=== PATIENT | female | born 1945 | race Caucasian/White ===

== ENCOUNTER → 2017-01-01 | Outpatient (CLI) | payer MEDICARE, MEDICAID ==
[~2017-01-01] MED LIST: ALBU8.5H3 INH; ASCO10004 PO; ASPI-515 PO; BUDE10.22 INH; CARV6.252 PO; CETI10CA PO; CYCL1DRO EACHEYE; DICL100G8 TP; FURO-93 PO; GABA300C10 PO; HYDR-3307 PO; INSU100C5 SQ; INSU100V8 SQ; LATA2.5D3 EACHEYE; LISI-468 PO; METF500T4 PO; METR500T PO; MULT-717 PO; OXYB10TA PO; POTA10CA PO; SIMV20TA3 PO; TIOT18CA INH; VIT1CAPS16 PO; [UNRECOGNIZED DRUG - CODE] PO; [UNRECOGNIZED DRUG - OTHER] EACHEYE; albuterol INH
== END | disposition home or self-care (01) ==
LOC: CFH 07:19
PROVIDERS: ATTEND Physical Medicine & Rehabilitation
DX: R10.9 Unspecified abdominal pain (principal); M47.897 Other spondylosis, lumbosacral region; Z98.890 Other specified postprocedural states; Z90.49 Acquired absence of other specified parts of digestive tract
CPT/HCPCS: 74150

== ENCOUNTER 2017-01-13 12:15 | Emergency (ER) | payer MEDICARE, MEDICAID ==
[~2017-01-13] VITALS: Ht 160 cm; Wt 60.0 kg
[2017-01-13] MEDS ORDERED: HYDROmorphone 1 MG/ML, 1ML ONE (14:59)
[2017-01-13] MEDS ORDERED: HYDROmorphone 1 MG/ML, 1ML IM ONE (15:00)
[2017-01-13 15:11] VITALS: BP 135/93
== END 2017-01-13 15:28 | disposition home or self-care (01) ==
LOC: ED 14:10
DX: R10.9 Unspecified abdominal pain (principal); G89.29 Other chronic pain; J44.9 Chronic obstructive pulmonary disease, unspecified; E11.9 Type 2 diabetes mellitus without complications; J45.909 Unspecified asthma, uncomplicated; F17.210 Nicotine dependence, cigarettes, uncomplicated
CPT/HCPCS: 96372; 99283; J1170

== ENCOUNTER 2017-02-20 09:14 | Emergency (ER) | payer MEDICARE, MEDICAID ==
[~2017-02-20] VITALS: Ht 160 cm; Wt 59.0 kg
[2017-02-20] MEDS ORDERED: HYDROmorphone 1 MG/ML, 1ML IM ONE (10:00)
[2017-02-20] MEDS ORDERED: HYDROmorphone 1 MG/ML, 1ML ONE (10:48)
[2017-02-20 11:33] VITALS: BP 107/76
== END 2017-02-20 11:35 | disposition home or self-care (01) ==
LOC: ED 11:30
DX: S80.01XA Contusion of right knee, initial encounter (principal); E11.9 Type 2 diabetes mellitus without complications; I10 Essential (primary) hypertension; Z88.0 Allergy status to penicillin; W19.XXXA Unspecified fall, initial encounter; Y93.01 Activity, walking, marching and hiking; Y99.8 Other external cause status; Y92.002 Bathroom of unspecified non-institutional (private) residence as the place of occurrence of the external cause
CPT/HCPCS: 73502; 73564; 96372; 99284; J1170

== ENCOUNTER → 2017-03-04 | Outpatient (CLI) | payer MEDICARE, MEDICAID ==
[~2017-03-04] MED LIST changes: +REGADENOSON 0.4 MG/5 ML SYRINGE ONE
== END | disposition home or self-care (01) ==
LOC: CFH 07:22
PROVIDERS: ATTEND Internal Medicine Cardiovascular Disease
DX: I08.3 Combined rheumatic disorders of mitral, aortic and tricuspid valves (principal); I10 Essential (primary) hypertension; E11.9 Type 2 diabetes mellitus without complications; F17.210 Nicotine dependence, cigarettes, uncomplicated
CPT/HCPCS: 78452; 93017; 93306; A9502; J2785

== ENCOUNTER 2017-04-15 09:31 | Day surgery (SDC) | payer MEDICARE, MEDICAID ==
[~2017-04-15] VITALS: Ht 157.5 cm; Wt 62.0 kg
[~2017-04-15 09:31] MED LIST changes: -REGADENOSON 0.4 MG/5 ML SYRINGE ONE
[2017-04-15] MEDS ORDERED: SODIUM CHLORIDE 0.9% 1,000 ML IV SCH (10:27)
[2017-04-15] MEDS ORDERED: ACETAMINOPHEN 325 MG TABLET PO PRN (10:30)
[2017-04-15] MEDS ORDERED: BISACODYL 5 MG EC TABLET PO PRN (10:30)
[2017-04-15] MEDS ORDERED: ONDANSETRON 2MG/ML, 2ML IVPush PRN (10:30)
[2017-04-15] MEDS ORDERED: BISACODYL 10 MG SUPP PR PRN (10:30)
[2017-04-15] MEDS ORDERED: OXYC1TAB7 PO (11:18)
[2017-04-15] MEDS ORDERED: IBUP-1222 PO (11:18)
[2017-04-15] MEDS ORDERED: LOPE2CAP PO (11:18)
[2017-04-15] MEDS ORDERED: CHOL2000 PO (11:18)
[2017-04-15] MEDS ORDERED: AMLO10TA2 PO (11:18)
[2017-04-15] MEDS ORDERED: ONDA4TAB13 SL (11:18)
[2017-04-15] MEDS ORDERED: TRAZ50TA18 PO (11:18)
[2017-04-15] MEDS ORDERED: SERT100T5 PO (11:18)
[2017-04-15] MEDS ORDERED: INSU100V SQ (11:18)
[2017-04-15] MEDS ORDERED: BECL8.7H NS (11:18)
[2017-04-15] MEDS ORDERED: MONT10TA9 PO (11:18)
[2017-04-15] MEDS ORDERED: RISP0.5T3 PO (11:18)
[2017-04-15] MEDS ORDERED: OMEP40CA6 PO (11:18)
[2017-04-15] MEDS ORDERED: CALC-72 PO (11:18)
[2017-04-15] MEDS ORDERED: ATOR40TA PO (11:18)
[2017-04-15 11:19] LABS: BLOOD UREA NITROGEN 13 mg/dL (7-18)
[2017-04-15] MEDS ORDERED: FENTANYL PF 100 MCG/2ML ONE (11:34)
[2017-04-15] MEDS ORDERED: MIDAZOLAM 1 MG/ML, 5ML ONE (11:34)
[2017-04-15] MEDS ORDERED: LIDOCAINE 2%, 20ML ONE (11:34)
[2017-04-15] MEDS ORDERED: SODIUM CHLORIDE 0.9% 500 ML IV SCH (13:30)
[2017-04-15] MEDS ORDERED: ALUMINUM/MAG/SIMETHICONE 30 ML UDC PO ONE (15:30)
[2017-04-15] MEDS ORDERED: ZOLPIDEM 5MG TABLET PO PRN (21:00)
== END 2017-04-15 16:33 | disposition home or self-care (01) ==
LOC: CACL 09:31
PROVIDERS: ATTEND Internal Medicine Cardiovascular Disease
DX: I25.10 Atherosclerotic heart disease of native coronary artery without angina pectoris (principal); E78.5 Hyperlipidemia, unspecified; E11.9 Type 2 diabetes mellitus without complications; I10 Essential (primary) hypertension; F17.210 Nicotine dependence, cigarettes, uncomplicated; Z88.6 Allergy status to analgesic agent; J44.9 Chronic obstructive pulmonary disease, unspecified; E78.00 Pure hypercholesterolemia, unspecified; K21.9 Gastro-esophageal reflux disease without esophagitis; Z79.01 Long term (current) use of anticoagulants
CPT/HCPCS: 36415; 71020; 80048; 85025; 85610; 85730; 93458; 99156; C1894; J2250; J3010; J3490; Q9967

== ENCOUNTER → 2017-04-23 | Outpatient (CLI) | payer MEDICARE, MEDICAID ==
[~2017-04-23] MED LIST changes: +AMLO10TA2 PO; +ATOR40TA PO; +BECL8.7H NS; +CALC-72 PO; +CHOL2000 PO; +IBUP-1222 PO; +INSU100V SQ; +LOPE2CAP PO; +MONT10TA9 PO; +OMEP40CA6 PO; +ONDA4TAB13 SL; +OXYC1TAB7 PO; +RISP0.5T3 PO; +SERT100T5 PO; +TRAZ50TA18 PO
== END | disposition home or self-care (01) ==
LOC: CFH 11:02
PROVIDERS: ATTEND Physical Medicine & Rehabilitation
DX: M19.072 Primary osteoarthritis, left ankle and foot (principal); M77.32 Calcaneal spur, left foot

== ENCOUNTER → 2017-06-29 | Outpatient (CLI) | payer MEDICARE, MEDICAID ==
[~2017-06-29] MED LIST changes: -ALBU8.5H3 INH; +ALBU8.5H8 INH; +CALC-534 PO; -CALC-72 PO; +DICL100G19 TP; -DICL100G8 TP
== END | disposition home or self-care (01) ==
LOC: CFH 15:34
PROVIDERS: ATTEND Physical Medicine & Rehabilitation
DX: M50.323 Other cervical disc degeneration at C6-C7 level (principal); M48.03 Spinal stenosis, cervicothoracic region; M48.02 Spinal stenosis, cervical region; M25.511 Pain in right shoulder; Z98.890 Other specified postprocedural states
CPT/HCPCS: 72125

== ENCOUNTER → 2017-06-30 | Outpatient (CLI) | payer MEDICARE, MEDICAID ==
[~2017-06-30] MED LIST changes: +LIDOCAINE 1%, 20ML ONE; +OMNIPAQUE 300 MG/ML, 10ML VIAL ONE
== END ==
LOC: RAD 13:24
PROVIDERS: ATTEND Physical Medicine & Rehabilitation
DX: M75.101 Unspecified rotator cuff tear or rupture of right shoulder, not specified as traumatic (principal); M94.211 Chondromalacia, right shoulder; M54.12 Radiculopathy, cervical region; E11.9 Type 2 diabetes mellitus without complications
CPT/HCPCS: 73040; 73201; 82962; J3490; Q9967

== ENCOUNTER 2017-07-02 08:45 | Emergency (ER) | payer MEDICARE, MEDICAID ==
[~2017-07-02] VITALS: Ht 160 cm; Wt 59.0 kg
[~2017-07-02 08:45] MED LIST changes: -LIDOCAINE 1%, 20ML ONE; -OMNIPAQUE 300 MG/ML, 10ML VIAL ONE
[2017-07-02 08:50] VITALS: BP 138/81
[2017-07-02] MEDS ORDERED: OXYcodone/APAP 5/325MG TABLET ONE (09:19)
[2017-07-02] MEDS ORDERED: NAPROXEN 500 MG TABLET PO ONE (09:30)
[2017-07-02] MEDS ORDERED: OXYcodone/APAP 5/325MG TABLET PO ONE (09:30)
[2017-07-02] MEDS ORDERED: FLUCONAZOLE 100 MG TABLET PO ONE (11:30)
== END 2017-07-02 10:48 | disposition home or self-care (01) ==
LOC: ED 09:02
DX: G89.29 Other chronic pain (principal); M25.552 Pain in left hip; M25.511 Pain in right shoulder; J44.9 Chronic obstructive pulmonary disease, unspecified; E11.9 Type 2 diabetes mellitus without complications; I10 Essential (primary) hypertension; F17.200 Nicotine dependence, unspecified, uncomplicated; Z88.1 Allergy status to other antibiotic agents
CPT/HCPCS: 99284

== ENCOUNTER 2017-08-17 05:38 | Day surgery (SDC) | payer MEDICARE, MEDICAID ==
[~2017-08-17] VITALS: Ht 160 cm; Wt 62.1 kg
[~2017-08-17 05:38] MED LIST changes: +OXYC5CAP2 PO
[2017-08-17] MEDS ORDERED: FENTANYL PF 100 MCG/2ML ONE (06:07)
[2017-08-17] MEDS ORDERED: PROPOFOL 10 MG/ML, 20ML ONE (06:08)
[2017-08-17] MEDS ORDERED: LACTATED RINGERS 1,000 ML IV SCH (06:08)
[2017-08-17] MEDS ORDERED: CEFAZOLIN 1,000 MG ONE (06:08)
[2017-08-17] MEDS ORDERED: ONDANSETRON 2MG/ML, 2ML ONE (06:08)
[2017-08-17] MEDS ORDERED: DEXAMETHASONE 4 MG/ML, 1ML ONE (06:08)
[2017-08-17] MEDS ORDERED: MIDAZOLAM 1 MG/ML, 2ML ONE (06:08)
[2017-08-17] MEDS ORDERED: EPINEPHRINE 1 MG/ML, 1ML ONE (06:09)
[2017-08-17] MEDS ORDERED: BUPIVACAINE/PF 0.5% ONE (06:09)
[2017-08-17] MEDS ORDERED: LIDOCAINE/PF 1%, 30ML ONE (06:09)
[2017-08-17 06:11] VITALS: BP 93/61
[2017-08-17] MEDS ORDERED: LIDOCAINE GEL 2%, 5ML ONE (06:12)
[2017-08-17] MEDS ORDERED: SUCCINYLCHOLINE 20 MG/ML, 10ML ONE (07:05)
[2017-08-17] MEDS ORDERED: EPHEDRINE 50 MG/ML, 1ML ONE (07:05)
[2017-08-17] MEDS ORDERED: PHENYLEPHRINE 10 MG/ML ONE (07:05)
[2017-08-17] MEDS ORDERED: LIDOCAINE 1%-EPI 1:100K, 30ML INFIL ONE (07:33)
[2017-08-17] MEDS ORDERED: BUPIVACAINE/PF-EPI 0.5% 1:200K INFIL ONE (07:34)
[2017-08-17] MEDS ORDERED: TEMPLATE NON-FORMULARY MED. (Oxycodone Hcl** 5 MG) PO SCH (08:00)
[2017-08-17] MEDS ORDERED: FENTANYL PF 100 MCG/2ML IV PRN (08:00)
[2017-08-17] MEDS ORDERED: LORazepam 2 MG/ML, 1ML IVPush PRN (08:00)
[2017-08-17] MEDS ORDERED: DIAZEPAM 5 MG/ML, 2ML IVPush PRN (08:00)
[2017-08-17] MEDS ORDERED: LABETALOL 5MG/ML, 20ML IV PRN (08:00)
[2017-08-17] MEDS ORDERED: MEPERIDINE/PF 25MG/0.5ML IVPush PRN (08:00)
[2017-08-17] MEDS ORDERED: ACETAMINOPHEN 325 MG TABLET PO PRN (08:00)
[2017-08-17] MEDS ORDERED: ASPIRIN 81 MG TABLET EC PO SCH (08:00)
[2017-08-17] MEDS ORDERED: PROMETHAZINE 25 MG/ML, 1ML IV PRN (08:00)
[2017-08-17] MEDS ORDERED: ONDANSETRON 2MG/ML, 2ML IVPush PRN (08:00)
[2017-08-17] MEDS ORDERED: OXYcodone 5 MG/5 ML ORAL.SOL UDC PO PRN (08:00)
[2017-08-17] MEDS ORDERED: ALBUTEROL/IPRATROPIUM 2.5MG/0.5MG, 3 ML NPPB PRN (08:00)
[2017-08-17] MEDS ORDERED: hydrALAzine 20 MG/ML, 1ML IV PRN (08:00)
[2017-08-17] MEDS ORDERED: HYDROmorphone 1 MG/ML, 1ML IV PRN (08:00)
[2017-08-17] MEDS ORDERED: MIDAZOLAM 1 MG/ML, 2ML IV PRN (08:00)
[2017-08-17] MEDS ORDERED: ONDANSETRON ODT 4 MG PO PRN (08:00)
[2017-08-17] MEDS ORDERED: BECLOMETHASONE DIPROPIONATE NS SCH (09:00)
[2017-08-17] MEDS ORDERED: AMLODIPINE 5 MG TABLET PO SCH (09:00)
[2017-08-17] MEDS ORDERED: LOPERAMIDE 2 MG CAPSULE PO SCH (09:00)
[2017-08-17] MEDS ORDERED: GABAPENTIN 300 MG CAPSULE PO SCH (09:00)
[2017-08-17] MEDS ORDERED: CARVEDILOL 6.25 MG TABLET PO SCH (09:00)
[2017-08-17] MEDS ORDERED: metFORMIN 500 MG TABLET PO SCH (09:00)
[2017-08-17] MEDS ORDERED: MONTELUKAST 10 MG TABLET PO SCH (09:00)
[2017-08-17] MEDS ORDERED: OMEPRAZOLE 20 MG CAPSULE.DR PO SCH (09:00)
[2017-08-17] MEDS ORDERED: SERTRALINE 100MG TABLET PO SCH (09:00)
[2017-08-17] MEDS ORDERED: INSULIN LISPRO SQ SCH (11:00)
[2017-08-17] MEDS ORDERED: ATORVASTATIN 40 MG TABLET PO SCH (21:00)
[2017-08-17] MEDS ORDERED: INSULIN DETEMIR 100 UNITS/ML, PEN SQ-INSULIN SCH (21:00)
[2017-08-17] MEDS ORDERED: RISPERIDONE 0.5 MG TABLET PO SCH (21:00)
[2017-08-17] MEDS ORDERED: TRAZODONE 50MG TABLET PO SCH (21:00)
[2017-08-17] MEDS ORDERED: TIOTROPIUM BROMIDE INH SCH (21:00)
== END 2017-08-17 10:20 ==
LOC: OUT 05:38
PROVIDERS: ATTEND Orthopaedic Surgery
DX: M75.41 Impingement syndrome of right shoulder (principal); M75.111 Incomplete rotator cuff tear or rupture of right shoulder, not specified as traumatic; M19.011 Primary osteoarthritis, right shoulder; E11.9 Type 2 diabetes mellitus without complications; E78.00 Pure hypercholesterolemia, unspecified; J44.9 Chronic obstructive pulmonary disease, unspecified; G89.29 Other chronic pain; Z96.651 Presence of right artificial knee joint; Z98.890 Other specified postprocedural states; Z90.710 Acquired absence of both cervix and uterus
CPT/HCPCS: 29823; 29826; 82962; 93005; C1763; J0171; J0330; J0690; J1100; J2250; J2370; J2405; J2704; J3010; J3490

== ENCOUNTER 2017-10-26 10:39 | Emergency (ER) | payer MEDICARE, MEDICAID ==
[~2017-10-26] VITALS: Ht 160 cm; Wt 56.8 kg
[2017-10-26 11:27] VITALS: BP 132/82
[2017-10-26 12:10] LABS: BASOPHILS # (AUTO) 0.07 x10^3/uL (0-0.1); BASOPHILS % (AUTO) 1 % (0-1); EOSINOPHILS # (AUTO) 0.09 x10^3/uL (0-0.4); EOSINOPHILS % (AUTO) 1 % (1-7); LYMPHOCYTES # (AUTO) 2.72 x10^3/uL (1-3.4); LYMPHOCYTES % (AUTO) 26 % (22-44); MD NO; MEAN CORPUSCULAR HEMOGLOBIN 29.7 pg (27.0-34.8); MEAN CORPUSCULAR HGB CONC 33.4 g/dL (32.4-35.8); MEAN CORPUSCULAR VOLUME 88.7 fL (80-100); MEAN PLATELET VOLUME 8.7 fL (7.4-10.4); MONOCYTES # (AUTO) 0.74 x10^3/uL (0.2-0.8); MONOCYTES % (AUTO) 7 % (2-9); NEUTROPHILS # (AUTO) 6.73 x10^3/uL (1.8-6.8); NEUTROPHILS % (AUTO) 65 % (42-75); PLATELET COUNT 275 x10^3/uL (130-400); RED BLOOD COUNT 5.14 x10^6/uL (3.82-5.3); RED CELL DISTRIBUTION WIDTH 14.9 % (9.6-15.2)
[2017-10-26 12:20] LABS: ALBUMIN 3.9 g/dL (3.4-5.0); ANION GAP 8 mmol/L (5-15); CALCIUM 9.5 mg/dL (8.5-10.1); CHLORIDE 102 mmol/L (98-107); CREATININE 0.81 mg/dL (0.55-1.02)
[2017-10-26 12:24] LABS: TROPONIN I < 0.015 ng/mL (0.000-0.045)
[2017-10-26] MEDS ORDERED: OXYcodone/APAP 5/325MG TABLET ONE (13:07)
[2017-10-26] MEDS ORDERED: OXYcodone/APAP 5/325MG TABLET PO ONE (13:30)
== END 2017-10-26 13:24 | disposition home or self-care (01) ==
LOC: ED 13:06
DX: R07.89 Other chest pain (principal); J20.8 Acute bronchitis due to other specified organisms; B96.89 Other specified bacterial agents as the cause of diseases classified elsewhere; E11.9 Type 2 diabetes mellitus without complications; E78.5 Hyperlipidemia, unspecified; I10 Essential (primary) hypertension; J44.9 Chronic obstructive pulmonary disease, unspecified
CPT/HCPCS: 36415; 71046; 80048; 82040; 84484; 85025; 93005; 99285

== ENCOUNTER 2018-01-18 09:09 | Emergency (ER) | payer MEDICARE, MEDICAID ==
[~2018-01-18] VITALS: Ht 160 cm; Wt 57.0 kg
[2018-01-18 10:43] VITALS: BP 153/77
[2018-01-18 10:57] LABS: BASOPHILS # (AUTO) 0.05 x10^3/uL (0-0.1); BASOPHILS % (AUTO) 0 % (0-1); EOSINOPHILS % (AUTO) 1 % (1-7); LYMPHOCYTES # (AUTO) 3.04 x10^3/uL (1-3.4); LYMPHOCYTES % (AUTO) 27 % (22-44); MD NO; MEAN CORPUSCULAR HEMOGLOBIN 30.8 pg (27.0-34.8); MEAN CORPUSCULAR HGB CONC 33.8 g/dL (32.4-35.8); MEAN PLATELET VOLUME 8.1 fL (7.4-10.4); MONOCYTES # (AUTO) 0.76 x10^3/uL (0.2-0.8); MONOCYTES % (AUTO) 7 % (2-9); NEUTROPHILS # (AUTO) 7.22 x10^3/uL (1.8-6.8); NEUTROPHILS % (AUTO) 65 % (42-75); PLATELET COUNT 274 x10^3/uL (130-400); RED BLOOD COUNT 4.36 x10^6/uL (3.82-5.3); RED CELL DISTRIBUTION WIDTH 14.3 % (9.6-15.2)
[2018-01-18] MEDS ORDERED: OXYcodone/APAP 10/325MG TABLET PO ONE (11:00)
[2018-01-18 11:03] LABS: INTERNATIONAL NORMALIZED RATIO 1.05 (0.93-1.1); PROTHROMBIN TIME 10.8 Seconds (9.6-11.5)
[2018-01-18] MEDS ORDERED: OXYcodone/APAP 10/325MG TABLET ONE (11:05)
[2018-01-18 11:07] LABS: ALANINE AMINOTRANSFERASE 18 U/L (12-78); ALBUMIN 3.6 g/dL (3.4-5.0); ANION GAP 9 mmol/L (5-15); CALCIUM 8.5 mg/dL (8.5-10.1); CHLORIDE 105 mmol/L (98-107); CREATININE 0.99 mg/dL (0.55-1.02)
[2018-01-18 11:10] LABS: ALKALINE PHOSPHATASE 66 U/L (45-117); BILIRUBIN,TOTAL 0.6 mg/dL (0.2-1.0); TOTAL PROTEIN 6.8 g/dL (6.4-8.2)
== END 2018-01-18 12:07 | disposition home or self-care (01) ==
LOC: ED 11:43
DX: R10.13 Epigastric pain (principal); I10 Essential (primary) hypertension; E11.9 Type 2 diabetes mellitus without complications; J44.9 Chronic obstructive pulmonary disease, unspecified; E78.5 Hyperlipidemia, unspecified; F17.200 Nicotine dependence, unspecified, uncomplicated
CPT/HCPCS: 36415; 74022; 80053; 83605; 83690; 85025; 85610; 93005; 99285

== ENCOUNTER 2018-01-25 09:31 | Emergency (ER) | payer MEDICARE, MEDICAID ==
[~2018-01-25] VITALS: Ht 160 cm; Wt 55.3 kg
[2018-01-25] MEDS ORDERED: OXYcodone/APAP 10/325MG TABLET ONE (10:14)
[2018-01-25 10:26] VITALS: BP 142/70
[2018-01-25] MEDS ORDERED: OXYcodone/APAP 10/325MG TABLET PO ONE (10:30)
== END 2018-01-25 10:47 | disposition home or self-care (01) ==
LOC: ED 10:32
DX: M54.6 Pain in thoracic spine (principal); M54.5 Low back pain; I10 Essential (primary) hypertension; E11.9 Type 2 diabetes mellitus without complications; E78.5 Hyperlipidemia, unspecified; J44.9 Chronic obstructive pulmonary disease, unspecified; F17.200 Nicotine dependence, unspecified, uncomplicated; Z79.4 Long term (current) use of insulin; Z79.82 Long term (current) use of aspirin
CPT/HCPCS: 99283

== ENCOUNTER 2018-01-30 08:00 | Emergency (ER) | payer MEDICARE, MEDICAID ==
[~2018-01-30] VITALS: Ht 160 cm; Wt 55.0 kg
[2018-01-30 08:02] VITALS: BP 143/83
== END 2018-01-30 08:58 | disposition home or self-care (01) ==
LOC: ED 08:52
DX: M54.42 Lumbago with sciatica, left side (principal); J44.9 Chronic obstructive pulmonary disease, unspecified; E11.9 Type 2 diabetes mellitus without complications; E78.5 Hyperlipidemia, unspecified; I10 Essential (primary) hypertension
CPT/HCPCS: 99281

== ENCOUNTER 2018-03-04 14:29 | Inpatient (IN) | payer MEDICARE, MEDICAID ==
[~2018-03-04] VITALS: Ht 160 cm; Wt 58.8 kg
[2018-03-04] MEDS ORDERED: SODIUM CHLORIDE FLUSH 10ML SYR IVF ONE ×2 (15:00→15:30)
[2018-03-04] MEDS ORDERED: SODIUM CHLORIDE 0.9% 1,000ML IVBOLUS ONE (15:30)
[2018-03-04 15:53] LABS: INTERNATIONAL NORMALIZED RATIO 0.96 (0.93-1.1); MEAN CORPUSCULAR HEMOGLOBIN 30.3 pg (27.0-34.8); MEAN CORPUSCULAR VOLUME 89.3 fL (80-100); MEAN PLATELET VOLUME 9.1 fL (7.4-10.4); PLATELET COUNT 285 x10^3/uL (130-400); RED BLOOD COUNT 3.38 x10^6/uL (3.82-5.3); RED CELL DISTRIBUTION WIDTH 14.2 % (9.6-15.2)
[2018-03-04 15:56] LABS: ALANINE AMINOTRANSFERASE 17 U/L (12-78); ALBUMIN 2.6 g/dL (3.4-5.0); ANION GAP 14 mmol/L (5-15); CALCIUM 9.9 mg/dL (8.5-10.1); CHLORIDE 101 mmol/L (98-107); CREATININE 3.66 mg/dL (0.55-1.02)
[2018-03-04 15:58] LABS: ALKALINE PHOSPHATASE 75 U/L (45-117); BILIRUBIN,TOTAL 0.2 mg/dL (0.2-1.0); TOTAL PROTEIN 6.7 g/dL (6.4-8.2)
[2018-03-04] MEDS ORDERED: CEFTRIAXONE PMX 1GM/50ML 50 ML IV ONE (16:00)
[2018-03-04] MEDS ORDERED: SODIUM CHLORIDE 0.9%, 500ML IVBOLUS ONE ×2 (16:00→16:30)
[2018-03-04 16:03] LABS: TROPONIN I < 0.015 ng/mL (0.000-0.045)
[2018-03-04 16:10] LABS: MICROSCOPIC INDICATED
[2018-03-04 16:13] LABS: CULTURE INDICATED? YES
[2018-03-04] MEDS ORDERED: CEFTRIAXONE PMX 1GM/50ML 50 ML ONE (16:20)
[2018-03-04 16:26] LABS: BASOPHILS # (AUTO) 0.06 x10^3/uL (0-0.1); BASOPHILS % (AUTO) 0 % (0-1); EOSINOPHILS % (AUTO) 1 % (1-7); LYMPHOCYTES # (AUTO) 1.94 x10^3/uL (1-3.4); LYMPHOCYTES % (AUTO) 11 % (22-44); MONOCYTES # (AUTO) 1.23 x10^3/uL (0.2-0.8); MONOCYTES % (AUTO) 7 % (2-9); NEUTROPHILS # (AUTO) 14.33 x10^3/uL (1.8-6.8); NEUTROPHILS % (AUTO) 81 % (42-75)
[2018-03-04 16:27] LABS: MD SCAN
[2018-03-04] MEDS: PIPERACILLIN/TAZO/PMX 2.25GM 50 ML IVPB SCH (17:25)
[2018-03-04] MEDS ORDERED: ONDANSETRON ODT 4 MG PO PRN (17:30)
[2018-03-04] MEDS: INSULIN LISPRO 100 UNITS/ML, PEN SQ-INSULIN SCH ×2 (17:30→22:00)
[2018-03-04] MEDS ORDERED: POLYETHYLENE GLYCOL 17 GM PACKET PO PRN (17:30)
[2018-03-04] MEDS ORDERED: NOREPINEPHRINE 4 MG in SODIUM CHLORIDE 0.9% 246 ML IV PRN (17:30)
[2018-03-04] MEDS ORDERED: MICAFUNGIN 100 MG in SODIUM CHLORIDE 0.9% 100 ML IV SCH (17:30)
[2018-03-04] MEDS: SODIUM CHLORIDE 0.9% 1,000 ML IV SCH ×2 (17:30→23:36)
[2018-03-04] MEDS ORDERED: PROMETHAZINE 25 MG/ML, 1ML IM PRN (17:30)
[2018-03-04] MEDS ORDERED: ACETAMINOPHEN 325 MG TABLET PO PRN (17:30)
[2018-03-04] MEDS ORDERED: DOCUSATE 100 MG CAPSULE PO PRN (17:30)
[2018-03-04] MEDS ORDERED: PIPERACILLIN/TAZO 2.25 GM in SODIUM CHLORIDE 0.9% 50 ML IV SCH (17:30)
[2018-03-04] MEDS ORDERED: BISACODYL 10 MG SUPP PR PRN (17:30)
[2018-03-04] MEDS ORDERED: morphine SULFATE 10 MG/ML, 1ML IVPush PRN (17:30)
[2018-03-04] MEDS ORDERED: VANCOMYCIN PER PHARMACY MC PRN (17:30)
[2018-03-04 18:05] LABS: HEMOGLOBIN A1C 7.7 % (4.2-6.3)
[2018-03-04] MEDS ORDERED: HEPARIN 5,000 UNITS/ML, 1ML ONE (18:19)
[2018-03-04] MEDS: HEPARIN 5,000 UNITS/ML, 1ML SQ SCH (18:23)
[2018-03-04] MEDS: NICOTINE 14MG/24 HR PATCH.TD24 TD SCH (19:14)
[2018-03-04] MEDS ORDERED: NICOTINE 14MG/24 HR PATCH.TD24 ONE (19:15)
[2018-03-04] MEDS ORDERED: BUSP10TA PO (19:19)
[2018-03-04] MEDS: MICAFUNGIN 100 MG in SODIUM CHLORIDE 0.9% 100 ML IV SCH (19:49)
[2018-03-04 20:00] VITALS: BP 105/46
[2018-03-04] MEDS ORDERED: PHARMACOKINETIC MONITORING MC PRN (20:30)
[2018-03-04] MEDS ORDERED: IPRATROPIUM 0.5 MG/2.5 ML INHA NPPB SCH (20:30)
[2018-03-04] MEDS ORDERED: PHARMACOKINETIC CONSULTATION MC ONE (20:30)
[2018-03-04] MEDS ORDERED: VANCOMYCIN PMX 1GM/200ML 200 ML IV ONE (21:00)
[2018-03-04] MEDS: ATORVASTATIN 40 MG TABLET PO SCH (21:50)
[2018-03-04] MEDS: GABAPENTIN 300 MG CAPSULE PO SCH (21:50)
[2018-03-04] MEDS: TRAZODONE 50MG TABLET PO SCH (21:51)
[2018-03-04] MEDS: RISPERIDONE 0.5 MG TABLET PO SCH (21:51)
[2018-03-04] MEDS: NOREPINEPHRINE 4 MG in SODIUM CHLORIDE 0.9% 246 ML IV PRN (23:39)
[2018-03-05] MEDS: PIPERACILLIN/TAZO/PMX 2.25GM 50 ML IVPB SCH ×5 (00:18→23:50)
[2018-03-05] MEDS: HEPARIN 5,000 UNITS/ML, 1ML SQ SCH ×3 (01:28→16:17)
[2018-03-05 04:00] VITALS: BP 118/50
[2018-03-05 04:34] LABS: MEAN CORPUSCULAR HEMOGLOBIN 30.5 pg (27.0-34.8); MEAN CORPUSCULAR HGB CONC 34.2 g/dL (32.4-35.8); MEAN CORPUSCULAR VOLUME 89.1 fL (80-100); MEAN PLATELET VOLUME 8.8 fL (7.4-10.4); PLATELET COUNT 311 x10^3/uL (130-400); RED CELL DISTRIBUTION WIDTH 14.5 % (9.6-15.2)
[2018-03-05 04:44] LABS: ALANINE AMINOTRANSFERASE 16 U/L (12-78); ALBUMIN 2.1 g/dL (3.4-5.0); ANION GAP 11 mmol/L (5-15); CALCIUM 8.7 mg/dL (8.5-10.1); CHLORIDE 115 mmol/L (98-107); CREATININE 1.86 mg/dL (0.55-1.02)
[2018-03-05 04:47] LABS: ALKALINE PHOSPHATASE 71 U/L (45-117); BILIRUBIN,TOTAL 0.4 mg/dL (0.2-1.0); TOTAL PROTEIN 5.8 g/dL (6.4-8.2)
[2018-03-05 05:13] LABS: BASOPHILS # (AUTO) 0.01 x10^3/uL (0-0.1); BASOPHILS % (AUTO) 0 % (0-1); EOSINOPHILS # (AUTO) 0.17 x10^3/uL (0-0.4); EOSINOPHILS % (AUTO) 1 % (1-7); LYMPHOCYTES # (AUTO) 2.27 x10^3/uL (1-3.4); LYMPHOCYTES % (AUTO) 12 % (22-44); MD SCAN; MONOCYTES # (AUTO) 1.14 x10^3/uL (0.2-0.8); MONOCYTES % (AUTO) 6 % (2-9); NEUTROPHILS # (AUTO) 15.65 x10^3/uL (1.8-6.8); NEUTROPHILS % (AUTO) 81 % (42-75)
[2018-03-05] MEDS: NOREPINEPHRINE 4 MG in SODIUM CHLORIDE 0.9% 246 ML IV PRN ×2 (05:18→09:50)
[2018-03-05] MEDS: SODIUM BICARB 8.4%,50ML SYR. 50 MEQ in SODIUM CHLORIDE 0.45% 1,000 ML IV SCH ×2 (07:54→14:37)
[2018-03-05] MEDS: INSULIN LISPRO 100 UNITS/ML, PEN SQ-INSULIN SCH ×4 (07:55→21:32)
[2018-03-05] MEDS: IPRATROPIUM 0.5 MG/2.5 ML INHA NPPB SCH ×2 (08:30→20:18)
[2018-03-05] MEDS: BUDESONIDE 0.5 MG/2 ML INHA NPPB SCH ×2 (08:30→20:18)
[2018-03-05] MEDS: ASPIRIN 81 MG TABLET EC PO SCH (09:36)
[2018-03-05] MEDS: LATANOPROST OPHTH 0.005%, 2.5ML EACHEYE SCH (09:36)
[2018-03-05] MEDS: POTASSIUM CHLORIDE 10% 40 MEQ/30 ML UDC PO SCH ×2 (09:37→21:21)
[2018-03-05] MEDS: SERTRALINE 100MG TABLET PO SCH (09:37)
[2018-03-05] MEDS: GABAPENTIN 300 MG CAPSULE PO SCH ×3 (09:37→21:22)
[2018-03-05] MEDS: CHOLECALCIFEROL 1,000 UNIT TABLET PO SCH (09:37)
[2018-03-05] MEDS: MONTELUKAST 10 MG TABLET PO SCH (09:41)
[2018-03-05] MEDS: CIPROFLOXACIN OPHTH SOLN 0.3%, 5ML EACHEYE SCH ×4 (11:12→21:22)
[2018-03-05] MEDS: NICOTINE 14MG/24 HR PATCH.TD24 TD SCH (16:16)
[2018-03-05 19:02] LABS: RAPID INFLUENZA A Negative (Negative); RAPID INFLUENZA B Negative (Negative)
[2018-03-05] MEDS: MICAFUNGIN 100 MG in SODIUM CHLORIDE 0.9% 100 ML IV SCH (20:31)
[2018-03-05] MEDS: RISPERIDONE 0.5 MG TABLET PO SCH (21:22)
[2018-03-05] MEDS: ATORVASTATIN 40 MG TABLET PO SCH (21:22)
[2018-03-05] MEDS: TRAZODONE 50MG TABLET PO SCH (21:22)
[2018-03-06] MEDS: SODIUM BICARB 8.4%,50ML SYR. 50 MEQ in SODIUM CHLORIDE 0.45% 1,000 ML IV SCH (00:35)
[2018-03-06] MEDS: HEPARIN 5,000 UNITS/ML, 1ML SQ SCH ×3 (00:35→17:41)
[2018-03-06] MEDS: CIPROFLOXACIN OPHTH SOLN 0.3%, 5ML EACHEYE SCH ×6 (02:50→22:58)
[2018-03-06 04:00] VITALS: BP 120/45
[2018-03-06] MEDS: NOREPINEPHRINE 4 MG in SODIUM CHLORIDE 0.9% 246 ML IV PRN (05:37)
[2018-03-06] MEDS: PIPERACILLIN/TAZO/PMX 2.25GM 50 ML IVPB SCH ×4 (05:38→22:59)
[2018-03-06 05:40] LABS: BASOPHILS # (AUTO) 0.03 x10^3/uL (0-0.1); BASOPHILS % (AUTO) 0 % (0-1); EOSINOPHILS # (AUTO) 0.22 x10^3/uL (0-0.4); EOSINOPHILS % (AUTO) 1 % (1-7); LYMPHOCYTES # (AUTO) 2.24 x10^3/uL (1-3.4); LYMPHOCYTES % (AUTO) 14 % (22-44); MD NO; MEAN CORPUSCULAR HEMOGLOBIN 30.3 pg (27.0-34.8); MEAN CORPUSCULAR VOLUME 89.3 fL (80-100); MEAN PLATELET VOLUME 8.4 fL (7.4-10.4); MONOCYTES # (AUTO) 1.19 x10^3/uL (0.2-0.8); MONOCYTES % (AUTO) 8 % (2-9); NEUTROPHILS # (AUTO) 12.19 x10^3/uL (1.8-6.8); NEUTROPHILS % (AUTO) 77 % (42-75); PLATELET COUNT 300 x10^3/uL (130-400); RED BLOOD COUNT 2.93 x10^6/uL (3.82-5.3); RED CELL DISTRIBUTION WIDTH 14.4 % (9.6-15.2)
[2018-03-06 05:49] LABS: ALBUMIN 1.9 g/dL (3.4-5.0); ANION GAP 10 mmol/L (5-15); CALCIUM 8.4 mg/dL (8.5-10.1); CHLORIDE 114 mmol/L (98-107)
[2018-03-06 05:53] LABS: ALANINE AMINOTRANSFERASE 36 U/L (12-78); ALKALINE PHOSPHATASE 80 U/L (45-117); BILIRUBIN,TOTAL 0.5 mg/dL (0.2-1.0); CREATININE 1.01 mg/dL (0.55-1.02); TOTAL PROTEIN 5.5 g/dL (6.4-8.2)
[2018-03-06] MEDS ORDERED: ALBUTEROL/IPRATROPIUM 2.5MG/0.5MG, 3 ML ONE (06:59)
[2018-03-06] MEDS: INSULIN LISPRO 100 UNITS/ML, PEN SQ-INSULIN SCH ×4 (07:00→20:07)
[2018-03-06] MEDS: IPRATROPIUM 0.5 MG/2.5 ML INHA NPPB SCH ×4 (07:28→19:07)
[2018-03-06] MEDS: ALBUTEROL SULFATE 2.5 MG/3 ML NPPB PRN ×3 (07:29→13:53)
[2018-03-06] MEDS: BUDESONIDE 0.5 MG/2 ML INHA NPPB SCH ×3 (07:29→19:07)
[2018-03-06] MEDS: MONTELUKAST 10 MG TABLET PO SCH (08:48)
[2018-03-06] MEDS: GABAPENTIN 300 MG CAPSULE PO SCH ×3 (08:48→20:06)
[2018-03-06] MEDS: SERTRALINE 100MG TABLET PO SCH (08:48)
[2018-03-06] MEDS: ASPIRIN 81 MG TABLET EC PO SCH (08:48)
[2018-03-06] MEDS: CHOLECALCIFEROL 1,000 UNIT TABLET PO SCH (08:48)
[2018-03-06] MEDS: LATANOPROST OPHTH 0.005%, 2.5ML EACHEYE SCH (10:55)
[2018-03-06 15:07] VITALS: BP 122/63
[2018-03-06] MEDS: NICOTINE 14MG/24 HR PATCH.TD24 TD SCH (17:42)
[2018-03-06 18:44] VITALS: BP 116/74
[2018-03-06] MEDS: ATORVASTATIN 40 MG TABLET PO SCH (20:06)
[2018-03-06] MEDS: RISPERIDONE 0.5 MG TABLET PO SCH (20:06)
[2018-03-06] MEDS: TRAZODONE 50MG TABLET PO SCH (20:06)
[2018-03-06] MEDS: MICAFUNGIN 100 MG in SODIUM CHLORIDE 0.9% 100 ML IV SCH (20:07)
[2018-03-07 01:58] VITALS: BP 117/75
[2018-03-07] MEDS: CIPROFLOXACIN OPHTH SOLN 0.3%, 5ML EACHEYE SCH ×6 (03:21→22:51)
[2018-03-07] MEDS: OXYcodone IR 5MG TABLET PO PRN ×4 (03:21→23:22)
[2018-03-07] MEDS: PIPERACILLIN/TAZO/PMX 2.25GM 50 ML IVPB SCH ×2 (04:59→11:18)
[2018-03-07] MEDS: HEPARIN 5,000 UNITS/ML, 1ML SQ SCH ×3 (04:59→20:56)
[2018-03-07] MEDS: INSULIN LISPRO 100 UNITS/ML, PEN SQ-INSULIN SCH ×4 (07:30→20:57)
[2018-03-07] MEDS: LATANOPROST OPHTH 0.005%, 2.5ML EACHEYE SCH (07:32)
[2018-03-07] MEDS: GABAPENTIN 300 MG CAPSULE PO SCH ×3 (07:33→20:39)
[2018-03-07] MEDS: MONTELUKAST 10 MG TABLET PO SCH (07:33)
[2018-03-07] MEDS: CHOLECALCIFEROL 1,000 UNIT TABLET PO SCH (07:33)
[2018-03-07] MEDS: ASPIRIN 81 MG TABLET EC PO SCH (07:33)
[2018-03-07] MEDS: SERTRALINE 100MG TABLET PO SCH (07:37)
[2018-03-07 07:57] VITALS: BP 112/72
[2018-03-07 08:34] LABS: BASOPHILS # (AUTO) 0.06 x10^3/uL (0-0.1); BASOPHILS % (AUTO) 1 % (0-1); EOSINOPHILS # (AUTO) 0.28 x10^3/uL (0-0.4); EOSINOPHILS % (AUTO) 2 % (1-7); LYMPHOCYTES # (AUTO) 3.16 x10^3/uL (1-3.4); LYMPHOCYTES % (AUTO) 24 % (22-44); MD NO; MEAN CORPUSCULAR HEMOGLOBIN 30.1 pg (27.0-34.8); MEAN CORPUSCULAR HGB CONC 33.8 g/dL (32.4-35.8); MEAN CORPUSCULAR VOLUME 89.1 fL (80-100); MONOCYTES % (AUTO) 5 % (2-9); NEUTROPHILS # (AUTO) 9.03 x10^3/uL (1.8-6.8); NEUTROPHILS % (AUTO) 68 % (42-75); PLATELET COUNT 319 x10^3/uL (130-400); RED BLOOD COUNT 3.21 x10^6/uL (3.82-5.3); RED CELL DISTRIBUTION WIDTH 14.6 % (9.6-15.2)
[2018-03-07] MEDS: BUDESONIDE 0.5 MG/2 ML INHA NPPB SCH ×2 (10:37→21:20)
[2018-03-07 13:57] VITALS: BP 131/77
[2018-03-07] MEDS: NICOTINE 14MG/24 HR PATCH.TD24 TD SCH (17:11)
[2018-03-07 19:19] VITALS: BP 125/77
[2018-03-07] MEDS: MICAFUNGIN 100 MG in SODIUM CHLORIDE 0.9% 100 ML IV SCH (20:12)
[2018-03-07] MEDS: ATORVASTATIN 40 MG TABLET PO SCH (20:39)
[2018-03-07] MEDS: RISPERIDONE 0.5 MG TABLET PO SCH (20:39)
[2018-03-07] MEDS: TRAZODONE 50MG TABLET PO SCH (20:39)
[2018-03-07] MEDS: CEFDINIR 300 MG CAPSULE PO SCH (20:39)
[2018-03-07] MEDS: IPRATROPIUM 0.5 MG/2.5 ML INHA NPPB SCH (21:20)
[2018-03-08] MEDS: CIPROFLOXACIN OPHTH SOLN 0.3%, 5ML EACHEYE SCH ×5 (03:22→20:54)
[2018-03-08] MEDS: OXYcodone IR 5MG TABLET PO PRN ×5 (03:34→21:07)
[2018-03-08 03:38] VITALS: BP 114/67
[2018-03-08] MEDS: HEPARIN 5,000 UNITS/ML, 1ML SQ SCH ×3 (05:08→21:07)
[2018-03-08 06:53] VITALS: BP 125/69
[2018-03-08] MEDS: INSULIN LISPRO 100 UNITS/ML, PEN SQ-INSULIN SCH ×4 (08:25→21:00)
[2018-03-08] MEDS: IPRATROPIUM 0.5 MG/2.5 ML INHA NPPB SCH ×2 (10:00→20:23)
[2018-03-08] MEDS: BUDESONIDE 0.5 MG/2 ML INHA NPPB SCH ×2 (10:00→20:23)
[2018-03-08] MEDS: MONTELUKAST 10 MG TABLET PO SCH (10:40)
[2018-03-08] MEDS: CHOLECALCIFEROL 1,000 UNIT TABLET PO SCH (10:40)
[2018-03-08] MEDS: SERTRALINE 100MG TABLET PO SCH (10:40)
[2018-03-08] MEDS: CEFDINIR 300 MG CAPSULE PO SCH ×2 (10:40→20:55)
[2018-03-08] MEDS: ASPIRIN 81 MG TABLET EC PO SCH (10:40)
[2018-03-08] MEDS: GABAPENTIN 300 MG CAPSULE PO SCH ×3 (10:40→20:55)
[2018-03-08] MEDS: LATANOPROST OPHTH 0.005%, 2.5ML EACHEYE SCH (10:43)
[2018-03-08 12:58] VITALS: BP 103/64
[2018-03-08] MEDS: NICOTINE 14MG/24 HR PATCH.TD24 TD SCH (17:47)
[2018-03-08 19:00] VITALS: BP 111/69
[2018-03-08] MEDS: ATORVASTATIN 40 MG TABLET PO SCH (20:54)
[2018-03-08] MEDS: MICAFUNGIN 100 MG in SODIUM CHLORIDE 0.9% 100 ML IV SCH (20:54)
[2018-03-08] MEDS: RISPERIDONE 0.5 MG TABLET PO SCH (20:55)
[2018-03-08] MEDS: TRAZODONE 50MG TABLET PO SCH (20:55)
[2018-03-09] MEDS: CIPROFLOXACIN OPHTH SOLN 0.3%, 5ML EACHEYE SCH ×7 (00:20→23:58)
[2018-03-09 01:00] VITALS: BP 126/76
[2018-03-09] MEDS: HEPARIN 5,000 UNITS/ML, 1ML SQ SCH ×3 (04:32→20:25)
[2018-03-09] MEDS: OXYcodone IR 5MG TABLET PO PRN ×3 (05:34→17:18)
[2018-03-09 06:55] VITALS: BP 146/74
[2018-03-09] MEDS: SERTRALINE 100MG TABLET PO SCH (08:37)
[2018-03-09] MEDS: CEFDINIR 300 MG CAPSULE PO SCH (08:37)
[2018-03-09] MEDS: ASPIRIN 81 MG TABLET EC PO SCH (08:37)
[2018-03-09] MEDS: CHOLECALCIFEROL 1,000 UNIT TABLET PO SCH (08:37)
[2018-03-09] MEDS: LATANOPROST OPHTH 0.005%, 2.5ML EACHEYE SCH (08:37)
[2018-03-09] MEDS: GABAPENTIN 300 MG CAPSULE PO SCH ×3 (08:37→20:25)
[2018-03-09] MEDS: MONTELUKAST 10 MG TABLET PO SCH (08:37)
[2018-03-09] MEDS: INSULIN LISPRO 100 UNITS/ML, PEN SQ-INSULIN SCH ×4 (08:38→20:25)
[2018-03-09] MEDS: IPRATROPIUM 0.5 MG/2.5 ML INHA NPPB SCH ×2 (09:00→21:00)
[2018-03-09] MEDS: BUDESONIDE 0.5 MG/2 ML INHA NPPB SCH ×2 (09:00→21:00)
[2018-03-09 12:20] VITALS: BP 142/80
[2018-03-09] MEDS: NICOTINE 14MG/24 HR PATCH.TD24 TD SCH (17:18)
[2018-03-09 19:00] VITALS: BP 150/84
[2018-03-09] MEDS: MICAFUNGIN 100 MG in SODIUM CHLORIDE 0.9% 100 ML IV SCH (19:48)
[2018-03-09] MEDS: ATORVASTATIN 40 MG TABLET PO SCH (20:25)
[2018-03-09] MEDS: TRAZODONE 50MG TABLET PO SCH (20:25)
[2018-03-09] MEDS: RISPERIDONE 0.5 MG TABLET PO SCH (20:25)
[2018-03-10] MEDS: OXYcodone IR 5MG TABLET PO PRN (00:08)
[2018-03-10 01:59] VITALS: BP 142/78
[2018-03-10] MEDS: CIPROFLOXACIN OPHTH SOLN 0.3%, 5ML EACHEYE SCH ×2 (03:25→08:34)
[2018-03-10] MEDS: HEPARIN 5,000 UNITS/ML, 1ML SQ SCH (05:08)
[2018-03-10 05:58] LABS: CHLORIDE 105 mmol/L (98-107)
[2018-03-10 06:02] LABS: ANION GAP 8 mmol/L (5-15); BASOPHILS # (AUTO) 0.03 x10^3/uL (0-0.1); BASOPHILS % (AUTO) 0 % (0-1); CALCIUM 9.1 mg/dL (8.5-10.1); CREATININE 0.67 mg/dL (0.55-1.02); EOSINOPHILS # (AUTO) 0.34 x10^3/uL (0-0.4); EOSINOPHILS % (AUTO) 4 % (1-7); LYMPHOCYTES # (AUTO) 3.05 x10^3/uL (1-3.4); LYMPHOCYTES % (AUTO) 32 % (22-44); MD NO; MEAN CORPUSCULAR HEMOGLOBIN 30.5 pg (27.0-34.8); MEAN CORPUSCULAR HGB CONC 33.4 g/dL (32.4-35.8); MEAN CORPUSCULAR VOLUME 91.4 fL (80-100); MEAN PLATELET VOLUME 8.1 fL (7.4-10.4); MONOCYTES # (AUTO) 0.86 x10^3/uL (0.2-0.8); MONOCYTES % (AUTO) 9 % (2-9); NEUTROPHILS # (AUTO) 5.27 x10^3/uL (1.8-6.8); NEUTROPHILS % (AUTO) 55 % (42-75); PLATELET COUNT 294 x10^3/uL (130-400); RED BLOOD COUNT 3.14 x10^6/uL (3.82-5.3); RED CELL DISTRIBUTION WIDTH 14.3 % (9.6-15.2)
[2018-03-10 06:39] VITALS: BP 139/80
[2018-03-10] MEDS ORDERED: MAGNESIUM SULFATE PMX 4GM/100M 100 ML IV ONE (07:00)
[2018-03-10] MEDS ORDERED: FLUCONAZOLE 200 MG TABLET PO SCH (07:00)
[2018-03-10] MEDS: MONTELUKAST 10 MG TABLET PO SCH (08:32)
[2018-03-10] MEDS: ASPIRIN 81 MG TABLET EC PO SCH (08:32)
[2018-03-10] MEDS: CHOLECALCIFEROL 1,000 UNIT TABLET PO SCH (08:32)
[2018-03-10] MEDS: SERTRALINE 100MG TABLET PO SCH (08:32)
[2018-03-10] MEDS: GABAPENTIN 300 MG CAPSULE PO SCH (08:32)
[2018-03-10] MEDS: INSULIN LISPRO 100 UNITS/ML, PEN SQ-INSULIN SCH (08:33)
[2018-03-10] MEDS: LATANOPROST OPHTH 0.005%, 2.5ML EACHEYE SCH (08:34)
[2018-03-10] MEDS: BUDESONIDE 0.5 MG/2 ML INHA NPPB SCH (09:00)
[2018-03-10] MEDS: IPRATROPIUM 0.5 MG/2.5 ML INHA NPPB SCH (09:00)
[2018-03-10] MEDS ORDERED: FLUC200T PO (10:26)
== END 2018-03-10 12:00 | disposition home or self-care (01) | DRG 871 ==
LOC: ED 15:37 → EDIP 16:23 → CCU 19:58 → 3NE 03-06 14:40 → DCLOUNGE 03-10 11:45
PROVIDERS: ADMIT Internal Medicine; ATTEND Internal Medicine
PROC: 0T9B70Z Drainage of Bladder with Drainage Device, Via Natural or Artificial Opening (ICD-10-PCS; principal; 2018-03-04)
PROC: 02HV33Z Insertion of Infusion Device into Superior Vena Cava, Percutaneous Approach (ICD-10-PCS; 2018-03-04)
PROC: B548ZZA Ultrasonography of Superior Vena Cava, Guidance (ICD-10-PCS; 2018-03-04)
DX: A41.9 Sepsis, unspecified organism (principal); E43 Unspecified severe protein-calorie malnutrition; N17.0 Acute kidney failure with tubular necrosis; R65.21 Severe sepsis with septic shock; G93.41 Metabolic encephalopathy; K85.90 Acute pancreatitis without necrosis or infection, unspecified; E11.65 Type 2 diabetes mellitus with hyperglycemia; D63.8 Anemia in other chronic diseases classified elsewhere; E87.1 Hypo-osmolality and hyponatremia; B37.49 Other urogenital candidiasis; E78.5 Hyperlipidemia, unspecified; E83.42 Hypomagnesemia; F17.210 Nicotine dependence, cigarettes, uncomplicated; G47.33 Obstructive sleep apnea (adult) (pediatric); H10.9 Unspecified conjunctivitis; H40.9 Unspecified glaucoma; I07.1 Rheumatic tricuspid insufficiency; I10 Essential (primary) hypertension; J30.2 Other seasonal allergic rhinitis; J44.9 Chronic obstructive pulmonary disease, unspecified; K21.9 Gastro-esophageal reflux disease without esophagitis; M06.9 Rheumatoid arthritis, unspecified; R32 Unspecified urinary incontinence; Z87.440 Personal history of urinary (tract) infections; Z68.23 Body mass index [BMI] 23.0-23.9, adult
CPT/HCPCS: 36415; 36556; 71045; 74176; 80048; 80053; 81001; 82533; 82962; 83036; 83605; 83690; 83735; 84100; 84443; 84484; 85025; 85610; 87040; 87081; 87086; 87106; 87186; 87400; 93005; 93306; 94640; 96361; 96365; 96366; 96368; J0696; J1644; J2248; J2543; J3370; J7613; J7626; J7644; 92523-GN; J1815; J3475; J7030; J7040; J7050

== ENCOUNTER 2018-06-16 11:42 | Emergency (ER) | payer MEDICARE, MEDICAID ==
[~2018-06-16] VITALS: Ht 160 cm; Wt 49.7 kg
[~2018-06-16 11:42] MED LIST changes: +BUSP10TA PO; +FLUC200T PO; -METF500T4 PO; +METF500T5 PO; +TRAZ-136 PO; -TRAZ50TA18 PO
[2018-06-16 11:53] VITALS: BP 133/79
[2018-06-16] MEDS ORDERED: HYDROcodone/APAP 5/325 TABLET ONE (12:08)
[2018-06-16] MEDS ORDERED: HYDROcodone/APAP 5/325 TABLET PO ONE (12:30)
== END 2018-06-16 13:33 | disposition home or self-care (01) ==
LOC: ED 13:28
DX: R07.89 Other chest pain (principal); J44.1 Chronic obstructive pulmonary disease with (acute) exacerbation; E11.9 Type 2 diabetes mellitus without complications; G89.29 Other chronic pain; E78.5 Hyperlipidemia, unspecified; F17.200 Nicotine dependence, unspecified, uncomplicated; Z90.49 Acquired absence of other specified parts of digestive tract; Z88.1 Allergy status to other antibiotic agents; Z88.6 Allergy status to analgesic agent
CPT/HCPCS: 99284

== ENCOUNTER 2018-07-16 17:25 | Emergency (ER) | payer MEDICARE, MEDICAID ==
[~2018-07-16] VITALS: Ht 160 cm; Wt 47.5 kg
[~2018-07-16 17:25] MED LIST changes: -AMLO10TA2 PO; +AMLO10TA6 PO; +METF500T17 PO; -METF500T5 PO
[2018-07-16 17:27] VITALS: BP 136/65
[2018-07-16 18:30] LABS: MICROSCOPIC AUTO
[2018-07-16 18:33] LABS: CULTURE INDICATED? YES
== END 2018-07-16 19:26 | disposition home or self-care (01) ==
LOC: ED 18:11
DX: M47.26 Other spondylosis with radiculopathy, lumbar region (principal); M51.16 Intervertebral disc disorders with radiculopathy, lumbar region; E11.9 Type 2 diabetes mellitus without complications; I10 Essential (primary) hypertension; J44.9 Chronic obstructive pulmonary disease, unspecified; E78.5 Hyperlipidemia, unspecified; G89.29 Other chronic pain; R30.0 Dysuria; L29.9 Pruritus, unspecified; Z90.49 Acquired absence of other specified parts of digestive tract
CPT/HCPCS: 72110; 81001; 87086; 93005; 99285

== ENCOUNTER 2018-10-09 07:38 | Emergency (ER) | payer MEDICARE, MEDICAID ==
[~2018-10-09] VITALS: Ht 160 cm; Wt 50.0 kg
[~2018-10-09 07:38] MED LIST changes: -TRAZ-136 PO; +TRAZ50TA66 PO
[2018-10-09 07:43] VITALS: BP 107/68
== END 2018-10-09 08:18 | disposition home or self-care (01) ==
LOC: ED 08:00
DX: B86 Scabies (principal); E78.5 Hyperlipidemia, unspecified; M54.9 Dorsalgia, unspecified; G89.29 Other chronic pain; J44.9 Chronic obstructive pulmonary disease, unspecified; E11.9 Type 2 diabetes mellitus without complications; I10 Essential (primary) hypertension
CPT/HCPCS: 99283

== ENCOUNTER 2018-12-10 10:52 | Emergency (ER) | payer MEDICARE, MEDICAID ==
[~2018-12-10] VITALS: Ht 160 cm; Wt 50.0 kg
[~2018-12-10 10:52] MED LIST changes: -AMLO10TA6 PO; +AMLO10TA8 PO; +SERT100T32 PO; -SERT100T5 PO
--- NOTE | 2018-12-10 12:12 | NUR ---
73 Y/O FEMALE PRESENTS TO ED WITH C/O BED BUGS. "I'VE HAD BED BUGS AT MY PLACE FOR ABOUT 8 MONTHS. I'VE ALSO HAD A COUGH AND RUNNY NOSE FOR ABOUT 4 DAYS." NO ACUTE DISTRESS NOTED. NO C/O N/V/D, TRAUMA, SYNCOPE, SOB. PT PLACED ON CONT PULSE OX,NIBP, CYLINDER LOADER. LAB BEDSIDE.
[2018-12-10 12:28] LABS: BASOPHILS # (AUTO) 0.02 x10^3/uL (0-0.1); BASOPHILS % (AUTO) 0 % (0-1); EOSINOPHILS # (AUTO) 0.08 x10^3/uL (0-0.4); EOSINOPHILS % (AUTO) 1 % (1-7); LYMPHOCYTES # (AUTO) 1.88 x10^3/uL (1-3.4); LYMPHOCYTES % (AUTO) 31 % (22-44); MD NO; MEAN CORPUSCULAR HEMOGLOBIN 22.3 pg (27.0-34.8); MEAN CORPUSCULAR HGB CONC 30.8 g/dL (32.4-35.8); MEAN CORPUSCULAR VOLUME 72.3 fL (80-100); MEAN PLATELET VOLUME 7.8 fL (7.4-10.4); MONOCYTES # (AUTO) 0.43 x10^3/uL (0.2-0.8); MONOCYTES % (AUTO) 7 % (2-9); NEUTROPHILS # (AUTO) 3.72 x10^3/uL (1.8-6.8); NEUTROPHILS % (AUTO) 61 % (42-75); PLATELET COUNT 421 x10^3/uL (130-400); RED BLOOD COUNT 3.79 x10^6/uL (3.82-5.3); RED CELL DISTRIBUTION WIDTH 16.9 % (9.6-15.2)
[2018-12-10 12:36] LABS: ALBUMIN 3.7 g/dL (3.4-5.0); ANION GAP 4 mmol/L (5-15); CHLORIDE 106 mmol/L (98-107); CREATININE 0.75 mg/dL (0.55-1.02)
[2018-12-10 12:40] LABS: TROPONIN I < 0.015 ng/mL (0.000-0.045)
--- NOTE | 2018-12-10 13:38 | NUR ---
LATE ENTRY FOR 1310 RECEIVED BEDSIDE REPORT FROM TASK RN.
[2018-12-10 13:42] VITALS: BP 158/63
--- NOTE | 2018-12-10 13:42 | NUR ---
PT RESTING ON GURNEY. NO ACUTE DISTRESS NOTED. NO NEEDS REQUESTED AT THIS TIME. VSS.
--- NOTE | 2018-12-10 15:55 | NUR ---
Patient/Caregiver given discharge instructions and they have confirmed that they understand the instructions. Patient ambulatory with steady gait. PT LEFT WITH ALL PERSONAL BELONGINGS.
== END 2018-12-10 16:12 | disposition home or self-care (01) ==
LOC: ED 12:44
DX: R55 Syncope and collapse (principal); B88.9 Infestation, unspecified; I10 Essential (primary) hypertension; J44.9 Chronic obstructive pulmonary disease, unspecified; E11.9 Type 2 diabetes mellitus without complications; E78.5 Hyperlipidemia, unspecified; Z90.49 Acquired absence of other specified parts of digestive tract; Z72.9 Problem related to lifestyle, unspecified; Z87.19 Personal history of other diseases of the digestive system
CPT/HCPCS: 36415; 71045; 80048; 82040; 84484; 85025; 93005; 99284

== ENCOUNTER → 2019-02-06 | Outpatient (CLI) | payer MEDICARE, MEDICAID | END | disposition home or self-care (01) | LOC: CFH 09:13 | PROVIDERS: ATTEND Nurse Practitioner Family | DX: I31.3 Pericardial effusion (noninflammatory) (principal); J43.9 Emphysema, unspecified | CPT/HCPCS: 71250 ==

== ENCOUNTER 2019-02-18 13:36 | Emergency (ER) | payer MEDICARE, MEDICAID ==
[~2019-02-18] VITALS: Ht 160 cm; Wt 52.5 kg
[2019-02-18] MEDS ORDERED: ASPIRIN 81 MG TABLET CHEW PO ONE (14:00)
[2019-02-18] MEDS ORDERED: MAALOX/HYOSCYAMINE/LIDOCAINE 45 ML BTL ONE (14:07)
[2019-02-18] MEDS ORDERED: ASPIRIN 81 MG TABLET CHEW ONE (14:07)
--- NOTE | 2019-02-18 14:17 | NUR ---
B/P, SPO2, 5LEAD IN PLACE
[2019-02-18] MEDS ORDERED: MAALOX/HYOSCYAMINE/LIDOCAINE 45 ML BTL PO ONE (14:30)
[2019-02-18 14:32] LABS: ALBUMIN 3.3 g/dL (3.4-5.0); ANION GAP 7 mmol/L (5-15); CALCIUM 8.7 mg/dL (8.5-10.1); CHLORIDE 110 mmol/L (98-107)
[2019-02-18 14:37] LABS: CREATININE 0.71 mg/dL (0.55-1.02); TROPONIN I < 0.015 ng/mL (0.000-0.045)
[2019-02-18 14:41] LABS: BASOPHILS # (AUTO) 0.01 x10^3/uL (0-0.1); BASOPHILS % (AUTO) 0 % (0-1); EOSINOPHILS # (AUTO) 0.13 x10^3/uL (0-0.4); EOSINOPHILS % (AUTO) 2 % (1-7); LYMPHOCYTES # (AUTO) 2.77 x10^3/uL (1-3.4); LYMPHOCYTES % (AUTO) 35 % (22-44); MD NO; MEAN CORPUSCULAR HEMOGLOBIN 18.1 pg (27.0-34.8); MEAN CORPUSCULAR HGB CONC 30.3 g/dL (32.4-35.8); MEAN CORPUSCULAR VOLUME 59.8 fL (80-100); MEAN PLATELET VOLUME 8.3 fL (7.4-10.4); MONOCYTES # (AUTO) 0.48 x10^3/uL (0.2-0.8); MONOCYTES % (AUTO) 6 % (2-9); NEUTROPHILS # (AUTO) 4.63 x10^3/uL (1.8-6.8); NEUTROPHILS % (AUTO) 58 % (42-75); PLATELET COUNT 346 x10^3/uL (130-400)
[2019-02-18 15:00] LABS: CULTURE INDICATED? YES; MICROSCOPIC INDICATED
[2019-02-18 15:39] VITALS: BP 118/48
== END 2019-02-18 15:46 | disposition home or self-care (01) ==
LOC: ED 15:01
DX: K21.9 Gastro-esophageal reflux disease without esophagitis (principal); N30.00 Acute cystitis without hematuria; I10 Essential (primary) hypertension; I11.9 Hypertensive heart disease without heart failure; E78.5 Hyperlipidemia, unspecified; J44.9 Chronic obstructive pulmonary disease, unspecified; G89.29 Other chronic pain; F17.200 Nicotine dependence, unspecified, uncomplicated; Z90.49 Acquired absence of other specified parts of digestive tract
CPT/HCPCS: 36415; 71045; 80048; 81001; 82040; 83880; 84484; 85025; 87077; 87086; 87186; 93005; 99284

== ENCOUNTER 2019-03-14 10:03 | Inpatient (IN) | payer MEDICARE, MEDICAID ==
[~2019-03-14] VITALS: Ht 160 cm; Wt 57.5 kg
[2019-03-14] MEDS ORDERED: HTN MED (10:19)
--- NOTE | 2019-03-14 10:23 | NUR ---
PT BIB [facility] FOR NEAR SYNCOPAL EPISODE TODAY AT 0900 WITH ASSOCIATED EPIGASTRIC CP AND SOB. PT ALSO REPORTS DECRESED APPETITE SINCE NOVEMBER. PT CONNECTED TO ALL MONITORS. VSS. EDMD PRESENT FOR ASSESSMENT. AWAITING ORDERS. Addendum: 03/14/19 at 1025 by [email or web address] PT BIB [facility] FOR NEAR SYNCOPAL EPISODE TODAY AT 0900 WITH ASSOCIATED EPIGASTRIC CP AND SOB. PT DENIES LOC AND WAS ABLE TO LAY DOWN UPON FEELING DIZZY. PT ALSO REPORTS ABP PAIN AND DECRESED APPETITE SINCE NOVEMBER. LAST MEAL WAS A FEW BITES OF A BREAKFAST SANDWICH YESTERDAY MORNING. FSBG 200 WELL SITE DRILLING ENGINEER PER EMS. PT CONNECTED TO ALL MONITORS. VSS. EDMD PRESENT FOR ASSESSMENT. AWAITING ORDERS.
[2019-03-14] MEDS ORDERED: SODIUM CHLORIDE FLUSH 10ML SYR IVF ONE (10:30)
--- NOTE | 2019-03-14 10:38 | NUR ---
IV ESTABLISHED AND LABS DRAWN.
--- NOTE | 2019-03-14 10:47 | NUR ---
UA COLLECTED AND SENT.
[2019-03-14] MEDS ORDERED: SODIUM CHLORIDE 0.9% 1,000ML IVBOLUS ONE (11:00)
[2019-03-14 11:03] LABS: MEAN CORPUSCULAR VOLUME 60.1 fL (80-100); MEAN PLATELET VOLUME 8.8 fL (7.4-10.4); PLATELET COUNT 387 x10^3/uL (130-400); RED BLOOD COUNT 4.97 x10^6/uL (3.82-5.3); RED CELL DISTRIBUTION WIDTH 20.7 % (9.6-15.2)
[2019-03-14 11:06] LABS: ALANINE AMINOTRANSFERASE 19 U/L (12-78); ALBUMIN 3.7 g/dL (3.4-5.0); ANION GAP 7 mmol/L (5-15); CALCIUM 8.7 mg/dL (8.5-10.1); CHLORIDE 108 mmol/L (98-107); CREATININE 0.76 mg/dL (0.55-1.02)
[2019-03-14 11:10] LABS: ALKALINE PHOSPHATASE 102 U/L (45-117); BILIRUBIN,TOTAL 0.4 mg/dL (0.2-1.0); TOTAL PROTEIN 7.1 g/dL (6.4-8.2); TROPONIN I < 0.015 ng/mL (0.000-0.045)
[2019-03-14 11:16] LABS: MICROSCOPIC NOT IND
[2019-03-14 11:18] LABS: CULTURE INDICATED? NO
[2019-03-14 11:34] LABS: MD YES
--- NOTE | 2019-03-14 11:35 | NUR ---
PT RESTING IN ROOM. VSS. NO NEEDS EXPESSED. AWAITING LAB RESUTLS. CALL LIGHT WITHIN REACH.
[2019-03-14 11:36] LABS: BASOS#(MANUAL) 0.05 x10^3/uL (0-0.1); BASOS% (MANUAL) 1 % (0-1); EOS#(MANUAL) 0.11 x10^3/uL (0.0-0.4); EOS% (MANUAL) 2 % (1-7); LYMPH#(MANUAL) 0.76 x10^3/uL (1-3.4); LYMPHS% (MANUAL) 14 % (22-44); MONOS#(MANUAL) 0.38 x10^3/uL (0.3-2.7); MONOS% (MANUAL) 7 % (2-9); REACTIVE LYMPHS # (MANUAL) 0.05 x10^3/uL (0-0); REACTIVE LYMPHS % (MANUAL) 1 % (0-0); SEG#(MANUAL) 4.05 x10^3/uL (1.8-6.8); SEGS% (MANUAL) 75 % (42-75)
[2019-03-14 11:37] LABS: ANISOCYTOSIS 2+; HYPOCHROMIA 2+; MICROCYTOSIS 2+; OVALOCYTES 1+; STOMATOCYTES 1+; TARGET CELLS 1+
[2019-03-14 11:38] LABS: <PLATELET ESTIMATE> ADEQUATE; <PLT MORPHOLOGY> NORMAL PLT MORPH
--- NOTE | 2019-03-14 12:20 | NUR ---
pt resting in room. vss. no needs expressed. call light within reach. rad called regarding cxr. xr tech states someone should be on the way to complete cxr at this time. awaiting rad.
--- NOTE | 2019-03-14 12:35 | NUR ---
xr to iron.
[2019-03-14] MEDS ORDERED: ENOXAPARIN 40 MG/0.4 ML ONE (13:38)
[2019-03-14] MEDS ORDERED: NS + 20MEQ KCL 1,000 ML IV ONE (13:38)
[2019-03-14] MEDS: NS + 20MEQ KCL 1,000 ML IV SCH (13:49)
[2019-03-14] MEDS: ENOXAPARIN 40 MG/0.4 ML SQ SCH (13:49)
--- NOTE | 2019-03-14 13:52 | NUR ---
pt resting in room. vss. no needs expressed. call light within reach. pt medicated per dec. floor medications started. admit orders received. awaiting room assignment.
[2019-03-14] MEDS ORDERED: DEXTROSE 4 GM TAB.CHEW PO PRN (14:00)
[2019-03-14] MEDS ORDERED: NITROGLYCERIN 0.4 MG/SPRAY SL PRN (14:00)
[2019-03-14] MEDS ORDERED: hydrALAzine 20 MG/ML, 1ML IVPush PRN (14:00)
[2019-03-14] MEDS ORDERED: ONDANSETRON 2MG/ML, 2ML IVPush PRN (14:00)
[2019-03-14] MEDS ORDERED: GLUCAGON 1 MG IM PRN (14:00)
[2019-03-14] MEDS ORDERED: NITROGLYCERIN 0.4 MG BOTTLE (25 TABS) SL PRN (14:00)
[2019-03-14] MEDS ORDERED: GABAPENTIN 300 MG CAPSULE PO PRN (14:00)
[2019-03-14] MEDS ORDERED: DEXTROSE 50%, 50ML SYRINGE IVPush PRN (14:00)
[2019-03-14 15:30] VITALS: BP 158/71
[2019-03-14] MEDS: INSULIN LISPRO 100 UNITS/ML, PEN SQ-INSULIN SCH ×2 (16:00→21:01)
[2019-03-14] MEDS ORDERED: OMEPRAZOLE 20 MG CAPSULE.DR ONE (16:11)
[2019-03-14] MEDS: OMEPRAZOLE 20 MG CAPSULE.DR PO SCH (16:15)
[2019-03-14] MEDS: GABAPENTIN 300 MG CAPSULE PO SCH ×2 (16:15→21:00)
[2019-03-14] MEDS: CARVEDILOL 12.5 MG TABLET PO SCH (16:16)
[2019-03-14 17:00] VITALS: BP 133/66
[2019-03-14] MEDS: IPRATROPIUM 0.5 MG/2.5 ML INHA NPPB SCH ×2 (17:00→21:46)
[2019-03-14 18:37] LABS: TROPONIN I < 0.015 ng/mL (0.000-0.045)
[2019-03-14 18:55] LABS: CLOSTRIDIUM DIFFICILE ANTIGEN NEGATIVE; CLOSTRIDIUM DIFFICILE TOXIN NEGATIVE (Negative)
[2019-03-14 19:07] VITALS: BP 111/60
[2019-03-14 19:09] VITALS: BP 87/48
[2019-03-14 19:10] VITALS: BP 88/50
[2019-03-14] MEDS: RISPERIDONE 0.5 MG TABLET PO SCH (21:00)
[2019-03-14] MEDS: BUSPIRONE 10 MG TABLET PO SCH (21:00)
[2019-03-14] MEDS: ATORVASTATIN 40 MG TABLET PO SCH (21:00)
[2019-03-14] MEDS: SODIUM CHLORIDE FLUSH 10ML SYR IVF SCH (21:01)
[2019-03-14] MEDS: INSULIN GLARGINE 100 UNITS/ML, PEN SQ-INSULIN SCH (21:01)
[2019-03-15 00:25] VITALS: BP 118/62
[2019-03-15 01:16] LABS: TROPONIN I < 0.015 ng/mL (0.000-0.045)
[2019-03-15] MEDS: NS + 20MEQ KCL 1,000 ML IV SCH (04:41)
[2019-03-15 05:35] LABS: MEAN CORPUSCULAR HEMOGLOBIN 17.7 pg (27.0-34.8); MEAN CORPUSCULAR VOLUME 60.3 fL (80-100); MEAN PLATELET VOLUME 8.4 fL (7.4-10.4); PLATELET COUNT 345 x10^3/uL (130-400); RED BLOOD COUNT 4.62 x10^6/uL (3.82-5.3); RED CELL DISTRIBUTION WIDTH 21.2 % (9.6-15.2)
[2019-03-15 05:40] LABS: ANION GAP 7 mmol/L (5-15); CHLORIDE 112 mmol/L (98-107)
[2019-03-15 05:54] LABS: CALCIUM 8.7 mg/dL (8.5-10.1); CHOL/HDL RATIO 3.8; CHOLESTEROL, TOTAL 173 mg/dL (140-239); CREATININE 0.74 mg/dL (0.55-1.02); HDL CHOL % 27 % (28-40); HDL CHOLESTEROL (DIRECT) 46 mg/dL (40-60); LDL CHOLESTEROL,CALCULATED 107 mg/dL (54-169); LDL/HDL RATIO 2.3 (0.5-3.0); TRIGLYCERIDES 98 mg/dL (50-200); VLDL CHOLESTEROL 20 mg/dL (0-25)
[2019-03-15] MEDS: CARVEDILOL 12.5 MG TABLET PO SCH ×2 (06:04→17:52)
[2019-03-15] MEDS: OMEPRAZOLE 20 MG CAPSULE.DR PO SCH ×2 (06:04→15:53)
[2019-03-15 06:31] LABS: MD YES
[2019-03-15 06:32] LABS: MEAN CORPUSCULAR HGB CONC 29.4 g/dL (32.4-35.8)
[2019-03-15 06:35] LABS: BAND#(MANUAL) 0.12 x10^3/uL; BANDS%(MANUAL) 2 % (0-7); EOS#(MANUAL) 0.12 x10^3/uL (0.0-0.4); EOS% (MANUAL) 2 % (1-7); LYMPH#(MANUAL) 2.48 x10^3/uL (1-3.4); LYMPHS% (MANUAL) 42 % (22-44); MONOS#(MANUAL) 0.24 x10^3/uL (0.3-2.7); MONOS% (MANUAL) 4 % (2-9); SEG#(MANUAL) 2.95 x10^3/uL (1.8-6.8); SEGS% (MANUAL) 50 % (42-75)
[2019-03-15 06:36] LABS: <PLATELET ESTIMATE> ADEQUATE; ANISOCYTOSIS 2+; MICROCYTOSIS 2+
[2019-03-15 06:38] LABS: OVALOCYTES 1+; TARGET CELLS 1+
[2019-03-15 06:48] LABS: LARGE PLATELETS 1+
[2019-03-15 06:49] LABS: POLYCHROMASIA 1+
[2019-03-15 06:50] LABS: HYPOCHROMIA 1+
[2019-03-15] MEDS ORDERED: IPRATROPIUM 0.5 MG/2.5 ML INHA ONE (07:00)
[2019-03-15] MEDS: IPRATROPIUM 0.5 MG/2.5 ML INHA NPPB SCH ×4 (07:12→22:29)
[2019-03-15] MEDS: INSULIN LISPRO 100 UNITS/ML, PEN SQ-INSULIN SCH ×4 (08:09→20:50)
[2019-03-15 08:10] VITALS: BP_SYST 102; BP_SYST 110; BP_SYST 122; BP_DIAS 48; BP_DIAS 67; BP_DIAS 68
[2019-03-15] MEDS: AMLODIPINE 10 MG TAB PO SCH (08:27)
[2019-03-15] MEDS: SERTRALINE 100MG TABLET PO SCH (08:27)
[2019-03-15] MEDS: BUSPIRONE 10 MG TABLET PO SCH ×2 (08:27→20:06)
[2019-03-15] MEDS: ASPIRIN 81 MG TABLET EC PO SCH (08:27)
[2019-03-15] MEDS: SODIUM CHLORIDE FLUSH 10ML SYR IVF SCH ×2 (08:28→20:52)
[2019-03-15] MEDS: GABAPENTIN 300 MG CAPSULE PO SCH ×3 (08:28→20:06)
[2019-03-15] MEDS ORDERED: REGADENOSON 0.4 MG/5 ML SYRINGE ONE (09:01)
[2019-03-15] MEDS: ACETAMINOPHEN 325 MG TABLET PO PRN ×2 (11:32→17:52)
[2019-03-15 13:21] VITALS: BP 115/63
[2019-03-15] MEDS: ENOXAPARIN 40 MG/0.4 ML SQ SCH (14:14)
[2019-03-15 17:50] VITALS: BP 124/70
[2019-03-15 18:43] LABS: HEMOGLOBIN A1C 7.9 % (4.2-6.3)
[2019-03-15 19:44] VITALS: BP 119/58
[2019-03-15] MEDS: CALCIUM CARBONATE 500 MG TAB.CHEW PO PRN (20:05)
[2019-03-15] MEDS: ATORVASTATIN 40 MG TABLET PO SCH (20:06)
[2019-03-15] MEDS: FAMOTIDINE 20 MG TABLET PO SCH (20:06)
[2019-03-15] MEDS: RISPERIDONE 0.5 MG TABLET PO SCH (20:49)
[2019-03-15] MEDS: INSULIN GLARGINE 100 UNITS/ML, PEN SQ-INSULIN SCH (20:50)
[2019-03-16 02:00] VITALS: BP 106/62
[2019-03-16] MEDS: IPRATROPIUM 0.5 MG/2.5 ML INHA NPPB SCH ×4 (02:13→19:51)
[2019-03-16 05:19] VITALS: BP 123/65
[2019-03-16] MEDS: OMEPRAZOLE 20 MG CAPSULE.DR PO SCH ×2 (05:21→16:20)
[2019-03-16] MEDS: CARVEDILOL 12.5 MG TABLET PO SCH ×2 (05:21→18:13)
[2019-03-16 05:41] LABS: MEAN CORPUSCULAR HEMOGLOBIN 17.2 pg (27.0-34.8); MEAN CORPUSCULAR VOLUME 60.9 fL (80-100); MEAN PLATELET VOLUME 8.3 fL (7.4-10.4); PLATELET COUNT 302 x10^3/uL (130-400); RED BLOOD COUNT 4.29 x10^6/uL (3.82-5.3); RED CELL DISTRIBUTION WIDTH 21.5 % (9.6-15.2)
[2019-03-16 05:49] LABS: MEAN CORPUSCULAR HGB CONC 28.2 g/dL (32.4-35.8)
[2019-03-16 06:05] LABS: BASOPHILS # (AUTO) 0.02 x10^3/uL (0-0.1); BASOPHILS % (AUTO) 0 % (0-1); EOSINOPHILS # (AUTO) 0.23 x10^3/uL (0-0.4); EOSINOPHILS % (AUTO) 4 % (1-7); LYMPHOCYTES # (AUTO) 2.18 x10^3/uL (1-3.4); LYMPHOCYTES % (AUTO) 38 % (22-44); MD MORPH REVIEW ONLY; MONOCYTES # (AUTO) 0.49 x10^3/uL (0.2-0.8); MONOCYTES % (AUTO) 9 % (2-9); NEUTROPHILS # (AUTO) 2.79 x10^3/uL (1.8-6.8); NEUTROPHILS % (AUTO) 49 % (42-75)
[2019-03-16 06:06] LABS: <PLATELET ESTIMATE> ADEQUATE; <PLT MORPHOLOGY> NORMAL PLT MORPH; ANISOCYTOSIS 2+; HYPOCHROMIA 2+; MICROCYTOSIS 2+; OVALOCYTES 1+; POLYCHROMASIA 1+; TARGET CELLS 1+
[2019-03-16] MEDS: INSULIN LISPRO 100 UNITS/ML, PEN SQ-INSULIN SCH ×4 (07:00→20:40)
[2019-03-16] MEDS: AMLODIPINE 10 MG TAB PO SCH (08:13)
[2019-03-16] MEDS: ASPIRIN 81 MG TABLET EC PO SCH (08:14)
[2019-03-16] MEDS: GABAPENTIN 300 MG CAPSULE PO SCH ×3 (08:14→20:41)
[2019-03-16] MEDS: SERTRALINE 100MG TABLET PO SCH (08:14)
[2019-03-16] MEDS: SODIUM CHLORIDE FLUSH 10ML SYR IVF SCH ×2 (08:26→20:39)
[2019-03-16] MEDS: ACETAMINOPHEN 325 MG TABLET PO PRN ×3 (08:27→22:03)
[2019-03-16] MEDS: BUSPIRONE 10 MG TABLET PO SCH ×2 (08:27→20:41)
[2019-03-16 08:52] VITALS: BP 131/71
[2019-03-16] MEDS: IRON SUCROSE COMPLEX 100MG/5ML IV SCH (10:03)
[2019-03-16] MEDS ORDERED: MAALOX/HYOSCYAMINE/LIDOCAINE 45 ML BTL PO ONE (10:30)
[2019-03-16] MEDS ORDERED: METF500T17 PO (11:13)
[2019-03-16] MEDS ORDERED: DULA1.5P INJ (11:13)
[2019-03-16 13:11] VITALS: BP 89/59
[2019-03-16 15:40] LABS: INTERNATIONAL NORMALIZED RATIO 0.97 (0.93-1.1); PROTHROMBIN TIME 10.2 Seconds (9.6-11.5)
[2019-03-16 18:12] VITALS: BP 127/75
[2019-03-16 19:35] VITALS: BP 118/72
[2019-03-16] MEDS: ATORVASTATIN 40 MG TABLET PO SCH (20:40)
[2019-03-16] MEDS: INSULIN GLARGINE 100 UNITS/ML, PEN SQ-INSULIN SCH (20:40)
[2019-03-16] MEDS: TRAZODONE 50MG TABLET PO PRN (20:41)
[2019-03-16] MEDS: FAMOTIDINE 20 MG TABLET PO SCH (20:41)
[2019-03-16] MEDS: RISPERIDONE 0.5 MG TABLET PO SCH (20:41)
[2019-03-16] MEDS: CALCIUM CARBONATE 500 MG TAB.CHEW PO PRN (20:41)
[2019-03-17 01:06] VITALS: BP 126/55
[2019-03-17 05:16] LABS: ANISOCYTOSIS 2+; BASOPHILS # (AUTO) 0.03 x10^3/uL (0-0.1); BASOPHILS % (AUTO) 1 % (0-1); EOSINOPHILS # (AUTO) 0.16 x10^3/uL (0-0.4); EOSINOPHILS % (AUTO) 3 % (1-7); HYPOCHROMIA 2+; LYMPHOCYTES # (AUTO) 1.68 x10^3/uL (1-3.4); LYMPHOCYTES % (AUTO) 35 % (22-44); MD MORPH REVIEW ONLY; MEAN PLATELET VOLUME 8.6 fL (7.4-10.4); MICROCYTOSIS 2+; MONOCYTES # (AUTO) 0.47 x10^3/uL (0.2-0.8); MONOCYTES % (AUTO) 10 % (2-9); NEUTROPHILS # (AUTO) 2.53 x10^3/uL (1.8-6.8); NEUTROPHILS % (AUTO) 52 % (42-75); OVALOCYTES 1+; PLATELET COUNT 293 x10^3/uL (130-400); POLYCHROMASIA 1+; RED BLOOD COUNT 4.04 x10^6/uL (3.82-5.3); RED CELL DISTRIBUTION WIDTH 21.2 % (9.6-15.2); TARGET CELLS 1+; TEAR DROPS 1+
[2019-03-17 05:17] LABS: <PLATELET ESTIMATE> ADEQUATE; <PLT MORPHOLOGY> NORMAL PLT MORPH
[2019-03-17 05:59] VITALS: BP 97/58
[2019-03-17] MEDS: CARVEDILOL 12.5 MG TABLET PO SCH (06:00)
[2019-03-17] MEDS: OMEPRAZOLE 20 MG CAPSULE.DR PO SCH (06:01)
[2019-03-17] MEDS: INSULIN LISPRO 100 UNITS/ML, PEN SQ-INSULIN SCH ×4 (07:00→21:04)
[2019-03-17] MEDS: IPRATROPIUM 0.5 MG/2.5 ML INHA NPPB SCH ×4 (07:01→18:48)
[2019-03-17] MEDS: GABAPENTIN 300 MG CAPSULE PO SCH ×3 (07:54→21:02)
[2019-03-17] MEDS: BUSPIRONE 10 MG TABLET PO SCH ×2 (07:55→21:02)
[2019-03-17] MEDS: IRON SUCROSE COMPLEX 100MG/5ML IV SCH (07:55)
[2019-03-17] MEDS: SERTRALINE 100MG TABLET PO SCH (07:55)
[2019-03-17] MEDS: AMLODIPINE 10 MG TAB PO SCH (07:55)
[2019-03-17] MEDS: SODIUM CHLORIDE FLUSH 10ML SYR IVF SCH ×2 (07:55→21:00)
[2019-03-17 08:01] VITALS: BP 133/56
[2019-03-17] MEDS: ACETAMINOPHEN 325 MG TABLET PO PRN ×3 (09:06→21:02)
[2019-03-17] MEDS: CALCIUM CARBONATE 500 MG TAB.CHEW PO PRN ×2 (09:06→16:29)
[2019-03-17] MEDS ORDERED: POLYETHYLENE GLYCOL 17 GM PACKET PO PRN (09:30)
[2019-03-17] MEDS ORDERED: PANTOPRAZOLE 80 MG in SODIUM CHLORIDE 0.9% 50 ML IV ONE (10:30)
[2019-03-17] MEDS: SENNA/DOCUSATE TABLET PO SCH (11:59)
[2019-03-17] MEDS: FLUTICASONE NASAL SPRAY 16GM NAS SCH ×2 (11:59→21:01)
[2019-03-17] MEDS: SODIUM CHLORIDE NASAL SPRAY 45ML BOTTLE NAS SCH ×2 (12:00→21:01)
[2019-03-17] MEDS: D5%-0.45% NACL 1,000 ML IV SCH ×2 (12:34→21:23)
[2019-03-17] MEDS: PANTOPRAZOLE 80 MG in SODIUM CHLORIDE 0.9% 100 ML IV SCH (12:35)
[2019-03-17 14:00] VITALS: BP 111/48
[2019-03-17] MEDS: OXYcodone IR 5MG TABLET PO PRN (17:42)
[2019-03-17 19:34] VITALS: BP 108/57
[2019-03-17] MEDS: INSULIN GLARGINE 100 UNITS/ML, PEN SQ-INSULIN SCH (21:00)
[2019-03-17] MEDS: RISPERIDONE 0.5 MG TABLET PO SCH (21:02)
[2019-03-17] MEDS: ATORVASTATIN 40 MG TABLET PO SCH (21:02)
[2019-03-17] MEDS: TRAZODONE 50MG TABLET PO PRN (21:02)
[2019-03-18] MEDS: PANTOPRAZOLE 80 MG in SODIUM CHLORIDE 0.9% 100 ML IV SCH ×2 (00:02→16:34)
[2019-03-18 02:26] VITALS: BP 110/53
[2019-03-18] MEDS: IPRATROPIUM 0.5 MG/2.5 ML INHA NPPB SCH ×4 (03:00→19:31)
[2019-03-18] MEDS: OXYcodone IR 5MG TABLET PO PRN ×2 (05:11→20:29)
[2019-03-18] MEDS: D5%-0.45% NACL 1,000 ML IV SCH ×2 (05:12→13:01)
[2019-03-18] MEDS ORDERED: ALBUTEROL SULFATE 2.5 MG/3 ML NPPB PRN (06:30)
[2019-03-18 07:05] VITALS: BP 115/53
[2019-03-18] MEDS: INSULIN LISPRO 100 UNITS/ML, PEN SQ-INSULIN SCH ×4 (08:24→20:44)
[2019-03-18] MEDS: FLUTICASONE NASAL SPRAY 16GM NAS SCH ×2 (08:25→20:41)
[2019-03-18] MEDS: SODIUM CHLORIDE NASAL SPRAY 45ML BOTTLE NAS SCH ×2 (08:25→20:41)
[2019-03-18] MEDS: SODIUM CHLORIDE FLUSH 10ML SYR IVF SCH ×2 (08:25→20:28)
[2019-03-18] MEDS: IRON SUCROSE COMPLEX 100MG/5ML IV SCH (08:25)
[2019-03-18 08:43] LABS: MEAN CORPUSCULAR HEMOGLOBIN 17.5 pg (27.0-34.8); MEAN CORPUSCULAR VOLUME 60.5 fL (80-100); MEAN PLATELET VOLUME 7.9 fL (7.4-10.4); PLATELET COUNT 249 x10^3/uL (130-400); RED BLOOD COUNT 4.28 x10^6/uL (3.82-5.3); RED CELL DISTRIBUTION WIDTH 21.3 % (9.6-15.2)
[2019-03-18 08:49] LABS: ALBUMIN 2.7 g/dL (3.4-5.0); ANION GAP 3 mmol/L (5-15); CALCIUM 8.3 mg/dL (8.5-10.1); CHLORIDE 113 mmol/L (98-107); CREATININE 0.68 mg/dL (0.55-1.02)
[2019-03-18] MEDS: GABAPENTIN 300 MG CAPSULE PO SCH ×3 (09:00→20:29)
[2019-03-18] MEDS: SENNA/DOCUSATE TABLET PO SCH (09:00)
[2019-03-18] MEDS: BUSPIRONE 10 MG TABLET PO SCH ×2 (09:00→20:28)
[2019-03-18 09:12] LABS: MEAN CORPUSCULAR HGB CONC 28.9 g/dL (32.4-35.8)
[2019-03-18 09:16] LABS: BASOPHILS # (AUTO) 0.04 x10^3/uL (0-0.1); BASOPHILS % (AUTO) 1 % (0-1); EOSINOPHILS # (AUTO) 0.15 x10^3/uL (0-0.4); EOSINOPHILS % (AUTO) 3 % (1-7); LYMPHOCYTES # (AUTO) 2.33 x10^3/uL (1-3.4); LYMPHOCYTES % (AUTO) 45 % (22-44); MD SCAN; MONOCYTES # (AUTO) 0.52 x10^3/uL (0.2-0.8); MONOCYTES % (AUTO) 10 % (2-9); NEUTROPHILS # (AUTO) 2.18 x10^3/uL (1.8-6.8); NEUTROPHILS % (AUTO) 42 % (42-75)
[2019-03-18 10:23] VITALS: BP 119/52
[2019-03-18 10:25] VITALS: BP 96/43
[2019-03-18 12:26] LABS: OCCULT BLOOD NEGATIVE (NEGATIVE)
[2019-03-18 13:28] VITALS: BP 133/59
[2019-03-18] MEDS ORDERED: PROPOFOL 10 MG/ML, 20ML ONE (13:34)
[2019-03-18] MEDS: SERTRALINE 100MG TABLET PO SCH (16:39)
[2019-03-18 19:43] VITALS: BP 110/51
[2019-03-18] MEDS: ATORVASTATIN 40 MG TABLET PO SCH (20:28)
[2019-03-18] MEDS: RISPERIDONE 0.5 MG TABLET PO SCH (20:29)
[2019-03-18] MEDS: TRAZODONE 50MG TABLET PO PRN (20:30)
[2019-03-18] MEDS: INSULIN GLARGINE 100 UNITS/ML, PEN SQ-INSULIN SCH (20:44)
[2019-03-19] VITALS (11 sets, daily range): BP systolic 83–138; BP diastolic 43–75
[2019-03-19] MEDS: D5%-0.45% NACL 1,000 ML IV SCH ×2 (00:25→08:07)
[2019-03-19] MEDS: PANTOPRAZOLE 80 MG in SODIUM CHLORIDE 0.9% 100 ML IV SCH ×2 (02:19→14:23)
[2019-03-19] MEDS: IPRATROPIUM 0.5 MG/2.5 ML INHA NPPB SCH ×4 (02:21→20:20)
[2019-03-19] MEDS: OXYcodone IR 5MG TABLET PO PRN ×2 (04:43→21:19)
[2019-03-19 05:13] LABS: MEAN CORPUSCULAR HEMOGLOBIN 17.6 pg (27.0-34.8); MEAN CORPUSCULAR VOLUME 61.5 fL (80-100); MEAN PLATELET VOLUME 9.2 fL (7.4-10.4); PLATELET COUNT 272 x10^3/uL (130-400); RED CELL DISTRIBUTION WIDTH 21.5 % (9.6-15.2)
[2019-03-19 05:15] LABS: ALBUMIN 2.6 g/dL (3.4-5.0); ANION GAP 4 mmol/L (5-15); CALCIUM 7.8 mg/dL (8.5-10.1); CHLORIDE 109 mmol/L (98-107)
[2019-03-19 05:17] LABS: MEAN CORPUSCULAR HGB CONC 28.6 g/dL (32.4-35.8)
[2019-03-19 05:21] LABS: ALANINE AMINOTRANSFERASE 11 U/L (12-78); ALKALINE PHOSPHATASE 68 U/L (45-117); BILIRUBIN,TOTAL 0.9 mg/dL (0.2-1.0); CREATININE 0.87 mg/dL (0.55-1.02); TOTAL PROTEIN 5.3 g/dL (6.4-8.2)
[2019-03-19 05:50] LABS: BASOPHILS # (AUTO) 0.01 x10^3/uL (0-0.1); BASOPHILS % (AUTO) 0 % (0-1); EOSINOPHILS # (AUTO) 0.17 x10^3/uL (0-0.4); EOSINOPHILS % (AUTO) 3 % (1-7); LYMPHOCYTES # (AUTO) 2.01 x10^3/uL (1-3.4); LYMPHOCYTES % (AUTO) 33 % (22-44); MD SCAN; MONOCYTES # (AUTO) 0.66 x10^3/uL (0.2-0.8); MONOCYTES % (AUTO) 11 % (2-9); NEUTROPHILS # (AUTO) 3.33 x10^3/uL (1.8-6.8); NEUTROPHILS % (AUTO) 54 % (42-75)
[2019-03-19] MEDS: GABAPENTIN 300 MG CAPSULE PO SCH ×3 (08:08→21:21)
[2019-03-19] MEDS: BUSPIRONE 10 MG TABLET PO SCH ×2 (08:08→21:20)
[2019-03-19] MEDS: SODIUM CHLORIDE FLUSH 10ML SYR IVF SCH ×2 (08:08→21:22)
[2019-03-19] MEDS: IRON SUCROSE COMPLEX 100MG/5ML IV SCH (08:08)
[2019-03-19] MEDS: INSULIN LISPRO 100 UNITS/ML, PEN SQ-INSULIN SCH ×4 (08:08→21:20)
[2019-03-19] MEDS: SODIUM CHLORIDE NASAL SPRAY 45ML BOTTLE NAS SCH ×2 (08:08→21:20)
[2019-03-19] MEDS: ACETAMINOPHEN 325 MG TABLET PO PRN ×2 (08:09→16:54)
[2019-03-19] MEDS: FLUTICASONE NASAL SPRAY 16GM NAS SCH ×2 (08:09→21:20)
[2019-03-19] MEDS: SENNA/DOCUSATE TABLET PO SCH (08:09)
[2019-03-19] MEDS: SERTRALINE 100MG TABLET PO SCH (08:09)
[2019-03-19] MEDS ORDERED: GOLYTELY 4,000ML ORAL.SOL PO ONE (18:00)
[2019-03-19] MEDS: INSULIN GLARGINE 100 UNITS/ML, PEN SQ-INSULIN SCH (21:19)
[2019-03-19] MEDS: ATORVASTATIN 40 MG TABLET PO SCH (21:21)
[2019-03-19] MEDS: RISPERIDONE 0.5 MG TABLET PO SCH (21:21)
[2019-03-20] MEDS: D5%-0.45% NACL 1,000 ML IV SCH ×3 (00:09→20:11)
[2019-03-20 00:15] LABS: OCCULT BLOOD NEGATIVE (NEGATIVE)
[2019-03-20] MEDS: PANTOPRAZOLE 80 MG in SODIUM CHLORIDE 0.9% 100 ML IV SCH ×2 (00:53→14:54)
[2019-03-20 01:25] VITALS: BP 126/72
[2019-03-20 02:13] LABS: OCCULT BLOOD NEGATIVE (NEGATIVE)
[2019-03-20] MEDS: IPRATROPIUM 0.5 MG/2.5 ML INHA NPPB SCH ×4 (03:00→19:40)
[2019-03-20 05:19] LABS: ALBUMIN 2.6 g/dL (3.4-5.0); ANION GAP 5 mmol/L (5-15); CALCIUM 7.9 mg/dL (8.5-10.1); CHLORIDE 113 mmol/L (98-107)
[2019-03-20 05:23] LABS: ALANINE AMINOTRANSFERASE 17 U/L (12-78); ALKALINE PHOSPHATASE 65 U/L (45-117); BILIRUBIN,TOTAL 0.6 mg/dL (0.2-1.0); CREATININE 0.64 mg/dL (0.55-1.02); TOTAL PROTEIN 5.6 g/dL (6.4-8.2)
[2019-03-20 06:19] LABS: MEAN CORPUSCULAR HEMOGLOBIN 20.1 pg (27.0-34.8); MEAN CORPUSCULAR HGB CONC 30.1 g/dL (32.4-35.8); MEAN CORPUSCULAR VOLUME 66.7 fL (80-100); MEAN PLATELET VOLUME 7.9 fL (7.4-10.4); PLATELET COUNT 221 x10^3/uL (130-400); RED BLOOD COUNT 4.42 x10^6/uL (3.82-5.3); RED CELL DISTRIBUTION WIDTH 28.9 % (9.6-15.2)
[2019-03-20 06:23] LABS: ANISOCYTOSIS 2+; BASOPHILS # (AUTO) 0.03 x10^3/uL (0-0.1); BASOPHILS % (AUTO) 0 % (0-1); EOSINOPHILS # (AUTO) 0.22 x10^3/uL (0-0.4); EOSINOPHILS % (AUTO) 3 % (1-7); HYPOCHROMIA 2+; LYMPHOCYTES # (AUTO) 2.13 x10^3/uL (1-3.4); LYMPHOCYTES % (AUTO) 33 % (22-44); MD MORPH REVIEW ONLY; MICROCYTOSIS 2+; MONOCYTES # (AUTO) 0.79 x10^3/uL (0.2-0.8); MONOCYTES % (AUTO) 12 % (2-9); NEUTROPHILS # (AUTO) 3.29 x10^3/uL (1.8-6.8); NEUTROPHILS % (AUTO) 51 % (42-75)
[2019-03-20 06:24] LABS: <PLATELET ESTIMATE> ADEQUATE; <PLT MORPHOLOGY> NORMAL PLT MORPH; POLYCHROMASIA 1+; SPHEROCYTES 1+; TARGET CELLS 1+
[2019-03-20 06:49] VITALS: BP 147/76
[2019-03-20] MEDS: SODIUM CHLORIDE NASAL SPRAY 45ML BOTTLE NAS SCH ×2 (08:27→20:43)
[2019-03-20] MEDS: IRON SUCROSE COMPLEX 100MG/5ML IV SCH (08:27)
[2019-03-20] MEDS: FLUTICASONE NASAL SPRAY 16GM NAS SCH ×2 (08:27→20:43)
[2019-03-20] MEDS: INSULIN LISPRO 100 UNITS/ML, PEN SQ-INSULIN SCH ×4 (08:29→20:42)
[2019-03-20] MEDS: SODIUM CHLORIDE FLUSH 10ML SYR IVF SCH ×2 (08:29→20:49)
[2019-03-20] MEDS: SENNA/DOCUSATE TABLET PO SCH (09:00)
[2019-03-20] MEDS ORDERED: PROPOFOL 10 MG/ML, 20ML ONE (11:48)
[2019-03-20] MEDS ORDERED: FENTANYL PF 250 MCG/5ML ONE (11:48)
[2019-03-20] MEDS ORDERED: OXYcodone 5 MG/5 ML ORAL.SOL UDC PO PRN (12:00)
[2019-03-20] MEDS ORDERED: FENTANYL PF 100 MCG/2ML IV PRN (12:00)
[2019-03-20] MEDS ORDERED: KETOROLAC 30 MG/1 ML IV PRN (12:00)
[2019-03-20] MEDS ORDERED: ONDANSETRON 2MG/ML, 2ML IVPush PRN (12:00)
[2019-03-20] MEDS ORDERED: hydrALAzine 20 MG/ML, 1ML IV PRN (12:00)
[2019-03-20] MEDS ORDERED: LABETALOL 5MG/ML, 20ML IV PRN (12:00)
[2019-03-20] MEDS ORDERED: PROMETHAZINE 25 MG/ML, 1ML IV PRN (12:00)
[2019-03-20] MEDS ORDERED: METOCLOPRAMIDE 5 MG/ML, 2ML IV PRN (12:00)
[2019-03-20] MEDS ORDERED: MEPERIDINE/PF 25MG/0.5ML IVPush PRN (12:00)
[2019-03-20] MEDS ORDERED: ALBUTEROL SULFATE 2.5 MG/3 ML NPPB PRN (12:00)
[2019-03-20] MEDS ORDERED: HYDROmorphone 1 MG/ML, 1ML INJ IV PRN (12:00)
[2019-03-20] MEDS: BUSPIRONE 10 MG TABLET PO SCH ×2 (13:18→20:43)
[2019-03-20] MEDS: SERTRALINE 100MG TABLET PO SCH (13:19)
[2019-03-20] MEDS: GABAPENTIN 300 MG CAPSULE PO SCH ×3 (13:19→20:44)
[2019-03-20 15:32] VITALS: BP 146/63
[2019-03-20] MEDS: OXYcodone IR 5MG TABLET PO PRN (17:33)
[2019-03-20] MEDS ORDERED: RISP0.5T3 PO (18:34)
[2019-03-20] MEDS ORDERED: AMLO-150 PO (18:34)
[2019-03-20] MEDS ORDERED: CHOL400C11 PO (18:34)
[2019-03-20] MEDS ORDERED: ASCO500W4 PO (18:34)
[2019-03-20] MEDS ORDERED: SUCR1TAB PO (18:34)
[2019-03-20] MEDS ORDERED: SERT100T32 PO (18:34)
[2019-03-20] MEDS ORDERED: TIZA4TAB PO (18:34)
[2019-03-20] MEDS ORDERED: CARV-39 PO (18:34)
[2019-03-20] MEDS ORDERED: ATOR40TA78 PO (18:34)
[2019-03-20] MEDS ORDERED: METF10007 PO (18:34)
[2019-03-20] MEDS ORDERED: ONDA4TAB13 SL (18:35)
[2019-03-20 19:24] VITALS: BP 142/61
[2019-03-20] MEDS: ACETAMINOPHEN 325 MG TABLET PO PRN (20:43)
[2019-03-20] MEDS: INSULIN GLARGINE 100 UNITS/ML, PEN SQ-INSULIN SCH (20:43)
[2019-03-20] MEDS: ATORVASTATIN 40 MG TABLET PO SCH (20:44)
[2019-03-20] MEDS: RISPERIDONE 0.5 MG TABLET PO SCH (20:44)
[2019-03-20] MEDS: TRAZODONE 50MG TABLET PO PRN (20:48)
[2019-03-21 01:05] VITALS: BP 107/57
[2019-03-21] MEDS: PANTOPRAZOLE 80 MG in SODIUM CHLORIDE 0.9% 100 ML IV SCH ×2 (01:16→13:45)
[2019-03-21] MEDS: IPRATROPIUM 0.5 MG/2.5 ML INHA NPPB SCH ×5 (03:00→21:00)
[2019-03-21] MEDS: D5%-0.45% NACL 1,000 ML IV SCH (03:45)
[2019-03-21 05:23] LABS: MEAN CORPUSCULAR HEMOGLOBIN 20.6 pg (27.0-34.8); MEAN CORPUSCULAR HGB CONC 30.5 g/dL (32.4-35.8); MEAN CORPUSCULAR VOLUME 67.6 fL (80-100); MEAN PLATELET VOLUME 9.2 fL (7.4-10.4); PLATELET COUNT 239 x10^3/uL (130-400); RED BLOOD COUNT 4.18 x10^6/uL (3.82-5.3); RED CELL DISTRIBUTION WIDTH 30.8 % (9.6-15.2)
[2019-03-21 05:29] LABS: ALBUMIN 2.3 g/dL (3.4-5.0); ANION GAP 3 mmol/L (5-15); CHLORIDE 113 mmol/L (98-107)
[2019-03-21 06:07] LABS: MD MORPH REVIEW ONLY
[2019-03-21 06:08] LABS: BASOPHILS # (AUTO) 0.02 x10^3/uL (0-0.1); BASOPHILS % (AUTO) 0 % (0-1); EOSINOPHILS # (AUTO) 0.21 x10^3/uL (0-0.4); EOSINOPHILS % (AUTO) 3 % (1-7); LYMPHOCYTES # (AUTO) 1.75 x10^3/uL (1-3.4); LYMPHOCYTES % (AUTO) 21 % (22-44); MONOCYTES # (AUTO) 0.67 x10^3/uL (0.2-0.8); MONOCYTES % (AUTO) 8 % (2-9); NEUTROPHILS # (AUTO) 5.59 x10^3/uL (1.8-6.8); NEUTROPHILS % (AUTO) 68 % (42-75)
[2019-03-21 06:09] LABS: ANISOCYTOSIS 2+; HYPOCHROMIA 2+; MICROCYTOSIS 2+
[2019-03-21 06:10] LABS: <PLATELET ESTIMATE> ADEQUATE; <PLT MORPHOLOGY> NORMAL PLT MORPH; POLYCHROMASIA 1+; SPHEROCYTES 1+
[2019-03-21 06:11] LABS: OVALOCYTES 1+
[2019-03-21 06:39] VITALS: BP 134/67
[2019-03-21] MEDS: INSULIN LISPRO 100 UNITS/ML, PEN SQ-INSULIN SCH ×4 (07:30→20:47)
[2019-03-21] MEDS: FLUTICASONE NASAL SPRAY 16GM NAS SCH ×2 (07:31→20:45)
[2019-03-21] MEDS: SERTRALINE 100MG TABLET PO SCH (07:31)
[2019-03-21] MEDS: GABAPENTIN 300 MG CAPSULE PO SCH ×3 (07:31→20:46)
[2019-03-21] MEDS: SODIUM CHLORIDE NASAL SPRAY 45ML BOTTLE NAS SCH ×2 (07:31→20:44)
[2019-03-21] MEDS: BUSPIRONE 10 MG TABLET PO SCH ×2 (07:31→17:42)
[2019-03-21] MEDS: SODIUM CHLORIDE FLUSH 10ML SYR IVF SCH ×2 (07:32→20:47)
[2019-03-21] MEDS: SENNA/DOCUSATE TABLET PO SCH (07:32)
[2019-03-21] MEDS: IRON SUCROSE COMPLEX 100MG/5ML IV SCH (07:32)
[2019-03-21] MEDS: OXYcodone IR 5MG TABLET PO PRN (10:48)
[2019-03-21 10:49] LABS: MICROSCOPIC INDICATED
[2019-03-21 10:50] LABS: CULTURE INDICATED? YES
[2019-03-21 12:40] VITALS: BP 133/68
[2019-03-21] MEDS: CEFTRIAXONE PMX 1GM/50ML 50 ML IV SCH (12:52)
[2019-03-21] MEDS: ACETAMINOPHEN 325 MG TABLET PO PRN (15:01)
[2019-03-21] MEDS: MECLIZINE 12.5 MG TABLET PO PRN (15:03)
[2019-03-21] MEDS: PANTOPRAZOLE 20MG TABLET PO SCH (17:30)
[2019-03-21 18:58] VITALS: BP 138/67
[2019-03-21] MEDS: INSULIN GLARGINE 100 UNITS/ML, PEN SQ-INSULIN SCH (20:44)
[2019-03-21] MEDS: ATORVASTATIN 40 MG TABLET PO SCH (20:45)
[2019-03-21] MEDS: RISPERIDONE 0.5 MG TABLET PO SCH (20:45)
[2019-03-21] MEDS: SUCRALFATE 1 GM TABLET PO SCH (20:46)
[2019-03-21] MEDS: CARVEDILOL 25 MG TABLET PO SCH (20:46)
[2019-03-22] MEDS: MECLIZINE 12.5 MG TABLET PO PRN ×2 (01:43→14:39)
[2019-03-22 02:29] VITALS: BP 118/57
[2019-03-22] MEDS: IPRATROPIUM 0.5 MG/2.5 ML INHA NPPB SCH ×4 (03:00→20:09)
[2019-03-22] MEDS: OXYcodone IR 5MG TABLET PO PRN (04:34)
[2019-03-22 05:40] LABS: ALBUMIN 2.6 g/dL (3.4-5.0); ANION GAP 7 mmol/L (5-15); CALCIUM 8.4 mg/dL (8.5-10.1); CHLORIDE 111 mmol/L (98-107)
[2019-03-22] MEDS: PANTOPRAZOLE 20MG TABLET PO SCH ×2 (05:43→17:10)
[2019-03-22] MEDS: SUCRALFATE 1 GM TABLET PO SCH ×4 (05:43→20:44)
[2019-03-22 05:44] LABS: ALANINE AMINOTRANSFERASE 15 U/L (12-78); ALKALINE PHOSPHATASE 79 U/L (45-117); BILIRUBIN,TOTAL 0.2 mg/dL (0.2-1.0); CREATININE 0.82 mg/dL (0.55-1.02); TOTAL PROTEIN 5.6 g/dL (6.4-8.2)
[2019-03-22 05:51] LABS: MEAN CORPUSCULAR HEMOGLOBIN 20.2 pg (27.0-34.8); MEAN CORPUSCULAR VOLUME 67.3 fL (80-100); MEAN PLATELET VOLUME 9.2 fL (7.4-10.4); PLATELET COUNT 234 x10^3/uL (130-400); RED BLOOD COUNT 4.46 x10^6/uL (3.82-5.3); RED CELL DISTRIBUTION WIDTH 31.6 % (9.6-15.2)
[2019-03-22 06:51] LABS: BASOPHILS # (AUTO) 0.05 x10^3/uL (0-0.1); BASOPHILS % (AUTO) 1 % (0-1); EOSINOPHILS % (AUTO) 3 % (1-7); LYMPHOCYTES # (AUTO) 1.69 x10^3/uL (1-3.4); LYMPHOCYTES % (AUTO) 26 % (22-44); MD SCAN; MONOCYTES # (AUTO) 0.66 x10^3/uL (0.2-0.8); MONOCYTES % (AUTO) 10 % (2-9); NEUTROPHILS # (AUTO) 3.84 x10^3/uL (1.8-6.8); NEUTROPHILS % (AUTO) 60 % (42-75)
[2019-03-22] MEDS: INSULIN LISPRO 100 UNITS/ML, PEN SQ-INSULIN SCH ×4 (07:30→20:49)
[2019-03-22 08:05] VITALS: BP 157/67
[2019-03-22] MEDS: FLUTICASONE NASAL SPRAY 16GM NAS SCH ×2 (08:07→20:43)
[2019-03-22] MEDS: FERROUS SULFATE 325 MG TABLET PO SCH ×2 (08:07→17:10)
[2019-03-22] MEDS: SODIUM CHLORIDE FLUSH 10ML SYR IVF SCH ×2 (08:07→20:47)
[2019-03-22] MEDS: GABAPENTIN 300 MG CAPSULE PO SCH ×3 (08:08→20:43)
[2019-03-22] MEDS: CARVEDILOL 25 MG TABLET PO SCH ×2 (08:08→20:43)
[2019-03-22] MEDS: SODIUM CHLORIDE NASAL SPRAY 45ML BOTTLE NAS SCH ×2 (08:08→20:43)
[2019-03-22] MEDS: BUSPIRONE 10 MG TABLET PO SCH ×2 (08:08→20:44)
[2019-03-22] MEDS: SERTRALINE 100MG TABLET PO SCH (08:08)
[2019-03-22] MEDS: SENNA/DOCUSATE TABLET PO SCH (08:08)
[2019-03-22] MEDS: ACETAMINOPHEN 325 MG TABLET PO PRN (08:09)
[2019-03-22] MEDS: CEFTRIAXONE PMX 1GM/50ML 50 ML IV SCH (12:46)
[2019-03-22 14:44] VITALS: BP 145/71
[2019-03-22 19:05] VITALS: BP 162/71
[2019-03-22] MEDS: INSULIN GLARGINE 100 UNITS/ML, PEN SQ-INSULIN SCH (20:42)
[2019-03-22] MEDS: ATORVASTATIN 40 MG TABLET PO SCH (20:43)
[2019-03-22] MEDS: RISPERIDONE 0.5 MG TABLET PO SCH (20:44)
[2019-03-23 01:20] VITALS: BP 156/56
[2019-03-23] MEDS: IPRATROPIUM 0.5 MG/2.5 ML INHA NPPB SCH (03:00)
[2019-03-23] MEDS: PANTOPRAZOLE 20MG TABLET PO SCH ×2 (05:25→17:44)
[2019-03-23] MEDS: SUCRALFATE 1 GM TABLET PO SCH ×4 (05:25→20:47)
[2019-03-23] MEDS: OXYcodone IR 5MG TABLET PO PRN ×2 (06:20→22:27)
[2019-03-23] MEDS: INSULIN LISPRO 100 UNITS/ML, PEN SQ-INSULIN SCH ×4 (07:00→20:48)
[2019-03-23 07:01] VITALS: BP 151/70
[2019-03-23] MEDS: SODIUM CHLORIDE FLUSH 10ML SYR IVF SCH ×2 (07:25→20:46)
[2019-03-23] MEDS: FLUTICASONE NASAL SPRAY 16GM NAS SCH ×2 (07:49→20:47)
[2019-03-23] MEDS: SODIUM CHLORIDE NASAL SPRAY 45ML BOTTLE NAS SCH ×2 (07:49→20:46)
[2019-03-23] MEDS: SENNA/DOCUSATE TABLET PO SCH (07:50)
[2019-03-23] MEDS: SERTRALINE 100MG TABLET PO SCH (07:50)
[2019-03-23] MEDS: FERROUS SULFATE 325 MG TABLET PO SCH ×2 (07:50→17:44)
[2019-03-23] MEDS: BUSPIRONE 10 MG TABLET PO SCH ×2 (07:50→20:47)
[2019-03-23] MEDS: CARVEDILOL 25 MG TABLET PO SCH ×2 (07:50→20:48)
[2019-03-23] MEDS: GABAPENTIN 300 MG CAPSULE PO SCH ×3 (07:50→20:47)
[2019-03-23] MEDS ORDERED: IPRATROPIUM 0.5 MG/2.5 ML INHA NPPB PRN (12:00)
[2019-03-23] MEDS: CEFTRIAXONE PMX 1GM/50ML 50 ML IV SCH (13:25)
[2019-03-23 13:46] VITALS: BP 136/66
[2019-03-23] MEDS: ACETAMINOPHEN 325 MG TABLET PO PRN (14:29)
[2019-03-23 18:41] VITALS: BP 151/72
[2019-03-23] MEDS: RISPERIDONE 0.5 MG TABLET PO SCH (20:47)
[2019-03-23] MEDS: ATORVASTATIN 40 MG TABLET PO SCH (20:47)
[2019-03-23] MEDS: INSULIN GLARGINE 100 UNITS/ML, PEN SQ-INSULIN SCH (20:49)
[2019-03-24 00:21] VITALS: BP 129/67
[2019-03-24] MEDS: MECLIZINE 12.5 MG TABLET PO PRN (03:47)
[2019-03-24] MEDS: SUCRALFATE 1 GM TABLET PO SCH ×3 (05:00→17:06)
[2019-03-24] MEDS: PANTOPRAZOLE 20MG TABLET PO SCH ×2 (05:00→17:14)
[2019-03-24 06:55] VITALS: BP 129/74
[2019-03-24] MEDS: INSULIN LISPRO 100 UNITS/ML, PEN SQ-INSULIN SCH ×3 (07:00→17:15)
[2019-03-24] MEDS: CARVEDILOL 25 MG TABLET PO SCH (07:26)
[2019-03-24] MEDS: FLUTICASONE NASAL SPRAY 16GM NAS SCH (07:26)
[2019-03-24] MEDS: GABAPENTIN 300 MG CAPSULE PO SCH ×2 (07:26→17:06)
[2019-03-24] MEDS: FERROUS SULFATE 325 MG TABLET PO SCH ×2 (07:26→17:06)
[2019-03-24] MEDS: SODIUM CHLORIDE NASAL SPRAY 45ML BOTTLE NAS SCH (07:26)
[2019-03-24] MEDS: SENNA/DOCUSATE TABLET PO SCH ×2 (07:26→07:31)
[2019-03-24] MEDS: BUSPIRONE 10 MG TABLET PO SCH (07:26)
[2019-03-24] MEDS: SERTRALINE 100MG TABLET PO SCH (07:26)
[2019-03-24] MEDS: SODIUM CHLORIDE FLUSH 10ML SYR IVF SCH (07:27)
[2019-03-24] MEDS: CEFTRIAXONE PMX 1GM/50ML 50 ML IV SCH (11:54)
[2019-03-24] MEDS: OXYcodone IR 5MG TABLET PO PRN (11:54)
[2019-03-24 12:10] VITALS: BP 130/73
[2019-03-24 18:56] VITALS: BP 123/64
[2019-03-24] MEDS ORDERED: ONDA4TAB13 SL (19:14)
[2019-03-24] MEDS ORDERED: METF10007 PO (19:14)
[2019-03-24] MEDS ORDERED: CALC200T24 PO (19:14)
[2019-03-24] MEDS ORDERED: ACET325T14 PO (19:14)
[2019-03-24] MEDS ORDERED: GABA300C10 PO (19:14)
[2019-03-24] MEDS ORDERED: CARV-39 PO (19:14)
[2019-03-24] MEDS ORDERED: SUCR1TAB PO (19:14)
[2019-03-24] MEDS ORDERED: SERT100T32 PO (19:14)
[2019-03-24] MEDS ORDERED: RISP0.5T3 PO (19:14)
[2019-03-24] MEDS ORDERED: TIOT18CA INH (19:14)
[2019-03-24] MEDS ORDERED: ALBU8.5H8 INH (19:14)
[2019-03-24] MEDS ORDERED: SENN-177 PO (19:14)
[2019-03-24] MEDS ORDERED: INSU100I11 SQ-INSULIN (19:14)
[2019-03-24] MEDS ORDERED: MECL12.52 PO (19:14)
[2019-03-24] MEDS ORDERED: INSU100I13 SQ-INSULIN (19:14)
[2019-03-24] MEDS ORDERED: FERR-51 PO (19:14)
[2019-03-24] MEDS ORDERED: ATOR40TA78 PO (19:14)
[2019-03-24] MEDS ORDERED: BUSP10TA PO (19:14)
[2019-03-24] MEDS ORDERED: PANT20TA3 PO (19:14)
[2019-03-24] MEDS ORDERED: LEVO750T26 PO (20:29)
== END 2019-03-24 21:10 | disposition home health service (06) | DRG 377 ==
LOC: ED 13:06 → EDIP 13:07 → INTOOBSV 13:07 → OBSVTOIN 13:07 → ED 13:27 → 5SO 15:55 → 3NE 03-15 20:20
PROVIDERS: ADMIT Internal Medicine; ATTEND Internal Medicine
PROC: 0DJ08ZZ Inspection of Upper Intestinal Tract, Via Natural or Artificial Opening Endoscopic (ICD-10-PCS; principal; 2019-03-18 14:00)
PROC: 30233N1 Transfusion of Nonautologous Red Blood Cells into Peripheral Vein, Percutaneous Approach (ICD-10-PCS; 2019-03-19)
PROC: 0DJD8ZZ Inspection of Lower Intestinal Tract, Via Natural or Artificial Opening Endoscopic (ICD-10-PCS; 2019-03-20)
DX: K25.4 Chronic or unspecified gastric ulcer with hemorrhage (principal); E43 Unspecified severe protein-calorie malnutrition; R71.0 Precipitous drop in hematocrit; N12 Tubulo-interstitial nephritis, not specified as acute or chronic; K57.30 Diverticulosis of large intestine without perforation or abscess without bleeding; I95.9 Hypotension, unspecified; R55 Syncope and collapse; F32.9 Major depressive disorder, single episode, unspecified; E11.65 Type 2 diabetes mellitus with hyperglycemia; E55.9 Vitamin D deficiency, unspecified; E78.5 Hyperlipidemia, unspecified; F43.10 Post-traumatic stress disorder, unspecified; G47.33 Obstructive sleep apnea (adult) (pediatric); H40.9 Unspecified glaucoma; I10 Essential (primary) hypertension; J44.9 Chronic obstructive pulmonary disease, unspecified; Z96.651 Presence of right artificial knee joint; K21.9 Gastro-esophageal reflux disease without esophagitis; M06.9 Rheumatoid arthritis, unspecified; Z87.11 Personal history of peptic ulcer disease; Z87.440 Personal history of urinary (tract) infections; Z99.81 Dependence on supplemental oxygen; Z68.22 Body mass index [BMI] 22.0-22.9, adult; Z88.1 Allergy status to other antibiotic agents; Z88.5 Allergy status to narcotic agent
CPT/HCPCS: 36415; 36430; 70450; 71045; 76770; 78452; 80048; 80053; 80061; 81001; 81003; 82040; 82272; 82533; 82728; 82962; 83036; 83540; 83550; 83735; 83880; 84443; 84466; 84484; 85014; 85018; 85025; 85610; 86850; 86900; 86923; 87077; 87086; 87186; 87324; 93005; 93017; 93306; 94640; 97164; G0378; J0696; J1650; J1756; J2704; J2785; J3010; J3480; J7613; J7644; A9502; C9113; C9898; J1815; J7030; P9016

== ENCOUNTER 2019-03-28 08:16 | Emergency (ER) | payer MEDICARE, MEDICAID ==
[~2019-03-28] VITALS: Ht 160 cm; Wt 53.0 kg
[~2019-03-28 08:16] MED LIST changes: +ACET325T14 PO; +AMLO-150 PO; +ASCO500W4 PO; +ATOR40TA78 PO; +CALC200T24 PO; +CARV-39 PO; +CHOL400C11 PO; +DULA1.5P INJ; +FERR-51 PO; +HTN MED; +INSU100I11 SQ-INSULIN; +INSU100I13 SQ-INSULIN; +LEVO750T26 PO; +MECL12.52 PO; +METF10007 PO; +PANT20TA3 PO; +SENN-177 PO; +SUCR1TAB PO; +TIZA4TAB PO
[2019-03-28] MEDS ORDERED: KETOROLAC 30 MG/1 ML IM ONE (09:00)
--- NOTE | 2019-03-28 09:00 | NUR ---
assumed care. pt off floor at radiology
[2019-03-28 09:28] LABS: ALBUMIN 3.3 g/dL (3.4-5.0); ANION GAP 9 mmol/L (5-15); CALCIUM 8.6 mg/dL (8.5-10.1); CHLORIDE 110 mmol/L (98-107); MEAN CORPUSCULAR HEMOGLOBIN 21.4 pg (27.0-34.8); MEAN CORPUSCULAR HGB CONC 30.5 g/dL (32.4-35.8); MEAN CORPUSCULAR VOLUME 70.2 fL (80-100); MEAN PLATELET VOLUME 9.6 fL (7.4-10.4); PLATELET COUNT 351 x10^3/uL (130-400); RED CELL DISTRIBUTION WIDTH 36.1 % (9.6-15.2)
[2019-03-28 09:34] LABS: ALANINE AMINOTRANSFERASE 26 U/L (12-78); BILIRUBIN,TOTAL 0.6 mg/dL (0.2-1.0); CREATININE 0.75 mg/dL (0.55-1.02); TOTAL PROTEIN 6.9 g/dL (6.4-8.2); TROPONIN I < 0.015 ng/mL (0.000-0.045)
[2019-03-28 09:37] LABS: ALKALINE PHOSPHATASE 110 U/L (45-117)
[2019-03-28 09:43] LABS: BASOPHILS # (AUTO) 0.05 x10^3/uL (0-0.1); BASOPHILS % (AUTO) 1 % (0-1); EOSINOPHILS # (AUTO) 0.19 x10^3/uL (0-0.4); EOSINOPHILS % (AUTO) 2 % (1-7); LYMPHOCYTES # (AUTO) 1.31 x10^3/uL (1-3.4); LYMPHOCYTES % (AUTO) 16 % (22-44); MD MORPH REVIEW ONLY; MONOCYTES # (AUTO) 0.69 x10^3/uL (0.2-0.8); MONOCYTES % (AUTO) 9 % (2-9); NEUTROPHILS # (AUTO) 5.78 x10^3/uL (1.8-6.8); NEUTROPHILS % (AUTO) 72 % (42-75)
[2019-03-28 09:44] LABS: ANISOCYTOSIS 2+; HYPOCHROMIA 1+; MICROCYTOSIS 2+; POLYCHROMASIA 1+
[2019-03-28 09:45] LABS: <PLATELET ESTIMATE> ADEQUATE; <PLT MORPHOLOGY> NORMAL PLT MORPH; SPHEROCYTES 1+
[2019-03-28 10:30] LABS: CULTURE INDICATED? YES; MICROSCOPIC INDICATED
[2019-03-28] MEDS ORDERED: KETOROLAC 30 MG/1 ML ONE (10:47)
--- NOTE | 2019-03-28 10:52 | NUR ---
AFTER OBTAINING URINE SAMPLE, PT MEDICATED FOR 9/10 RIGHT SIDE PAIN.
[2019-03-28 11:41] VITALS: BP 182/73
--- NOTE | 2019-03-28 11:43 | NUR ---
Patient/Caregiver given discharge instructions and they have confirmed that they understand the instructions. Patiet to DC desk in personal motorized WC. Pt left with all personal belongings.
== END 2019-03-28 11:44 | disposition home or self-care (01) ==
LOC: ED 11:02
DX: R31.29 Other microscopic hematuria (principal); R05 Cough; K21.9 Gastro-esophageal reflux disease without esophagitis; F32.9 Major depressive disorder, single episode, unspecified; F43.10 Post-traumatic stress disorder, unspecified; E78.5 Hyperlipidemia, unspecified; E11.9 Type 2 diabetes mellitus without complications; I10 Essential (primary) hypertension; J44.9 Chronic obstructive pulmonary disease, unspecified; Z90.49 Acquired absence of other specified parts of digestive tract; Z88.1 Allergy status to other antibiotic agents; Z88.5 Allergy status to narcotic agent; Z79.899 Other long term (current) drug therapy; Z72.9 Problem related to lifestyle, unspecified
CPT/HCPCS: 36415; 71046; 76700; 80053; 81001; 83690; 84484; 85025; 87086; 93005; 96372; 99284; J1885

== ENCOUNTER 2019-03-31 10:05 | Emergency (ER) | payer MEDICARE, MEDICAID ==
[~2019-03-31] VITALS: Ht 160 cm; Wt 52.7 kg
--- NOTE | 2019-03-31 10:41 | NUR ---
PT RODE ON MOTORIZED WHEELCHAIR HERE TO BE SEEN FOR R FLANK PAIN FOLLOWING FALL LAST NIGHT. PT STATES SHE FELT "LIGHTHEADED" PRIOR TO FALL AGAINST DOOR. PT DENIES HITTING GROUND, OR ANY INJURY BESIDES PAIN TO R SIDE. PT DENIES LOC. PT SEEN HERE PREVIOUSLY FOR SAME, LAST VISIT THREE DAYS AGO WITH LABS AND IMAGING COMPLETED. PT SEEN BY ERP ON ARRIVAL TO ED ROOM 1. PT ASSISTED FROM CHAIR INTO BED BUT ABLE TO TRANSFER TO BED BY SELF. HEART MONITOR, BP CUFF, PULSE OX IN PLACE. CALL LIGHT WITHIN REACH. PT TO XRAY.
--- NOTE | 2019-03-31 11:10 | NUR ---
XR RESULTS BACK, PT FOR RECHECK.
[2019-03-31 11:35] VITALS: BP 177/72
== END 2019-03-31 12:24 | disposition home or self-care (01) ==
LOC: ED 11:11
DX: S20.211A Contusion of right front wall of thorax, initial encounter (principal); I10 Essential (primary) hypertension; K21.9 Gastro-esophageal reflux disease without esophagitis; F32.9 Major depressive disorder, single episode, unspecified; E78.5 Hyperlipidemia, unspecified; J44.9 Chronic obstructive pulmonary disease, unspecified; F17.200 Nicotine dependence, unspecified, uncomplicated; E11.9 Type 2 diabetes mellitus without complications; Z90.49 Acquired absence of other specified parts of digestive tract; W18.30XA Fall on same level, unspecified, initial encounter; Y93.89 Activity, other specified; Y92.009 Unspecified place in unspecified non-institutional (private) residence as the place of occurrence of the external cause; Y99.8 Other external cause status
CPT/HCPCS: 93005; 99283

== ENCOUNTER 2019-04-01 05:23 | Observation (INO) | payer MEDICARE, MEDICAID ==
[~2019-04-01] VITALS: Ht 160 cm; Wt 57.5 kg
--- NOTE | 2019-04-01 05:34 | NUR ---
TALITA. REPORT FROM EMS. PT C/O RIGHT SIDED BACK PAIN D/T [facility] 2 DAYS AGO. SEEN HERE YESTERDAY, BUT PAIN GETS WORSE. PT STATES PAIN LEVEL IS 10/10 AT THIS TIME. PT C/O N/V WELL. PT'S AOX4. RESPS EVEN AND UNLABORED. AWAITING EDMD ORDERES.
--- NOTE | 2019-04-01 06:17 | NUR ---
CT PENDING LAB/CREATINE
[2019-04-01] MEDS ORDERED: SODIUM CHLORIDE FLUSH 10ML SYR IVF ONE (06:30)
[2019-04-01 06:50] LABS: ALBUMIN 3.8 g/dL (3.4-5.0); ANION GAP 7 mmol/L (5-15); CALCIUM 9.5 mg/dL (8.5-10.1); CHLORIDE 107 mmol/L (98-107)
[2019-04-01 06:53] LABS: MEAN CORPUSCULAR HEMOGLOBIN 22.2 pg (27.0-34.8); MEAN CORPUSCULAR HGB CONC 31.1 g/dL (32.4-35.8); MEAN CORPUSCULAR VOLUME 71.5 fL (80-100); MEAN PLATELET VOLUME 9.2 fL (7.4-10.4); PLATELET COUNT 388 x10^3/uL (130-400); RED BLOOD COUNT 5.36 x10^6/uL (3.82-5.3); RED CELL DISTRIBUTION WIDTH 36.5 % (9.6-15.2)
--- NOTE | 2019-04-01 06:54 | NUR ---
report given to dahlia victoria.
--- NOTE | 2019-04-01 06:58 | NUR ---
STILL WAITING FOR CREATINE BEFORE CT.
--- NOTE | 2019-04-01 07:03 | NUR ---
Received bedside report from KORTNEY Ramirez. All questions answered. NADN. Pt connected to NIBP cuff and continous pulse ox. Pt requesting pain medication. ED PA aware. Both bedside rails up for safety measures. Call light within reach. Pt waiting for CT. Pt aware of need or urine for UA.
[2019-04-01 07:10] LABS: MD YES
[2019-04-01 07:11] LABS: ANISOCYTOSIS 2+; BASOS#(MANUAL) 0.11 x10^3/uL (0-0.1); BASOS% (MANUAL) 1 % (0-1); EOS#(MANUAL) 0.11 x10^3/uL (0.0-0.4); EOS% (MANUAL) 1 % (1-7); HYPOCHROMIA 1+; LYMPH#(MANUAL) 1.91 x10^3/uL (1-3.4); LYMPHS% (MANUAL) 18 % (22-44); MICROCYTOSIS 2+; MONOS#(MANUAL) 0.64 x10^3/uL (0.3-2.7); MONOS% (MANUAL) 6 % (2-9); POLYCHROMASIA 1+; SEG#(MANUAL) 7.84 x10^3/uL (1.8-6.8); SEGS% (MANUAL) 74 % (42-75)
[2019-04-01 07:12] LABS: <PLATELET ESTIMATE> ADEQUATE; <PLT MORPHOLOGY> NORMAL PLT MORPH; SPHEROCYTES 1+
[2019-04-01] MEDS ORDERED: OMNIPAQUE 350 MG/ML, 100ML BOTTLE ONE (07:42)
[2019-04-01] MEDS ORDERED: ONDANSETRON 2MG/ML, 2ML IVPush ONE (08:00)
[2019-04-01] MEDS ORDERED: ONDANSETRON 2MG/ML, 2ML ONE (08:18)
[2019-04-01] MEDS ORDERED: HYDROmorphone 2 MG/ML, 1ML ONE ×2 (08:18→10:11)
[2019-04-01] MEDS: HYDROmorphone 2 MG/ML, 1ML IVPush PRN ×2 (08:40→10:14)
--- NOTE | 2019-04-01 08:47 | NUR ---
Pt up with steady gait and balance with personal walker to restroom. UA cup provided. NADN. No obvious defecits observed.
[2019-04-01 09:13] LABS: MICROSCOPIC AUTO
--- NOTE | 2019-04-01 09:14 | NUR ---
Pt ambulates with steady gait and balance from restroom to [place]. NADN. No needs expressed. Call light within reach. Both bedrails up for safety measures. Pt connected to pulse ox and NIBP cuff.
[2019-04-01 09:18] LABS: CULTURE INDICATED? YES
--- NOTE | 2019-04-01 10:42 | NUR ---
TASK RN: REPORT GIVEN TO VALORIE, RECEIVING RN. ALL QUESTIONS ANSWERED. AWAITING PT TRANSPORT.
[2019-04-01] MEDS ORDERED: ONDANSETRON ODT 4 MG SL PRN (11:30)
[2019-04-01] MEDS ORDERED: NITROGLYCERIN 0.4 MG BOTTLE (25 TABS) SL PRN (11:30)
[2019-04-01] MEDS ORDERED: CALCIUM CARBONATE 500 MG TAB.CHEW PO PRN (11:30)
[2019-04-01] MEDS ORDERED: CYCLOBENZAPRINE 10 MG TABLET PO PRN (11:30)
[2019-04-01] MEDS ORDERED: ONDANSETRON 2MG/ML, 2ML IVPush PRN (11:30)
[2019-04-01] MEDS ORDERED: ACETAMINOPHEN 325 MG TABLET PO PRN (11:30)
[2019-04-01] MEDS ORDERED: hydrALAzine 20 MG/ML, 1ML IVPush PRN (11:30)
[2019-04-01] MEDS ORDERED: ALBUTEROL SULFATE 2.5 MG/3 ML NPPB PRN (11:30)
[2019-04-01] MEDS ORDERED: TEMPLATE NON-FORMULARY MED. (Dulaglutide (Trulicity) 1.5 MG) INJ SCH ×2 (11:30→12:34)
[2019-04-01] MEDS ORDERED: DOCUSATE 100 MG CAPSULE PO PRN (11:30)
[2019-04-01] MEDS ORDERED: MECLIZINE 12.5 MG TABLET PO PRN (11:30)
[2019-04-01 11:51] VITALS: BP 135/52
[2019-04-01] MEDS: BUSPIRONE 10 MG TABLET PO SCH ×2 (11:57→20:34)
[2019-04-01] MEDS: PANTOPRAZOLE 20MG TABLET PO SCH ×2 (11:58→23:53)
[2019-04-01] MEDS: SENNA/DOCUSATE TABLET PO SCH (11:58)
[2019-04-01] MEDS: OXYcodone IR 5MG TABLET PO PRN ×4 (11:58→21:21)
[2019-04-01] MEDS: ASCORBIC ACID 500 MG TABLET PO SCH (11:58)
[2019-04-01] MEDS: CARVEDILOL 25 MG TABLET PO SCH ×2 (11:59→20:35)
[2019-04-01] MEDS: SERTRALINE 100MG TABLET PO SCH (11:59)
[2019-04-01] MEDS: TIZANIDINE 4MG TABLET PO SCH ×3 (11:59→20:34)
[2019-04-01] MEDS: LIDODERM 5% PATCH TD SCH (11:59)
[2019-04-01] MEDS: GABAPENTIN 300 MG CAPSULE PO SCH ×3 (11:59→20:34)
[2019-04-01] MEDS: NICOTINE 7 MG/24 HR PATCH.TD24 TD SCH (11:59)
[2019-04-01] MEDS: SUCRALFATE 1 GM TABLET PO SCH ×3 (11:59→20:34)
[2019-04-01] MEDS: LIDODERM REMOVE PATCH NOTE XX SCH (12:00)
[2019-04-01] MEDS: INSULIN LISPRO 100 UNITS/ML, PEN SQ-INSULIN SCH ×3 (12:00→21:00)
[2019-04-01] MEDS: ENOXAPARIN 40 MG/0.4 ML SQ SCH (12:02)
[2019-04-01 14:00] VITALS: BP 115/45
[2019-04-01] MEDS: FERROUS SULFATE 325 MG TABLET PO SCH (16:35)
[2019-04-01 18:36] VITALS: BP 120/72
[2019-04-01] MEDS: metFORMIN 500 MG TABLET PO SCH (20:34)
[2019-04-01] MEDS: RISPERIDONE 0.5 MG TABLET PO SCH (20:35)
[2019-04-01] MEDS: ATORVASTATIN 40 MG TABLET PO SCH (20:35)
[2019-04-01] MEDS ORDERED: IPRATROPIUM 0.5 MG/2.5 ML INHA NPPB SCH (21:00)
[2019-04-01] MEDS: INSULIN GLARGINE 100 UNITS/ML, PEN SQ-INSULIN SCH (21:21)
[2019-04-02 00:14] VITALS: BP 114/69
[2019-04-02] MEDS ORDERED: IPRATROPIUM 0.5 MG/2.5 ML INHA NPPB SCH (03:00)
[2019-04-02] MEDS: OXYcodone IR 5MG TABLET PO PRN ×3 (03:50→21:07)
[2019-04-02] MEDS: SUCRALFATE 1 GM TABLET PO SCH ×4 (05:09→21:07)
[2019-04-02 05:51] LABS: MEAN CORPUSCULAR HEMOGLOBIN 22.2 pg (27.0-34.8); MEAN CORPUSCULAR HGB CONC 30.4 g/dL (32.4-35.8); MEAN PLATELET VOLUME 9.3 fL (7.4-10.4); PLATELET COUNT 344 x10^3/uL (130-400); RED BLOOD COUNT 5.38 x10^6/uL (3.82-5.3); RED CELL DISTRIBUTION WIDTH 36.3 % (9.6-15.2)
[2019-04-02 05:59] LABS: ANION GAP 4 mmol/L (5-15); CALCIUM 9.2 mg/dL (8.5-10.1); CHLORIDE 104 mmol/L (98-107)
[2019-04-02 06:00] LABS: CREATININE 0.88 mg/dL (0.55-1.02)
[2019-04-02 06:08] LABS: MD YES
[2019-04-02 06:17] LABS: <PLATELET ESTIMATE> ADEQUATE; <PLT MORPHOLOGY> NORMAL PLT MORPH; ANISOCYTOSIS 2+; BAND#(MANUAL) 0.11 x10^3/uL; BANDS%(MANUAL) 2 % (0-7); EOS#(MANUAL) 0.32 x10^3/uL (0.0-0.4); EOS% (MANUAL) 6 % (1-7); HYPOCHROMIA 1+; LYMPH#(MANUAL) 2.97 x10^3/uL (1-3.4); LYMPHS% (MANUAL) 55 % (22-44); MICROCYTOSIS 2+; MONOS#(MANUAL) 0.32 x10^3/uL (0.3-2.7); MONOS% (MANUAL) 6 % (2-9); POLYCHROMASIA 1+; SEG#(MANUAL) 1.67 x10^3/uL (1.8-6.8); SEGS% (MANUAL) 31 % (42-75); SPHEROCYTES 1+
[2019-04-02 06:18] LABS: TARGET CELLS 1+
[2019-04-02 06:48] VITALS: BP 126/53
[2019-04-02] MEDS: INSULIN LISPRO 100 UNITS/ML, PEN SQ-INSULIN SCH ×4 (07:00→20:58)
[2019-04-02] MEDS ORDERED: ALBUTEROL/IPRATROPIUM 2.5MG/0.5MG, 3 ML ONE (07:05)
[2019-04-02] MEDS: ALBUTEROL/IPRATROPIUM 2.5MG/0.5MG, 3 ML NPPB SCH ×3 (07:12→20:07)
[2019-04-02] MEDS: CHOLECALCIFEROL 400 UNITS TABLET PO SCH (08:31)
[2019-04-02] MEDS: BUSPIRONE 10 MG TABLET PO SCH ×2 (08:31→20:58)
[2019-04-02] MEDS: ASCORBIC ACID 500 MG TABLET PO SCH (08:31)
[2019-04-02] MEDS: CARVEDILOL 25 MG TABLET PO SCH ×2 (08:31→20:56)
[2019-04-02] MEDS: metFORMIN 500 MG TABLET PO SCH ×2 (08:32→20:55)
[2019-04-02] MEDS: FERROUS SULFATE 325 MG TABLET PO SCH ×2 (08:32→16:36)
[2019-04-02] MEDS: SENNA/DOCUSATE TABLET PO SCH (08:32)
[2019-04-02] MEDS: SERTRALINE 100MG TABLET PO SCH (08:32)
[2019-04-02] MEDS: TIZANIDINE 4MG TABLET PO SCH ×3 (08:32→20:56)
[2019-04-02] MEDS: GABAPENTIN 300 MG CAPSULE PO SCH ×3 (08:32→20:56)
[2019-04-02] MEDS: ENOXAPARIN 40 MG/0.4 ML SQ SCH (11:32)
[2019-04-02] MEDS: LIDODERM 5% PATCH TD SCH (11:32)
[2019-04-02] MEDS: PANTOPRAZOLE 20MG TABLET PO SCH ×2 (11:32→23:35)
[2019-04-02] MEDS: NICOTINE 7 MG/24 HR PATCH.TD24 TD SCH (11:32)
[2019-04-02 14:32] VITALS: BP 117/49
[2019-04-02 18:59] VITALS: BP 134/58
[2019-04-02] MEDS: ATORVASTATIN 40 MG TABLET PO SCH (20:56)
[2019-04-02] MEDS: RISPERIDONE 0.5 MG TABLET PO SCH (20:57)
[2019-04-02] MEDS: INSULIN GLARGINE 100 UNITS/ML, PEN SQ-INSULIN SCH (21:08)
[2019-04-02] MEDS: LIDODERM REMOVE PATCH NOTE XX SCH (23:30)
[2019-04-03] MEDS: OXYcodone IR 5MG TABLET PO PRN ×4 (01:38→16:02)
[2019-04-03 01:42] VITALS: BP 121/51
[2019-04-03] MEDS: ALBUTEROL/IPRATROPIUM 2.5MG/0.5MG, 3 ML NPPB SCH ×2 (03:00→09:55)
[2019-04-03] MEDS: SUCRALFATE 1 GM TABLET PO SCH ×3 (06:30→16:02)
[2019-04-03] MEDS: INSULIN LISPRO 100 UNITS/ML, PEN SQ-INSULIN SCH ×3 (07:00→16:00)
[2019-04-03 07:37] VITALS: BP 107/54
[2019-04-03] MEDS: BUSPIRONE 10 MG TABLET PO SCH (07:50)
[2019-04-03] MEDS: GABAPENTIN 300 MG CAPSULE PO SCH ×2 (07:50→16:02)
[2019-04-03] MEDS: SERTRALINE 100MG TABLET PO SCH (07:50)
[2019-04-03] MEDS: FERROUS SULFATE 325 MG TABLET PO SCH ×2 (07:50→16:02)
[2019-04-03] MEDS: CARVEDILOL 25 MG TABLET PO SCH (07:50)
[2019-04-03] MEDS: CHOLECALCIFEROL 400 UNITS TABLET PO SCH (07:51)
[2019-04-03] MEDS: TIZANIDINE 4MG TABLET PO SCH ×2 (07:51→16:02)
[2019-04-03] MEDS: ASCORBIC ACID 500 MG TABLET PO SCH (07:51)
[2019-04-03] MEDS: metFORMIN 500 MG TABLET PO SCH (07:51)
[2019-04-03] MEDS: SENNA/DOCUSATE TABLET PO SCH (07:52)
[2019-04-03] MEDS: PANTOPRAZOLE 20MG TABLET PO SCH (10:48)
[2019-04-03] MEDS: NICOTINE 7 MG/24 HR PATCH.TD24 TD SCH (10:48)
[2019-04-03] MEDS: ENOXAPARIN 40 MG/0.4 ML SQ SCH (10:48)
[2019-04-03] MEDS: LIDODERM 5% PATCH TD SCH (10:48)
[2019-04-03 12:53] VITALS: BP 114/48
[2019-04-03] MEDS ORDERED: OXYC5TAB3 PO (16:49)
== END 2019-04-03 18:05 | disposition home or self-care (01) ==
LOC: ED 05:47 → EDIP 09:35 → INTOOBSV 09:35 → 4NOR 11:20
PROVIDERS: ADMIT Internal Medicine; ATTEND Internal Medicine
DX: M54.5 Low back pain (principal); I10 Essential (primary) hypertension; E11.39 Type 2 diabetes mellitus with other diabetic ophthalmic complication; J44.9 Chronic obstructive pulmonary disease, unspecified; K21.9 Gastro-esophageal reflux disease without esophagitis; E56.9 Vitamin deficiency, unspecified; R07.89 Other chest pain; G47.33 Obstructive sleep apnea (adult) (pediatric); M06.9 Rheumatoid arthritis, unspecified; E78.5 Hyperlipidemia, unspecified; F43.10 Post-traumatic stress disorder, unspecified; D50.8 Other iron deficiency anemias; R22.0 Localized swelling, mass and lump, head; F17.200 Nicotine dependence, unspecified, uncomplicated; Z87.448 Personal history of other diseases of urinary system; Z79.84 Long term (current) use of oral hypoglycemic drugs; Z79.899 Other long term (current) drug therapy; Z88.5 Allergy status to narcotic agent; Z88.1 Allergy status to other antibiotic agents
CPT/HCPCS: 36415; 70450; 71260; 72072; 74177; 80048; 81001; 82040; 82962; 83735; 84100; 85025; 87086; 94640; 96372; 96374; 96375; 96376; 97162; 99284; G0378; J1170; J1650; J1815; J2405; J7620; Q0162; Q9967

== ENCOUNTER 2019-04-17 10:07 | Emergency (ER) | payer MEDICARE, MEDICAID ==
[~2019-04-17] VITALS: Ht 160 cm; Wt 55.0 kg
[~2019-04-17 10:07] MED LIST changes: +OXYC5TAB3 PO
[2019-04-17 10:20] VITALS: BP 153/69
[2019-04-17] MEDS ORDERED: KETOROLAC 30 MG/1 ML IM ONE (11:00)
[2019-04-17] MEDS ORDERED: KETOROLAC 30 MG/1 ML ONE (11:15)
--- NOTE | 2019-04-17 11:56 | NUR ---
BREAK RN: Patient/Caregiver given discharge instructions and they have confirmed that they understand the instructions. Patient to discharge desk via personal wheelchair with all belongings.
== END 2019-04-17 11:58 | disposition home or self-care (01) ==
LOC: ED 11:52
DX: M54.16 Radiculopathy, lumbar region (principal); G89.29 Other chronic pain; I10 Essential (primary) hypertension; E11.9 Type 2 diabetes mellitus without complications; F32.9 Major depressive disorder, single episode, unspecified; K21.9 Gastro-esophageal reflux disease without esophagitis; J44.9 Chronic obstructive pulmonary disease, unspecified; Z90.49 Acquired absence of other specified parts of digestive tract; F43.10 Post-traumatic stress disorder, unspecified; Z88.6 Allergy status to analgesic agent; Z88.1 Allergy status to other antibiotic agents
CPT/HCPCS: 72110; 96372; 99283; J1885

== ENCOUNTER 2019-09-22 15:22 | Outpatient (CLI) | payer MEDICARE, MEDICAID ==
[~2019-09-22 15:22] MED LIST changes: +ENOX60DI3 SQ; +HYDR-3240 PO; -HYDR-3307 PO; +HYDR-36 PO; +OMEP-110 PO; +OMEP40CA42 PO; -OMEP40CA6 PO; -OXYB10TA PO; +OXYB10TA2 PO; -TIZA4TAB PO; +TIZA4TAB2 PO; +WARF-36 PO-COUM
== END 2019-09-22 23:59 | disposition home or self-care (01) ==
LOC: RAD 15:22
PROVIDERS: ATTEND Nurse Practitioner Family
DX: Z02.9 Encounter for administrative examinations, unspecified (principal)

== ENCOUNTER → 2019-09-23 | Outpatient (CLI) | payer MEDICARE, MEDICAID | END | disposition home or self-care (01) | LOC: RAD 10:54 | PROVIDERS: ATTEND Nurse Practitioner Family | DX: I82.402 Acute embolism and thrombosis of unspecified deep veins of left lower extremity (principal) ==

== ENCOUNTER 2019-10-01 16:20 | Emergency (ER) | payer MEDICARE, MEDICAID ==
[~2019-10-01] VITALS: Ht 160 cm; Wt 54.5 kg
[2019-10-01 17:42] LABS: HCT (SEDRATE) 46.9 % (34.6-47.8)
[2019-10-01 17:43] LABS: BASOPHILS # (AUTO) 0.02 x10^3/uL (0-0.1); BASOPHILS % (AUTO) 0 % (0-1); EOSINOPHILS # (AUTO) 0.12 x10^3/uL (0-0.4); EOSINOPHILS % (AUTO) 2 % (1-7); LYMPHOCYTES # (AUTO) 1.64 x10^3/uL (1-3.4); LYMPHOCYTES % (AUTO) 26 % (22-44); MD NO; MEAN CORPUSCULAR HEMOGLOBIN 28.4 pg (27.0-34.8); MEAN CORPUSCULAR HGB CONC 32.3 g/dL (32.4-35.8); MEAN PLATELET VOLUME 9.8 fL (7.4-10.4); MONOCYTES # (AUTO) 0.48 x10^3/uL (0.2-0.8); MONOCYTES % (AUTO) 8 % (2-9); NEUTROPHILS % (AUTO) 64 % (42-75); PLATELET COUNT 263 x10^3/uL (130-400); RED BLOOD COUNT 5.31 x10^6/uL (3.82-5.3); RED CELL DISTRIBUTION WIDTH 15.9 % (9.6-15.2)
[2019-10-01 17:51] LABS: ALBUMIN 3.2 g/dL (3.4-5.0); ANION GAP 3 mmol/L (5-15); CALCIUM 8.9 mg/dL (8.5-10.1); CHLORIDE 103 mmol/L (98-107); CREATININE 0.97 mg/dL (0.55-1.02)
[2019-10-01] MEDS ORDERED: HYDROcodone/APAP 5/325 TABLET PO ONE (18:30)
[2019-10-01] MEDS ORDERED: HYDROcodone/APAP 5/325 TABLET ONE (18:44)
[2019-10-01 20:01] VITALS: BP 149/49
== END 2019-10-01 20:03 | disposition home or self-care (01) ==
LOC: ED 16:54
DX: R51 Headache (principal); R68.84 Jaw pain; H92.09 Otalgia, unspecified ear; R94.31 Abnormal electrocardiogram [ECG] [EKG]; I10 Essential (primary) hypertension; E11.9 Type 2 diabetes mellitus without complications; G89.29 Other chronic pain; J45.909 Unspecified asthma, uncomplicated; K21.9 Gastro-esophageal reflux disease without esophagitis; E78.5 Hyperlipidemia, unspecified; Z86.718 Personal history of other venous thrombosis and embolism; Z90.49 Acquired absence of other specified parts of digestive tract
CPT/HCPCS: 36415; 80048; 82040; 85025; 85651; 93005; 99284

== ENCOUNTER 2019-12-16 13:18 | Emergency (ER) | payer MEDICARE, MEDICAID ==
[~2019-12-16] VITALS: Ht 160 cm; Wt 57.5 kg
[~2019-12-16 13:18] MED LIST changes: -MECL12.52 PO; +MECL12.581 PO; +MONT10TA11 PO; -MONT10TA9 PO; -OXYB10TA2 PO; +OXYB10TA26 PO; +SIMV20TA19 PO; -SIMV20TA3 PO
[2019-12-16 13:30] VITALS: BP 165/67
--- NOTE | 2019-12-16 13:42 | NUR ---
PT HERE WITH C/O SHARP PAINS FROM POSTERIOR HIP TO TOES ON LEFT SIDE THAT STARTED A WEEK AGO.
[2019-12-16] MEDS ORDERED: DIAZEPAM 5 MG TABLET ONE (13:45)
--- NOTE | 2019-12-16 13:48 | NUR ---
PT MEDICATED PER ORDERS.
[2019-12-16] MEDS ORDERED: DIAZEPAM 5 MG TABLET PO ONE (14:00)
--- NOTE | 2019-12-16 16:18 | NUR ---
ALL RESULTS BACK AT THIS TIME, CHART UP FOR RECHECK.
--- NOTE | 2019-12-16 16:23 | NUR ---
Patient/Caregiver given discharge instructions and they have confirmed that they understand the instructions. Patient ambulatory with steady gait.
== END 2019-12-16 16:24 | disposition home or self-care (01) ==
LOC: ED 13:30
DX: S39.012A Strain of muscle, fascia and tendon of lower back, initial encounter (principal); E11.9 Type 2 diabetes mellitus without complications; I10 Essential (primary) hypertension; K21.9 Gastro-esophageal reflux disease without esophagitis; J44.9 Chronic obstructive pulmonary disease, unspecified; G89.29 Other chronic pain; W18.30XA Fall on same level, unspecified, initial encounter; Y93.89 Activity, other specified; Y92.89 Other specified places as the place of occurrence of the external cause; Y99.8 Other external cause status
CPT/HCPCS: 72110; 99284

== ENCOUNTER 2019-12-19 09:05 | Emergency (ER) | payer MEDICARE, MEDICAID ==
[~2019-12-19] VITALS: Ht 160 cm; Wt 58.2 kg
[2019-12-19] MEDS ORDERED: HYDROcodone/APAP 5/325 TABLET ONE (09:44)
--- NOTE | 2019-12-19 09:57 | NUR ---
URINE SAMPLE WALKED TO LAB
[2019-12-19] MEDS ORDERED: HYDROcodone/APAP 5/325 TABLET PO ONE (10:00)
[2019-12-19 10:05] LABS: MICROSCOPIC AUTO
[2019-12-19 10:09] LABS: CULTURE INDICATED? YES
[2019-12-19 10:21] LABS: ALBUMIN 3.4 g/dL (3.4-5.0); ANION GAP 9 mmol/L (5-15); CALCIUM 8.9 mg/dL (8.5-10.1); CHLORIDE 109 mmol/L (98-107); CREATININE 0.95 mg/dL (0.55-1.02)
--- NOTE | 2019-12-19 10:39 | NUR ---
pt to ct
[2019-12-19] MEDS ORDERED: CEFTRIAXONE 1,000 MG IV ONE (11:30)
[2019-12-19] MEDS ORDERED: SODIUM CHLORIDE 0.9% 1,000ML IVBOLUS ONE (11:30)
[2019-12-19] MEDS ORDERED: CEFTRIAXONE PMX 1GM/50ML 50 ML ONE (11:40)
[2019-12-19 11:57] LABS: BASOPHILS # (AUTO) 0.04 x10^3/uL (0-0.1); BASOPHILS % (AUTO) 1 % (0-1); EOSINOPHILS # (AUTO) 0.07 x10^3/uL (0-0.4); EOSINOPHILS % (AUTO) 1 % (1-7); LYMPHOCYTES # (AUTO) 2.21 x10^3/uL (1-3.4); LYMPHOCYTES % (AUTO) 37 % (22-44); MD NO; MEAN CORPUSCULAR HEMOGLOBIN 27.5 pg (27.0-34.8); MEAN CORPUSCULAR HGB CONC 32.5 g/dL (32.4-35.8); MEAN CORPUSCULAR VOLUME 84.6 fL (80-100); MEAN PLATELET VOLUME 9.9 fL (7.4-10.4); MONOCYTES # (AUTO) 0.31 x10^3/uL (0.2-0.8); MONOCYTES % (AUTO) 5 % (2-9); NEUTROPHILS % (AUTO) 57 % (42-75); PLATELET COUNT 234 x10^3/uL (130-400); RED BLOOD COUNT 5.34 x10^6/uL (3.82-5.3); RED CELL DISTRIBUTION WIDTH 15.2 % (9.6-15.2)
[2019-12-19] MEDS ORDERED: CEFTRIAXONE PMX 1GM/50ML 50 ML IV ONE (12:00)
--- NOTE | 2019-12-19 13:14 | NUR ---
BREAK RN: PT ALBE TO GET SELF DRESSED AND AMBULATE SAFELY AROUND ROOM. PT REPORTS SHE DOES NOT NEED A RIDE HOME SHE IS TAKING HER ELECTRIC SCOOTER HOME. VS STABLE. NO ACUTE DISTRESS NOTED. PT IS A&O4. PT DISCHARGED.
[2019-12-19 13:15] VITALS: BP 142/51
== END 2019-12-19 13:17 | disposition home or self-care (01) ==
LOC: ED 11:17
DX: S39.012A Strain of muscle, fascia and tendon of lower back, initial encounter (principal); E10.65 Type 1 diabetes mellitus with hyperglycemia; N30.00 Acute cystitis without hematuria; K21.9 Gastro-esophageal reflux disease without esophagitis; F17.210 Nicotine dependence, cigarettes, uncomplicated; E78.5 Hyperlipidemia, unspecified; Z86.718 Personal history of other venous thrombosis and embolism; X58.XXXA Exposure to other specified factors, initial encounter; Y93.89 Activity, other specified; Y92.89 Other specified places as the place of occurrence of the external cause; Y99.8 Other external cause status
CPT/HCPCS: 36415; 73700; 80048; 81001; 82040; 85025; 87086; 93971; 96365; 99283; J0696; J7030; 87106

== ENCOUNTER 2020-01-09 12:45 | Emergency (ER) | payer MEDICARE, MEDICAID ==
[~2020-01-09] VITALS: Ht 160 cm; Wt 56.0 kg
[2020-01-09 13:09] VITALS: BP 148/61
[2020-01-09] MEDS ORDERED: SILVER SULF. CRM 1% , 25GM TP ONE (13:30)
[2020-01-09] MEDS ORDERED: SILVER SULF. CRM 1% , 25GM ONE (14:02)
== END 2020-01-09 14:18 | disposition home or self-care (01) ==
LOC: ED 13:28
DX: T23.17 Burn of first degree of wrist (principal); E11.65 Type 2 diabetes mellitus with hyperglycemia; X19.XXXD Contact with other heat and hot substances, subsequent encounter; Y93.89 Activity, other specified; Y92.89 Other specified places as the place of occurrence of the external cause; Y99.8 Other external cause status
CPT/HCPCS: 82962; 99283

== ENCOUNTER 2020-01-31 09:05 | Inpatient (IN) | payer MEDICARE, MEDICAID ==
[~2020-01-31] VITALS: Ht 160 cm; Wt 55.2 kg
--- NOTE | 2020-01-31 09:27 | NUR ---
Note anjel in EDM - 01/31/20 at 0929 by CATARINO Patient into room, changed into gown. Patient reports that he was told by his primary that he had laboratory results of concern for low blood counts. patient reports no signs or symptoms. Midlevel provider to bedside, assessment complete. Awaiting orders.
--- NOTE | 2020-01-31 09:51 | NUR ---
Patient into room, complains of lower leg pain descending from hip down to knee. Midlevel provider to bedside, patient assessed. Leg pain not associated with increased swelling or color change. Tender to palpation along the sciatic nerve. Awaiting for orers to be placed.
--- NOTE | 2020-01-31 10:14 | NUR ---
Patient reevaluated by primary provider. pathology technician to bedside. Awaiting imaging.
[2020-01-31 10:24] LABS: ALANINE AMINOTRANSFERASE 19 U/L (12-78); ALBUMIN 3.6 g/dL (3.4-5.0); ANION GAP 4 mmol/L (5-15); CHLORIDE 110 mmol/L (98-107); CREATININE 0.95 mg/dL (0.55-1.02)
[2020-01-31 10:26] LABS: ALKALINE PHOSPHATASE 111 U/L (45-117); BILIRUBIN,TOTAL 0.2 mg/dL (0.2-1.0); TOTAL PROTEIN 7.1 g/dL (6.4-8.2)
--- NOTE | 2020-01-31 10:35 | NUR ---
voip network technician completed exam, awaiting reading of imaging.
--- NOTE | 2020-01-31 11:02 | NUR ---
Provider to bedside, updated on imaging results. Provider reviewed patient's anticoagulation medication. Awaiting disposition
[2020-01-31 11:40] LABS: PROTHROMBIN TIME 10.6 Seconds (9.6-11.5)
[2020-01-31 11:41] LABS: BASOPHILS # (AUTO) 0.03 x10^3/uL (0-0.1); BASOPHILS % (AUTO) 1 % (0-1); EOSINOPHILS # (AUTO) 0.08 x10^3/uL (0-0.4); EOSINOPHILS % (AUTO) 1 % (1-7); LYMPHOCYTES # (AUTO) 1.92 x10^3/uL (1-3.4); LYMPHOCYTES % (AUTO) 26 % (22-44); MD NO; MEAN CORPUSCULAR HEMOGLOBIN 27.9 pg (27.0-34.8); MEAN CORPUSCULAR HGB CONC 32.4 g/dL (32.4-35.8); MEAN CORPUSCULAR VOLUME 86.3 fL (80-100); MEAN PLATELET VOLUME 10.1 fL (7.4-10.4); MONOCYTES # (AUTO) 0.52 x10^3/uL (0.2-0.8); MONOCYTES % (AUTO) 7 % (2-9); NEUTROPHILS # (AUTO) 4.84 x10^3/uL (1.8-6.8); NEUTROPHILS % (AUTO) 66 % (42-75); PLATELET COUNT 181 x10^3/uL (130-400); RED BLOOD COUNT 5.13 x10^6/uL (3.82-5.3); RED CELL DISTRIBUTION WIDTH 17.5 % (9.6-15.2)
--- NOTE | 2020-01-31 12:45 | NUR ---
RN to bedside, informed of need for intravenous access. Patient agreeable, hospitalist provider to bedside, instructed on plan of care. patient verbalized understanding. Intravenous access established. Awaiting for hospital bed.
[2020-01-31] MEDS ORDERED: TEMPLATE NON-FORMULARY MED. (Albuterol Sulfate (Proair Hfa) 2 PUFF) INH PRN (13:00)
[2020-01-31] MEDS ORDERED: TEMPLATE NON-FORMULARY MED. (Dulaglutide (Trulicity) 1.5 MG) SQ SCH (13:00)
[2020-01-31] MEDS ORDERED: GUAIFENESIN/COD200MG-20MG/10ML LIQUID PO PRN (13:00)
[2020-01-31] MEDS ORDERED: hydrALAzine 20 MG/ML, 1ML IVPush PRN (13:00)
[2020-01-31] MEDS ORDERED: ACETAMINOPHEN 325 MG TABLET PO PRN (13:00)
[2020-01-31 13:29] LABS: FREE T4 (FREE THYROXINE) 1.16 ng/dL (0.76-1.46)
[2020-01-31 13:43] VITALS: BP 162/78
[2020-01-31] MEDS ORDERED: IPRATROPIUM 0.5 MG/2.5 ML INHA NPPB PRN (14:00)
[2020-01-31] MEDS: CEFTRIAXONE PMX 1GM/50ML 50 ML IV SCH (14:52)
[2020-01-31] MEDS: NICOTINE 21 MG/24 HR PATCH.TD24 TD SCH (14:52)
[2020-01-31] MEDS ORDERED: ALBUTEROL/IPRATROPIUM 2.5MG/0.5MG, 3 ML NPPB SCH (15:00)
[2020-01-31] MEDS: ENOXAPARIN 60 MG/0.6 ML SQ SCH (15:10)
[2020-01-31] MEDS: HYDROcodone/APAP 5/325 TABLET PO PRN ×2 (15:10→21:29)
[2020-01-31] MEDS ORDERED: MAGNESIUM SULFATE PMX 2GM/50ML 50 ML IV ONE (16:00)
[2020-01-31] MEDS ORDERED: ALBUTEROL/IPRATROPIUM 2.5MG/0.5MG, 3 ML NPPB PRN (16:00)
[2020-01-31] MEDS: GABAPENTIN 300 MG CAPSULE PO SCH ×2 (16:34→20:01)
[2020-01-31] MEDS: metFORMIN 500 MG TABLET PO SCH (16:35)
[2020-01-31] MEDS: TIZANIDINE 4MG TABLET PO SCH ×2 (16:35→20:01)
[2020-01-31] MEDS ORDERED: WARFARIN 2 MG TABLET PO-COUM ONE (18:00)
[2020-01-31] MEDS ORDERED: WARFARIN 2.5 MG TABLET PO-COUM ONE (18:00)
[2020-01-31] MEDS ORDERED: WARFARIN 5 MG TABLET PO-COUM SCH (18:00)
[2020-01-31 18:39] VITALS: BP 146/77
[2020-01-31] MEDS: OMEPRAZOLE 20 MG CAPSULE.DR PO SCH (20:01)
[2020-01-31] MEDS: CARVEDILOL 25 MG TABLET PO SCH (20:01)
[2020-01-31] MEDS: LACTULOSE 10 GM/15 ML UDC PO SCH (20:02)
[2020-01-31] MEDS: ATORVASTATIN 40 MG TABLET PO SCH (20:02)
[2020-01-31] MEDS: BUSPIRONE 10 MG TABLET PO SCH (20:02)
[2020-01-31] MEDS: RISPERIDONE 0.5 MG TABLET PO SCH (20:02)
[2020-01-31] MEDS: INSULIN GLARGINE 100 UNITS/ML, PEN SQ-INSULIN SCH (20:13)
[2020-01-31] MEDS: TRAZODONE 50MG TABLET PO SCH (22:32)
[2020-02-01 00:22] VITALS: BP 129/73
[2020-02-01] MEDS: ENOXAPARIN 60 MG/0.6 ML SQ SCH ×2 (02:51→15:52)
[2020-02-01] MEDS: HYDROcodone/APAP 5/325 TABLET PO PRN ×3 (03:28→16:13)
[2020-02-01 04:43] LABS: BASOPHILS # (AUTO) 0.03 x10^3/uL (0-0.1); BASOPHILS % (AUTO) 0 % (0-1); EOSINOPHILS # (AUTO) 0.08 x10^3/uL (0-0.4); EOSINOPHILS % (AUTO) 1 % (1-7); LYMPHOCYTES # (AUTO) 2.78 x10^3/uL (1-3.4); LYMPHOCYTES % (AUTO) 44 % (22-44); MD NO; MEAN CORPUSCULAR HEMOGLOBIN 27.9 pg (27.0-34.8); MEAN CORPUSCULAR HGB CONC 32.7 g/dL (32.4-35.8); MEAN CORPUSCULAR VOLUME 85.5 fL (80-100); MONOCYTES # (AUTO) 0.48 x10^3/uL (0.2-0.8); MONOCYTES % (AUTO) 8 % (2-9); NEUTROPHILS # (AUTO) 2.98 x10^3/uL (1.8-6.8); NEUTROPHILS % (AUTO) 47 % (42-75); PLATELET COUNT 202 x10^3/uL (130-400); RED BLOOD COUNT 4.37 x10^6/uL (3.82-5.3); RED CELL DISTRIBUTION WIDTH 17.6 % (9.6-15.2)
[2020-02-01 04:45] LABS: INTERNATIONAL NORMALIZED RATIO 1.03 (0.93-1.1); PROTHROMBIN TIME 10.9 Seconds (9.6-11.5)
[2020-02-01 04:52] LABS: ANION GAP 4 mmol/L (5-15); CALCIUM 8.5 mg/dL (8.5-10.1); CHLORIDE 108 mmol/L (98-107)
[2020-02-01 05:01] LABS: CREATININE 0.99 mg/dL (0.55-1.02)
[2020-02-01] MEDS: BUSPIRONE 10 MG TABLET PO SCH ×2 (07:24→20:25)
[2020-02-01] MEDS: metFORMIN 500 MG TABLET PO SCH ×2 (07:24→17:03)
[2020-02-01 07:25] VITALS: BP 130/71
[2020-02-01] MEDS: CHOLECALCIFEROL 400 UNITS TABLET PO SCH (07:25)
[2020-02-01] MEDS: SERTRALINE 100MG TABLET PO SCH (07:25)
[2020-02-01] MEDS: CARVEDILOL 25 MG TABLET PO SCH ×2 (07:25→20:26)
[2020-02-01] MEDS: ASCORBIC ACID 500 MG TABLET PO SCH (07:25)
[2020-02-01] MEDS: TIZANIDINE 4MG TABLET PO SCH ×3 (07:26→20:25)
[2020-02-01] MEDS: GABAPENTIN 300 MG CAPSULE PO SCH ×3 (07:26→20:25)
[2020-02-01] MEDS: LACTULOSE 10 GM/15 ML UDC PO SCH ×2 (07:26→20:26)
[2020-02-01] MEDS: SENNA/DOCUSATE TABLET PO SCH (07:26)
[2020-02-01] MEDS: LIDODERM 5% PATCH TD SCH (11:17)
[2020-02-01] MEDS: CEFTRIAXONE PMX 1GM/50ML 50 ML IV SCH (13:19)
[2020-02-01] MEDS: NICOTINE 21 MG/24 HR PATCH.TD24 TD SCH (13:22)
[2020-02-01 14:42] VITALS: BP 127/74
[2020-02-01] MEDS ORDERED: WARFARIN 7.5 MG TABLET PO-COUM ONE (18:00)
[2020-02-01 19:07] VITALS: BP 138/76
[2020-02-01] MEDS: INSULIN GLARGINE 100 UNITS/ML, PEN SQ-INSULIN SCH (20:23)
[2020-02-01] MEDS: ATORVASTATIN 40 MG TABLET PO SCH (20:25)
[2020-02-01] MEDS: OMEPRAZOLE 20 MG CAPSULE.DR PO SCH (20:25)
[2020-02-01] MEDS: TRAZODONE 50MG TABLET PO SCH (20:25)
[2020-02-01] MEDS: RISPERIDONE 0.5 MG TABLET PO SCH (20:26)
[2020-02-01] MEDS: ONDANSETRON 2MG/ML, 2ML IVPush PRN (21:35)
[2020-02-02] MEDS: ENOXAPARIN 60 MG/0.6 ML SQ SCH ×2 (02:49→15:34)
[2020-02-02] MEDS: ONDANSETRON 2MG/ML, 2ML IVPush PRN ×2 (03:00→09:20)
[2020-02-02] MEDS: HYDROcodone/APAP 5/325 TABLET PO PRN ×4 (03:00→21:58)
[2020-02-02 03:04] VITALS: BP 129/73
[2020-02-02 06:27] LABS: INTERNATIONAL NORMALIZED RATIO 1.47 (0.93-1.1); PROTHROMBIN TIME 15.6 Seconds (9.6-11.5)
[2020-02-02] MEDS: ASCORBIC ACID 500 MG TABLET PO SCH (08:04)
[2020-02-02] MEDS: TIZANIDINE 4MG TABLET PO SCH ×3 (08:04→21:20)
[2020-02-02] MEDS: CHOLECALCIFEROL 400 UNITS TABLET PO SCH (08:04)
[2020-02-02] MEDS: metFORMIN 500 MG TABLET PO SCH ×2 (08:04→15:33)
[2020-02-02] MEDS: BUSPIRONE 10 MG TABLET PO SCH ×2 (08:04→21:20)
[2020-02-02] MEDS: GABAPENTIN 300 MG CAPSULE PO SCH ×3 (08:04→21:20)
[2020-02-02] MEDS: SERTRALINE 100MG TABLET PO SCH (08:05)
[2020-02-02] MEDS: LACTULOSE 10 GM/15 ML UDC PO SCH ×2 (08:05→21:00)
[2020-02-02] MEDS: SENNA/DOCUSATE TABLET PO SCH (08:05)
[2020-02-02] MEDS: CARVEDILOL 25 MG TABLET PO SCH ×2 (08:05→21:21)
[2020-02-02] MEDS: TAMSULOSIN 0.4 MG CAP.ER.24H PO SCH (09:20)
[2020-02-02 10:51] VITALS: BP 109/68
[2020-02-02] MEDS: LIDODERM 5% PATCH TD SCH (11:27)
[2020-02-02] MEDS ORDERED: ENOX60DI3 SQ ×2 (12:28)
[2020-02-02] MEDS ORDERED: CEFTRIAXONE PMX 1GM/50ML 50 ML IV SCH (13:00)
[2020-02-02] MEDS: NICOTINE 21 MG/24 HR PATCH.TD24 TD SCH (13:13)
[2020-02-02 14:27] VITALS: BP 96/61
[2020-02-02] MEDS ORDERED: WARFARIN 7.5 MG TABLET PO-COUM ONE (18:00)
[2020-02-02 18:51] VITALS: BP 108/65
[2020-02-02] MEDS: ATORVASTATIN 40 MG TABLET PO SCH (21:20)
[2020-02-02] MEDS: OMEPRAZOLE 20 MG CAPSULE.DR PO SCH (21:20)
[2020-02-02] MEDS: TRAZODONE 50MG TABLET PO SCH (21:20)
[2020-02-02] MEDS: RISPERIDONE 0.5 MG TABLET PO SCH (21:21)
[2020-02-02] MEDS: INSULIN GLARGINE 100 UNITS/ML, PEN SQ-INSULIN SCH (22:10)
[2020-02-03 00:56] VITALS: BP 128/74
[2020-02-03] MEDS: ENOXAPARIN 60 MG/0.6 ML SQ SCH ×2 (04:19→15:51)
[2020-02-03] MEDS: HYDROcodone/APAP 5/325 TABLET PO PRN ×2 (04:23→10:45)
[2020-02-03 05:51] LABS: INTERNATIONAL NORMALIZED RATIO 2.4 (0.93-1.1); PROTHROMBIN TIME 25.7 Seconds (9.6-11.5)
[2020-02-03 07:48] VITALS: BP 109/61
[2020-02-03] MEDS: SERTRALINE 100MG TABLET PO SCH (08:09)
[2020-02-03] MEDS: TIZANIDINE 4MG TABLET PO SCH ×2 (08:09→15:51)
[2020-02-03] MEDS: BUSPIRONE 10 MG TABLET PO SCH (08:09)
[2020-02-03] MEDS: GABAPENTIN 300 MG CAPSULE PO SCH ×2 (08:09→15:51)
[2020-02-03] MEDS: CHOLECALCIFEROL 400 UNITS TABLET PO SCH (08:09)
[2020-02-03] MEDS: CARVEDILOL 25 MG TABLET PO SCH (08:09)
[2020-02-03] MEDS: metFORMIN 500 MG TABLET PO SCH ×2 (08:09→15:51)
[2020-02-03] MEDS: LACTULOSE 10 GM/15 ML UDC PO SCH (08:10)
[2020-02-03] MEDS: SENNA/DOCUSATE TABLET PO SCH (08:10)
[2020-02-03] MEDS: TAMSULOSIN 0.4 MG CAP.ER.24H PO SCH (08:10)
[2020-02-03] MEDS: ASCORBIC ACID 500 MG TABLET PO SCH (08:10)
[2020-02-03] MEDS ORDERED: ARTIFICIAL TEARS 15 DROP/ML BOTTLE EACHEYE PRN (08:30)
[2020-02-03] MEDS: DICYCLOMINE 10 MG CAPSULE PO SCH ×2 (10:45→15:51)
[2020-02-03] MEDS: LIDODERM 5% PATCH TD SCH (10:46)
[2020-02-03] MEDS ORDERED: LIDO700A20 TD (12:30)
[2020-02-03] MEDS ORDERED: NICO-487 TD (12:30)
[2020-02-03] MEDS ORDERED: WARF5TAB PO (12:30)
[2020-02-03] MEDS ORDERED: ENOX60DI3 SQ (12:30)
[2020-02-03] MEDS ORDERED: DICY10CA3 PO (12:30)
[2020-02-03 12:48] VITALS: BP 134/61
[2020-02-03] MEDS: NICOTINE 21 MG/24 HR PATCH.TD24 TD SCH (13:32)
[2020-02-03] MEDS ORDERED: WARFARIN 2.5 MG TABLET PO-COUM ONE (16:41)
[2020-02-03] MEDS ORDERED: LIDODERM REMOVE PATCH NOTE XX SCH (22:30)
== END 2020-02-03 17:13 | disposition home health service (06) | DRG 300 ==
LOC: ED 09:37 → EDIP 12:45 → 3N 13:35
PROVIDERS: ADMIT Hospitalist; ATTEND Hospitalist
DX: I82.412 Acute embolism and thrombosis of left femoral vein (principal); N39.0 Urinary tract infection, site not specified; I82.432 Acute embolism and thrombosis of left popliteal vein; K27.9 Peptic ulcer, site unspecified, unspecified as acute or chronic, without hemorrhage or perforation; K21.9 Gastro-esophageal reflux disease without esophagitis; J44.9 Chronic obstructive pulmonary disease, unspecified; M54.42 Lumbago with sciatica, left side; G89.29 Other chronic pain; F17.210 Nicotine dependence, cigarettes, uncomplicated; F32.9 Major depressive disorder, single episode, unspecified; H40.9 Unspecified glaucoma; I10 Essential (primary) hypertension; K58.1 Irritable bowel syndrome with constipation; M25.511 Pain in right shoulder; E11.9 Type 2 diabetes mellitus without complications; Z79.01 Long term (current) use of anticoagulants; Z82.3 Family history of stroke; Z86.711 Personal history of pulmonary embolism; Z86.718 Personal history of other venous thrombosis and embolism; Z87.11 Personal history of peptic ulcer disease; Z99.3 Dependence on wheelchair; D17.9 Benign lipomatous neoplasm, unspecified
CPT/HCPCS: 36415; 70450; 80048; 80053; 82962; 83036; 83735; 84100; 84439; 84443; 85025; 85610; 94640; 99285; G0378; J0696; J1650; J2405; J1815; J3475

== ENCOUNTER 2020-03-04 14:57 | Observation (INO) | payer MEDICARE, MEDICAID ==
[~2020-03-04] VITALS: Ht 160 cm; Wt 56.4 kg
[~2020-03-04 14:57] MED LIST changes: +DICY10CA3 PO; +HYDR-3246 PO; -HYDR-36 PO; +LIDO700A20 TD; +NICO-487 TD; +WARF5TAB PO
--- NOTE | 2020-03-04 15:10 | NUR ---
BIB [facility] FROM HOME C/O CP, GILMAN, NAUSEA SINCE LAST NOC. CP WORSE WITH DEEP BREATH. PT DENIES COUGH. HX OF ASTHMA, COPD AND CHRONIC EPIGASTRIC PAIN FROM GERD. PT ABLE TO SPEAK IN FULL SENTENCES. NAD NOTED AT THIS TIME. VSS. AWAITING ERMD EVAL.
[2020-03-04] MEDS ORDERED: MAALOX/HYOSCYAMINE/LIDOCAINE 45 ML BTL ONE (15:19)
[2020-03-04] MEDS ORDERED: MAALOX/HYOSCYAMINE/LIDOCAINE 45 ML BTL PO ONE (15:30)
--- NOTE | 2020-03-04 15:42 | NUR ---
REPORT TO KORTNEY DONALDSON.
[2020-03-04] MEDS ORDERED: APIX5TAB PO (15:49)
[2020-03-04] MEDS ORDERED: LISINOPRIL (15:49)
[2020-03-04] MEDS ORDERED: SINGULAIR (15:49)
[2020-03-04] MEDS ORDERED: AMLODIPINE PO (15:49)
[2020-03-04 16:26] LABS: BASOPHILS # (AUTO) 0.06 x10^3/uL (0-0.1); BASOPHILS % (AUTO) 0 % (0-1); EOSINOPHILS # (AUTO) 0.12 x10^3/uL (0-0.4); EOSINOPHILS % (AUTO) 1 % (1-7); LYMPHOCYTES % (AUTO) 23 % (22-44); MD NO; MEAN CORPUSCULAR HEMOGLOBIN 28.6 pg (27.0-34.8); MEAN CORPUSCULAR VOLUME 86.8 fL (80-100); MEAN PLATELET VOLUME 9.5 fL (7.4-10.4); MONOCYTES # (AUTO) 0.56 x10^3/uL (0.2-0.8); MONOCYTES % (AUTO) 4 % (2-9); NEUTROPHILS # (AUTO) 9.53 x10^3/uL (1.8-6.8); NEUTROPHILS % (AUTO) 71 % (42-75); PLATELET COUNT 235 x10^3/uL (130-400); RED BLOOD COUNT 5.13 x10^6/uL (3.82-5.3); RED CELL DISTRIBUTION WIDTH 16.1 % (9.6-15.2)
[2020-03-04 16:35] LABS: INTERNATIONAL NORMALIZED RATIO 1.18 (0.93-1.1); PROTHROMBIN TIME 12.5 Seconds (9.6-11.5)
[2020-03-04 16:36] LABS: ALANINE AMINOTRANSFERASE 23 U/L (12-78); ALBUMIN 3.7 g/dL (3.4-5.0); ANION GAP 6 mmol/L (5-15); CALCIUM 9.2 mg/dL (8.5-10.1); CHLORIDE 103 mmol/L (98-107); CREATININE 0.89 mg/dL (0.55-1.02)
[2020-03-04 16:40] LABS: ALKALINE PHOSPHATASE 101 U/L (45-117); BILIRUBIN,TOTAL 0.5 mg/dL (0.2-1.0); TOTAL PROTEIN 7.4 g/dL (6.4-8.2); TROPONIN I < 0.015 ng/mL (0.000-0.045)
[2020-03-04] MEDS ORDERED: ENOXAPARIN 60 MG/0.6 ML SQ ONE (17:00)
[2020-03-04] MEDS ORDERED: ENOXAPARIN 60 MG/0.6 ML ONE (17:47)
[2020-03-04] MEDS ORDERED: ASPIRIN 81 MG TABLET CHEW ONE (18:06)
[2020-03-04] MEDS ORDERED: ASPIRIN 81 MG TABLET CHEW PO ONE (18:30)
[2020-03-04] MEDS ORDERED: NICOTINE 14MG/24 HR PATCH.TD24 TD SCH (19:00)
[2020-03-04] MEDS ORDERED: NITROGLYCERIN 0.4 MG BOTTLE (25 TABS) SL PRN (19:00)
[2020-03-04] MEDS ORDERED: ACETAMINOPHEN 325 MG TABLET PO PRN (19:00)
[2020-03-04] MEDS ORDERED: POLYETHYLENE GLYCOL 17 GM PACKET PO PRN (19:00)
[2020-03-04] MEDS ORDERED: BISACODYL 10 MG SUPP PR PRN (19:00)
[2020-03-04] MEDS ORDERED: HYDROmorphone 2 MG/ML, 1ML IVPush PRN (19:00)
[2020-03-04] MEDS ORDERED: ONDANSETRON ODT 4 MG PO PRN (19:00)
[2020-03-04] MEDS: Enoxaparin 1 mg/kg protocol SQ SCH (19:00)
[2020-03-04] MEDS ORDERED: ALBUTEROL SULFATE 2.5 MG/3 ML NPPB PRN (20:00)
[2020-03-04 20:10] VITALS: BP 153/79
[2020-03-04] MEDS ORDERED: WARFARIN 7.5 MG TABLET PO-COUM ONE (20:30)
[2020-03-04] MEDS: INSULIN LISPRO 100 UNITS/ML, PEN SQ-INSULIN SCH (20:50)
[2020-03-04] MEDS ORDERED: ATORVASTATIN 40 MG TABLET PO SCH (21:00)
[2020-03-04] MEDS ORDERED: GABAPENTIN 300 MG CAPSULE PO SCH (21:00)
[2020-03-04] MEDS ORDERED: APIXABAN 5 MG TABLET PO SCH (21:00)
[2020-03-04] MEDS ORDERED: OMEPRAZOLE 20 MG CAPSULE.DR PO SCH (21:00)
[2020-03-04] MEDS: CARVEDILOL 25 MG TABLET PO SCH (21:26)
[2020-03-04] MEDS: SODIUM CHLORIDE FLUSH 10ML SYR IVF SCH (21:27)
[2020-03-04 21:30] VITALS: BP 138/72
[2020-03-04] MEDS: BUSPIRONE 10 MG TABLET PO SCH (21:56)
[2020-03-04] MEDS ORDERED: GABA100C PO (22:07)
[2020-03-04] MEDS ORDERED: TRAZODONE 50MG TABLET PO PRN (22:30)
[2020-03-04 22:39] LABS: TROPONIN I < 0.015 ng/mL (0.000-0.045)
[2020-03-04] MEDS: GABAPENTIN 100 MG CAPSULE PO SCH (22:42)
[2020-03-05 02:15] VITALS: BP 120/73
[2020-03-05] MEDS ORDERED: HYDROcodone/APAP 5/325 TABLET PO ONE (02:30)
[2020-03-05 04:28] LABS: BASOPHILS # (AUTO) 0.03 x10^3/uL (0-0.1); BASOPHILS % (AUTO) 1 % (0-1); EOSINOPHILS # (AUTO) 0.14 x10^3/uL (0-0.4); EOSINOPHILS % (AUTO) 2 % (1-7); LYMPHOCYTES # (AUTO) 2.67 x10^3/uL (1-3.4); LYMPHOCYTES % (AUTO) 42 % (22-44); MD NO; MEAN CORPUSCULAR HEMOGLOBIN 28.6 pg (27.0-34.8); MEAN CORPUSCULAR HGB CONC 32.9 g/dL (32.4-35.8); MEAN CORPUSCULAR VOLUME 86.7 fL (80-100); MEAN PLATELET VOLUME 9.4 fL (7.4-10.4); MONOCYTES # (AUTO) 0.55 x10^3/uL (0.2-0.8); MONOCYTES % (AUTO) 9 % (2-9); NEUTROPHILS # (AUTO) 3.04 x10^3/uL (1.8-6.8); NEUTROPHILS % (AUTO) 47 % (42-75); PLATELET COUNT 214 x10^3/uL (130-400); RED BLOOD COUNT 4.71 x10^6/uL (3.82-5.3); RED CELL DISTRIBUTION WIDTH 16.2 % (9.6-15.2)
[2020-03-05 04:31] LABS: ANION GAP 5 mmol/L (5-15); CALCIUM 8.7 mg/dL (8.5-10.1); CHLORIDE 108 mmol/L (98-107); CHOLESTEROL, TOTAL 104 mg/dL (140-239); CREATININE 0.87 mg/dL (0.55-1.02); TRIGLYCERIDES 121 mg/dL (50-200); VLDL CHOLESTEROL 24 mg/dL (0-25)
[2020-03-05 04:32] LABS: INTERNATIONAL NORMALIZED RATIO 1.35 (0.93-1.1); PROTHROMBIN TIME 14.4 Seconds (9.6-11.5)
[2020-03-05 04:35] LABS: CHOL/HDL RATIO 2.7; HDL CHOL % 37 % (28-40); HDL CHOLESTEROL (DIRECT) 38 mg/dL (40-60); LDL CHOLESTEROL,CALCULATED 42 mg/dL (54-169); LDL/HDL RATIO 1.1 (0.5-3.0); TROPONIN I < 0.015 ng/mL (0.000-0.045)
[2020-03-05] MEDS ORDERED: ASPIRIN 81 MG TABLET EC PO SCH (06:00)
[2020-03-05 06:26] VITALS: BP 106/67
[2020-03-05] MEDS: INSULIN LISPRO 100 UNITS/ML, PEN SQ-INSULIN SCH ×2 (07:00→11:00)
[2020-03-05] MEDS: Enoxaparin 1 mg/kg protocol SQ SCH (07:00)
[2020-03-05] MEDS ORDERED: ACETAMINOPHEN 325 MG TABLET PO PRN (07:30)
[2020-03-05] MEDS ORDERED: ENOXAPARIN 60 MG/0.6 ML SQ SCH (08:00)
[2020-03-05] MEDS: BUSPIRONE 10 MG TABLET PO SCH (08:09)
[2020-03-05] MEDS: GABAPENTIN 100 MG CAPSULE PO SCH (08:10)
[2020-03-05] MEDS: SODIUM CHLORIDE FLUSH 10ML SYR IVF SCH (08:10)
[2020-03-05] MEDS: CARVEDILOL 25 MG TABLET PO SCH (08:10)
[2020-03-05] MEDS ORDERED: REGADENOSON 0.4 MG/5 ML SYRINGE ONE (08:20)
[2020-03-05] MEDS ORDERED: LACTOBACILLUS CHEW TABLET PO SCH (09:00)
[2020-03-05] MEDS ORDERED: SENNA/DOCUSATE TABLET PO SCH (09:00)
[2020-03-05] MEDS ORDERED: NICO-486 TD (09:05)
[2020-03-05] MEDS ORDERED: ACID1TAB7 PO (09:05)
[2020-03-05] MEDS ORDERED: ENOX60SY5 SQ (12:02)
[2020-03-05] MEDS ORDERED: WARF5TAB PO (12:02)
[2020-03-05 13:20] VITALS: BP 115/73
[2020-03-05] MEDS ORDERED: WARFARIN 3 MG TABLET PO-COUM ONE (18:00)
== END 2020-03-05 16:02 | disposition home or self-care (01) ==
LOC: ED 18:10 → INTOOBSV 18:30 → EDIP 18:30 → 5SO 19:38
PROVIDERS: ADMIT Internal Medicine; ATTEND Internal Medicine
DX: R07.89 Other chest pain (principal); E11.65 Type 2 diabetes mellitus with hyperglycemia; E78.5 Hyperlipidemia, unspecified; J44.9 Chronic obstructive pulmonary disease, unspecified; F17.210 Nicotine dependence, cigarettes, uncomplicated; D72.829 Elevated white blood cell count, unspecified; D68.59 Other primary thrombophilia; G47.00 Insomnia, unspecified; I10 Essential (primary) hypertension; I82.402 Acute embolism and thrombosis of unspecified deep veins of left lower extremity; F43.10 Post-traumatic stress disorder, unspecified; Z79.01 Long term (current) use of anticoagulants; Z79.4 Long term (current) use of insulin; Z86.711 Personal history of pulmonary embolism; Z96.659 Presence of unspecified artificial knee joint
CPT/HCPCS: 36415; 71045; 78452; 80048; 80053; 80061; 82962; 83036; 83690; 83880; 84484; 85025; 85610; 85730; 93005; 93017; 96372; 96374; 99285; A9502; G0378; J1170; J1650; J2785

== ENCOUNTER 2020-04-04 15:10 | Emergency (ER) | payer MEDICARE, MEDICAID ==
[~2020-04-04 15:10] MED LIST changes: +ACID1TAB7 PO; +AMLODIPINE PO; +APIX5TAB PO; +ENOX60SY5 SQ; +GABA100C PO; +LISINOPRIL; +NICO-486 TD; +SINGULAIR; -WARF5TAB PO; +WARF5TAB2 PO
[2020-04-04 15:11] VITALS: BP 159/52
[2020-04-04] MEDS ORDERED: ALUMINUM/MAG/SIMETHICONE 30 ML UDC PO PRN (15:30)
[2020-04-04] MEDS ORDERED: ALUMINUM/MAG/SIMETHICONE 30 ML UDC ONE (15:49)
[2020-04-04 16:31] LABS: INTERNATIONAL NORMALIZED RATIO 1.93 (0.93-1.1); PROTHROMBIN TIME 20.6 Seconds (9.6-11.5)
== END 2020-04-04 17:00 | disposition home or self-care (01) ==
LOC: ED 15:30
DX: S90.32XA Contusion of left foot, initial encounter (principal); F17.200 Nicotine dependence, unspecified, uncomplicated; Z79.01 Long term (current) use of anticoagulants; V89.2XXA Person injured in unspecified motor-vehicle accident, traffic, initial encounter; Y93.89 Activity, other specified; Y92.410 Unspecified street and highway as the place of occurrence of the external cause; Y99.8 Other external cause status
CPT/HCPCS: 36415; 85610; 99284

== ENCOUNTER 2020-04-24 10:55 | Emergency (ER) | payer MEDICARE, MEDICAID ==
[~2020-04-24] VITALS: Ht 160 cm; Wt 56.5 kg
[2020-04-24 11:49] LABS: BASOPHILS # (AUTO) 0.04 x10^3/uL (0-0.1); BASOPHILS % (AUTO) 0 % (0-1); EOSINOPHILS # (AUTO) 0.12 x10^3/uL (0-0.4); EOSINOPHILS % (AUTO) 1 % (1-7); LYMPHOCYTES # (AUTO) 2.83 x10^3/uL (1-3.4); LYMPHOCYTES % (AUTO) 25 % (22-44); MD NO; MEAN CORPUSCULAR HEMOGLOBIN 28.5 pg (27.0-34.8); MEAN CORPUSCULAR HGB CONC 31.9 g/dL (32.4-35.8); MEAN CORPUSCULAR VOLUME 89.3 fL (80-100); MEAN PLATELET VOLUME 9.1 fL (7.4-10.4); MONOCYTES # (AUTO) 0.85 x10^3/uL (0.2-0.8); MONOCYTES % (AUTO) 8 % (2-9); NEUTROPHILS # (AUTO) 7.57 x10^3/uL (1.8-6.8); NEUTROPHILS % (AUTO) 66 % (42-75); PLATELET COUNT 252 x10^3/uL (130-400); RED BLOOD COUNT 4.95 x10^6/uL (3.82-5.3); RED CELL DISTRIBUTION WIDTH 14.8 % (9.6-15.2)
[2020-04-24] MEDS ORDERED: DOCUSATE 50 MG/5 ML, 10ML UDC ONE (11:54)
[2020-04-24 11:56] LABS: INTERNATIONAL NORMALIZED RATIO 1.42 (0.93-1.1); PROTHROMBIN TIME 15.1 Seconds (9.6-11.5)
[2020-04-24 12:00] LABS: ALBUMIN 3.3 g/dL (3.4-5.0); ANION GAP 6 mmol/L (5-15); CALCIUM 8.4 mg/dL (8.5-10.1); CHLORIDE 107 mmol/L (98-107)
[2020-04-24] MEDS ORDERED: DOCUSATE 50 MG/5 ML ORAL SOL OTIC ONE (12:00)
[2020-04-24 12:05] LABS: ALANINE AMINOTRANSFERASE 27 U/L (12-78); ALKALINE PHOSPHATASE 121 U/L (45-117); BILIRUBIN,TOTAL 0.4 mg/dL (0.2-1.0); CREATININE 0.96 mg/dL (0.55-1.02)
--- NOTE | 2020-04-24 12:05 | NUR ---
assumed care of pt. pt to ed w/ mult complaints. "Ican't hear out of my right ear". constipation, last bm 4 days ago, tramadol at home and doesnt take stool softener abd snt. given colace per dec. fungal infection in groin-red, foul smell in skin folds no issues urinating. also c/o SOB. hx copd, current smoker. swelling in bilat legs, hx dvts. Bruising to top of R foot, dropped can on it several days ago. c/o dizziness when walking. zahira in room for zoltan. as
[2020-04-24] MEDS ORDERED: NYSTATIN TOPICAL POWDER 15GM TP PRN (12:30)
--- NOTE | 2020-04-24 12:40 | NUR ---
ear irrigation in progress. as
--- NOTE | 2020-04-24 13:05 | NUR ---
REPORT RC'VD FROM JOSE DANIEL SHEETS. BREAD JOCKEY AT BS FOR FOOT XR.
--- NOTE | 2020-04-24 13:06 | NUR ---
nystatin obtained from pharm. report to vargas victoria. as
[2020-04-24] MEDS ORDERED: CARBAMIDE PEROXIDE EAR DROPS 6.5%, 15ML ONE (13:52)
[2020-04-24] MEDS ORDERED: CARBAMIDE PEROXIDE EAR DROPS 6.5%, 15ML LEFT EAR STA (13:55)
--- NOTE | 2020-04-24 14:00 | NUR ---
PT REQUESTS TO APPLY NYSTATIN POWDER HERSELF AT HOME. STILL C/O THROBBING TO L EAR; HELP DESK OPERATOR WAS UNABLE TO REMOVE ALL EAR WAX. DEBROX DROPS INSTILLED, WILL TRY IRRIGATING AGAIN.
[2020-04-24 14:20] VITALS: BP 171/63
--- NOTE | 2020-04-24 14:20 | NUR ---
DEBROX EAR DROPS INSTILLED INTO L EAR AND EAR IRRIGATED AGAIN WITH NS BY RN AND 1ST GRADE TEACHER. INSTRUCTED PT ON USE OF EAR DROPS AT HOME.
--- NOTE | 2020-04-24 14:40 | NUR ---
D/C INSTRUCTIONS, MEDS & F/U APPT RV'WD WITH PT, SHE VERBALIZES UNDERSTANDING. NYSTATIN POWDER AND DEBROX EAR DROPS SENT WITH PT. PT LEFT ED VIA HER MOTORIZED WC; WILL TAKE MT CAB HOME.
== END 2020-04-24 14:46 | disposition home or self-care (01) ==
LOC: ED 11:46
DX: S90.121A Contusion of right lesser toe(s) without damage to nail, initial encounter (principal); B37.9 Candidiasis, unspecified; H61.22 Impacted cerumen, left ear; I10 Essential (primary) hypertension; J44.9 Chronic obstructive pulmonary disease, unspecified; G89.29 Other chronic pain; E78.5 Hyperlipidemia, unspecified; K21.9 Gastro-esophageal reflux disease without esophagitis; E11.65 Type 2 diabetes mellitus with hyperglycemia; F17.200 Nicotine dependence, unspecified, uncomplicated; R94.31 Abnormal electrocardiogram [ECG] [EKG]; Z90.49 Acquired absence of other specified parts of digestive tract; Z86.718 Personal history of other venous thrombosis and embolism; X58.XXXA Exposure to other specified factors, initial encounter; Y93.89 Activity, other specified; Y92.89 Other specified places as the place of occurrence of the external cause; Y99.8 Other external cause status
CPT/HCPCS: 36415; 71045; 80053; 82962; 85025; 85610; 93005; 99285

== ENCOUNTER 2020-06-01 10:12 | Observation (INO) | payer MEDICARE, MEDICAID ==
[~2020-06-01] VITALS: Ht 160 cm; Wt 58.8 kg
--- NOTE | 2020-06-01 10:54 | NUR ---
BILATERAL LEG PAIN FOR 3 DAYS WITH INTERMITTENT CP. PT REPORTS HX OF DVT'S. PT SENT HERE BY DR. LEON. PT IN BED IN GOWN WITH CONT TECHNICAL SERVICES REP, SPO2, BP Q 30 MIN, SIDE RAILS UP X2, CALL LIGHT IN REACH. 20 IV STARTED IN RIGHT HAND. WENT OVWER POC FROM ORDER LIST AGREES TO POC.
[2020-06-01] MEDS ORDERED: HYDROmorphone 1 MG/ML, 1ML INJ ONE ×2 (10:59→12:49)
[2020-06-01] MEDS ORDERED: ONDANSETRON 2MG/ML, 2ML ONE (10:59)
[2020-06-01] MEDS ORDERED: ONDANSETRON 2MG/ML, 2ML IVPush ONE (11:00)
[2020-06-01] MEDS: HYDROmorphone 1 MG/ML, 1ML INJ IVPush PRN ×2 (11:06→12:51)
--- NOTE | 2020-06-01 11:15 | NUR ---
LAB IN ROOM
[2020-06-01] MEDS ORDERED: SODIUM CHLORIDE FLUSH 10ML SYR IVF ONE (11:30)
[2020-06-01 11:40] LABS: BASOPHILS # (AUTO) 0.03 x10^3/uL (0-0.1); BASOPHILS % (AUTO) 0 % (0-1); EOSINOPHILS # (AUTO) 0.12 x10^3/uL (0-0.4); EOSINOPHILS % (AUTO) 2 % (1-7); LYMPHOCYTES # (AUTO) 2.11 x10^3/uL (1-3.4); LYMPHOCYTES % (AUTO) 28 % (22-44); MD NO; MEAN CORPUSCULAR HEMOGLOBIN 28.2 pg (27.0-34.8); MEAN CORPUSCULAR HGB CONC 32.5 g/dL (32.4-35.8); MEAN CORPUSCULAR VOLUME 86.9 fL (80-100); MEAN PLATELET VOLUME 8.9 fL (7.4-10.4); MONOCYTES % (AUTO) 7 % (2-9); NEUTROPHILS # (AUTO) 4.87 x10^3/uL (1.8-6.8); NEUTROPHILS % (AUTO) 64 % (42-75); PLATELET COUNT 245 x10^3/uL (130-400); RED BLOOD COUNT 5.33 x10^6/uL (3.82-5.3); RED CELL DISTRIBUTION WIDTH 14.9 % (9.6-15.2)
[2020-06-01 11:42] LABS: ALBUMIN 3.6 g/dL (3.4-5.0); ANION GAP 6 mmol/L (5-15); CALCIUM 9.7 mg/dL (8.5-10.1); CHLORIDE 107 mmol/L (98-107)
--- NOTE | 2020-06-01 12:20 | NUR ---
Pain is 7/10, improved with medication, down from 10/10. Patient respirations even unlabored. Resting comfortably. Nothing needed at this time.
--- NOTE | 2020-06-01 12:54 | NUR ---
TASK RN: PT C/O SHARP THROBBING LEFT CHEST PAIN RADIATING TO LEFT EAR. MEDICATED NOTED ON MAR FOR SAME
[2020-06-01 14:44] VITALS: BP 133/61
[2020-06-01] MEDS ORDERED: ONDANSETRON 2MG/ML, 2ML IVPush PRN (15:00)
[2020-06-01] MEDS ORDERED: NICOTINE 14MG/24 HR PATCH.TD24 TD SCH (15:00)
[2020-06-01] MEDS ORDERED: PLEASE ENTER MEASURED WEIGHT MC SCH (15:30)
[2020-06-01 15:47] LABS: INTERNATIONAL NORMALIZED RATIO 2.04 (0.93-1.1); PROTHROMBIN TIME 21.2 Seconds (9.6-11.5)
[2020-06-01 15:55] LABS: TROPONIN I < 0.015 ng/mL (0.000-0.045)
[2020-06-01] MEDS ORDERED: OMNIPAQUE 350 MG/ML, 75ML BOTTLE ONE (16:23)
[2020-06-01] MEDS: ENOXAPARIN 60 MG/0.6 ML SQ SCH (16:47)
[2020-06-01] MEDS: GABAPENTIN 100 MG CAPSULE PO SCH ×2 (16:47→20:24)
[2020-06-01] MEDS: NICOTINE 14MG/24 HR PATCH.TD24 TD SCH (16:48)
[2020-06-01] MEDS: INSULIN LISPRO 100 UNITS/ML, PEN SQ-INSULIN SCH ×2 (17:20→20:53)
[2020-06-01 20:16] VITALS: BP 120/60
[2020-06-01] MEDS: BUSPIRONE 10 MG TABLET PO SCH (20:24)
[2020-06-01] MEDS: OMEPRAZOLE 20 MG CAPSULE.DR PO SCH (20:24)
[2020-06-01] MEDS: CARVEDILOL 25 MG TABLET PO SCH (20:24)
[2020-06-01] MEDS: ATORVASTATIN 40 MG TABLET PO SCH (20:24)
[2020-06-01] MEDS: HYDROcodone/APAP 5/325 TABLET PO PRN (20:53)
[2020-06-01 20:57] LABS: TROPONIN I < 0.015 ng/mL (0.000-0.045)
[2020-06-02] MEDS: HYDROcodone/APAP 5/325 TABLET PO PRN ×3 (04:17→22:13)
[2020-06-02] MEDS: ENOXAPARIN 60 MG/0.6 ML SQ SCH ×2 (04:17→16:53)
[2020-06-02 04:18] VITALS: BP 120/68
[2020-06-02 06:12] LABS: BASOPHILS # (AUTO) 0.04 x10^3/uL (0-0.1); BASOPHILS % (AUTO) 1 % (0-1); EOSINOPHILS # (AUTO) 0.18 x10^3/uL (0-0.4); EOSINOPHILS % (AUTO) 4 % (1-7); LYMPHOCYTES # (AUTO) 2.64 x10^3/uL (1-3.4); LYMPHOCYTES % (AUTO) 51 % (22-44); MD NO; MEAN CORPUSCULAR HEMOGLOBIN 28.3 pg (27.0-34.8); MEAN CORPUSCULAR HGB CONC 32.4 g/dL (32.4-35.8); MEAN CORPUSCULAR VOLUME 87.4 fL (80-100); MEAN PLATELET VOLUME 9.5 fL (7.4-10.4); MONOCYTES # (AUTO) 0.51 x10^3/uL (0.2-0.8); MONOCYTES % (AUTO) 10 % (2-9); NEUTROPHILS # (AUTO) 1.79 x10^3/uL (1.8-6.8); NEUTROPHILS % (AUTO) 35 % (42-75); PLATELET COUNT 189 x10^3/uL (130-400)
[2020-06-02 06:13] LABS: ANION GAP 5 mmol/L (5-15); CALCIUM 8.5 mg/dL (8.5-10.1); CHLORIDE 107 mmol/L (98-107); CREATININE 1.06 mg/dL (0.55-1.02)
[2020-06-02] MEDS: INSULIN LISPRO 100 UNITS/ML, PEN SQ-INSULIN SCH ×4 (08:04→21:34)
[2020-06-02] MEDS: GABAPENTIN 100 MG CAPSULE PO SCH ×3 (08:04→21:32)
[2020-06-02] MEDS: CARVEDILOL 25 MG TABLET PO SCH ×2 (08:04→21:40)
[2020-06-02] MEDS: BUSPIRONE 10 MG TABLET PO SCH ×2 (08:04→21:32)
[2020-06-02 08:36] VITALS: BP 110/75
[2020-06-02] MEDS ORDERED: ENOX60DI3 SQ (12:39)
[2020-06-02 15:06] VITALS: BP 122/75
[2020-06-02] MEDS: metFORMIN 850 MG TABLET PO SCH (16:53)
[2020-06-02] MEDS: NICOTINE 14MG/24 HR PATCH.TD24 TD SCH (16:53)
[2020-06-02] MEDS: ATORVASTATIN 40 MG TABLET PO SCH (21:32)
[2020-06-02] MEDS: OMEPRAZOLE 20 MG CAPSULE.DR PO SCH (21:32)
[2020-06-02 21:43] VITALS: BP 131/77
[2020-06-02] MEDS ORDERED: SIMETHICONE 125 MG CHEW TAB PO PRN (22:00)
[2020-06-03 00:46] VITALS: BP 129/78
[2020-06-03 02:23] LABS: OCCULT BLOOD NEGATIVE (NEGATIVE)
[2020-06-03 03:19] LABS: CLOSTRIDIUM DIFFICILE ANTIGEN NEGATIVE; CLOSTRIDIUM DIFFICILE TOXIN NEGATIVE (Negative)
[2020-06-03] MEDS: ENOXAPARIN 60 MG/0.6 ML SQ SCH ×2 (05:47→16:45)
[2020-06-03] MEDS: HYDROcodone/APAP 5/325 TABLET PO PRN (06:19)
[2020-06-03 07:22] VITALS: BP 127/82
[2020-06-03] MEDS: INSULIN LISPRO 100 UNITS/ML, PEN SQ-INSULIN SCH ×3 (08:00→16:45)
[2020-06-03] MEDS: metFORMIN 850 MG TABLET PO SCH ×2 (08:37→16:45)
[2020-06-03] MEDS: CARVEDILOL 25 MG TABLET PO SCH (08:37)
[2020-06-03] MEDS: GABAPENTIN 100 MG CAPSULE PO SCH ×2 (08:37→16:45)
[2020-06-03] MEDS: BUSPIRONE 10 MG TABLET PO SCH (08:38)
[2020-06-03 11:14] VITALS: BP 105/64
[2020-06-03 12:30] VITALS: BP 111/72
[2020-06-03] MEDS: NICOTINE 14MG/24 HR PATCH.TD24 TD SCH (15:52)
== END 2020-06-03 17:53 | disposition home health service (06) ==
LOC: ED 11:45 → EDIP 12:20 → INTOOBSV 12:20 → 5SO 13:53
PROVIDERS: ADMIT Internal Medicine; ATTEND Internal Medicine
DX: I82.412 Acute embolism and thrombosis of left femoral vein (principal); N39.0 Urinary tract infection, site not specified; D68.59 Other primary thrombophilia; F11.20 Opioid dependence, uncomplicated; I82.442 Acute embolism and thrombosis of left tibial vein; J44.9 Chronic obstructive pulmonary disease, unspecified; M54.32 Sciatica, left side; K27.9 Peptic ulcer, site unspecified, unspecified as acute or chronic, without hemorrhage or perforation; E11.9 Type 2 diabetes mellitus without complications; E78.5 Hyperlipidemia, unspecified; F17.200 Nicotine dependence, unspecified, uncomplicated; F32.9 Major depressive disorder, single episode, unspecified; F43.10 Post-traumatic stress disorder, unspecified; R07.89 Other chest pain; G89.29 Other chronic pain; H40.9 Unspecified glaucoma; I10 Essential (primary) hypertension; I25.2 Old myocardial infarction; Z86.711 Personal history of pulmonary embolism; Z99.3 Dependence on wheelchair; Z79.899 Other long term (current) drug therapy; Z79.4 Long term (current) use of insulin
CPT/HCPCS: 36415; 71045; 71275; 80048; 82040; 82272; 82962; 84443; 84484; 85025; 85610; 87324; 93005; 93306; 93971; 96372; 96374; 96375; 96376; 97162; 99285; G0378; J1170; J1650; J1815; J2405; Q9967

== ENCOUNTER 2020-06-29 14:40 | Emergency (ER) | payer MEDICARE, MEDICAID ==
[~2020-06-29] VITALS: Ht 162.6 cm; Wt 60.0 kg
[~2020-06-29 14:40] MED LIST changes: +ASCO100018 PO; -ASCO10004 PO; -PANT20TA3 PO; +PANT20TA4 PO
--- NOTE | 2020-06-29 15:06 | NUR ---
REPORT RECEIVED FROM KORTNEY MOREJON. PLAN OF CARE DISCUSSED
[2020-06-29] MEDS ORDERED: SODIUM CHLORIDE 0.9% 1,000ML IVBOLUS ONE ×2 (15:30→17:00)
--- NOTE | 2020-06-29 15:30 | NUR ---
IVF STARTED. PATIENT A&OX4, VSS, NADN AT THIS TIME. PATIENT STATES SHE IS FEELING BETTER, BP IS NORMOTENSIVE. ALL MONITORING IN PLACE. AFIB PRESENT ON METEOROLOGIST LIAISON (HX OF AFIB). CALL LIGHT IN REACH. DAVID HUGGER/WARMER ON PATIENT
[2020-06-29 16:01] LABS: BASOPHILS # (AUTO) 0.02 x10^3/uL (0-0.1); BASOPHILS % (AUTO) 0 % (0-1); EOSINOPHILS # (AUTO) 0.07 x10^3/uL (0-0.4); EOSINOPHILS % (AUTO) 1 % (1-7); LYMPHOCYTES # (AUTO) 1.77 x10^3/uL (1-3.4); LYMPHOCYTES % (AUTO) 19 % (22-44); MD NO; MEAN CORPUSCULAR HEMOGLOBIN 28.5 pg (27.0-34.8); MEAN CORPUSCULAR HGB CONC 32.4 g/dL (32.4-35.8); MEAN CORPUSCULAR VOLUME 87.8 fL (80-100); MEAN PLATELET VOLUME 9.5 fL (7.4-10.4); MONOCYTES # (AUTO) 0.65 x10^3/uL (0.2-0.8); MONOCYTES % (AUTO) 7 % (2-9); NEUTROPHILS # (AUTO) 7.11 x10^3/uL (1.8-6.8); NEUTROPHILS % (AUTO) 74 % (42-75); PLATELET COUNT 191 x10^3/uL (130-400); RED BLOOD COUNT 4.81 x10^6/uL (3.82-5.3); RED CELL DISTRIBUTION WIDTH 14.8 % (9.6-15.2)
[2020-06-29 16:16] LABS: ALBUMIN 3.5 g/dL (3.4-5.0); ANION GAP 10 mmol/L (5-15); CALCIUM 9.2 mg/dL (8.5-10.1); CHLORIDE 107 mmol/L (98-107)
[2020-06-29 16:19] LABS: ALANINE AMINOTRANSFERASE 26 U/L (12-78); ALKALINE PHOSPHATASE 84 U/L (45-117); BILIRUBIN,TOTAL 0.4 mg/dL (0.2-1.0); CREATININE 1.12 mg/dL (0.55-1.02); TROPONIN I < 0.015 ng/mL (0.000-0.045)
--- NOTE | 2020-06-29 16:30 | NUR ---
PATIENT PROVIDED WITH FOOD. IVF RUNNING. RESPIRATIONS EVEN AND UNLABORED, VSS, NADN AT THIS TIME. CALL LIGHT IN REACH
--- NOTE | 2020-06-29 17:13 | NUR ---
IVF RUNNING, PIV IS POSITIONAL MAKING FLUIDS INFUSE SLOWER. REPOSITIONED FOR SLIGHTLY FASTER ADMIN OF FLUIDS. MONITORING IN PLACE, VSS, NADN. CALL LIGHT IN REACH
[2020-06-29 17:41] VITALS: BP 142/50
--- NOTE | 2020-06-29 17:41 | NUR ---
PATIENT C/O LEFT EAR PAIN AND SLIGHT STIFFNESS TO NECK. WILL NOTIFY ERP
--- NOTE | 2020-06-29 17:46 | NUR ---
ERP IN ROOM TO EVALUATE LEFT EAR
--- NOTE | 2020-06-29 18:29 | NUR ---
Patient given discharge instructions and they have confirmed that they understand the instructions. Patient ambulatory with steady gait with walker
== END 2020-06-29 18:30 | disposition home or self-care (01) ==
LOC: ED 15:54
DX: R42 Dizziness and giddiness (principal); H60.502 Unspecified acute noninfective otitis externa, left ear; R07.89 Other chest pain; E10.65 Type 1 diabetes mellitus with hyperglycemia; R94.31 Abnormal electrocardiogram [ECG] [EKG]; R55 Syncope and collapse; I10 Essential (primary) hypertension; J44.9 Chronic obstructive pulmonary disease, unspecified; Z90.49 Acquired absence of other specified parts of digestive tract; Z86.718 Personal history of other venous thrombosis and embolism
CPT/HCPCS: 36415; 71045; 80053; 84484; 85025; 85379; 93005; 96360; 96361; 99285; J7030

== ENCOUNTER 2020-07-16 11:34 | Emergency (ER) | payer MEDICARE, MEDICAID ==
[~2020-07-16] VITALS: Ht 160 cm; Wt 57.9 kg
[2020-07-16 11:37] VITALS: BP 151/71
--- NOTE | 2020-07-16 12:02 | NUR ---
Pt arrives to ed with new onset of sob and left leg swelling. Pt reports chronic hx of DVT's. Pt denies any trauma. She has noted that with ambulation she becomes more SOB and unable to walk for long distnaces. Pt reprots changes in some medications. Pt in bed does not appear in distress and is breathing unalbored. Left leg does have swelling and 2+pitting edema present. Non painful to touch. Pt connected to Nipb, SPo2, HR, and being closlet monitored. Fall precautions reveiwed. Awaiting further orders.
[2020-07-16] MEDS ORDERED: UMEC62.5 INH (12:32)
[2020-07-16] MEDS ORDERED: CALC300T5 PO (12:32)
[2020-07-16] MEDS ORDERED: METF500T27 PO (12:32)
[2020-07-16] MEDS ORDERED: DULA1.5P SC (12:32)
[2020-07-16] MEDS ORDERED: ESOM40CA PO (12:32)
[2020-07-16] MEDS ORDERED: ALBU18HF INH (12:32)
[2020-07-16] MEDS ORDERED: SERT100T32 PO (12:32)
[2020-07-16] MEDS ORDERED: TRAZ150T62 PO (12:32)
[2020-07-16] MEDS ORDERED: TRAM50TA2 PO (12:32)
[2020-07-16] MEDS ORDERED: CELE50CA PO (12:32)
[2020-07-16] MEDS ORDERED: ONDA4TAB13 SL (12:32)
[2020-07-16] MEDS ORDERED: AMLO10TA8 PO (12:32)
[2020-07-16] MEDS ORDERED: INSU100V8 SQ (12:32)
[2020-07-16] MEDS ORDERED: ATOR20TA37 PO (12:32)
[2020-07-16 12:59] LABS: BASOPHILS # (AUTO) 0.04 x10^3/uL (0-0.1); BASOPHILS % (AUTO) 1 % (0-1); EOSINOPHILS # (AUTO) 0.11 x10^3/uL (0-0.4); EOSINOPHILS % (AUTO) 2 % (1-7); LYMPHOCYTES % (AUTO) 41 % (22-44); MD NO; MEAN CORPUSCULAR HEMOGLOBIN 28.2 pg (27.0-34.8); MEAN CORPUSCULAR HGB CONC 32.4 g/dL (32.4-35.8); MEAN PLATELET VOLUME 9.2 fL (7.4-10.4); MONOCYTES # (AUTO) 0.42 x10^3/uL (0.2-0.8); MONOCYTES % (AUTO) 8 % (2-9); NEUTROPHILS # (AUTO) 2.65 x10^3/uL (1.8-6.8); NEUTROPHILS % (AUTO) 49 % (42-75); PLATELET COUNT 211 x10^3/uL (130-400); RED BLOOD COUNT 4.77 x10^6/uL (3.82-5.3); RED CELL DISTRIBUTION WIDTH 14.4 % (9.6-15.2)
[2020-07-16 13:11] LABS: ALBUMIN 3.4 g/dL (3.4-5.0); ANION GAP 4 mmol/L (5-15); CALCIUM 9.2 mg/dL (8.5-10.1); CHLORIDE 107 mmol/L (98-107); CREATININE 0.89 mg/dL (0.55-1.02)
--- NOTE | 2020-07-16 14:50 | NUR ---
Awaiting for provider to look at patients right ear.
--- NOTE | 2020-07-16 15:20 | NUR ---
Patient/Caregiver given discharge instructions and they have confirmed that they understand the instructions. Patient ambulatory with steady gait.
== END 2020-07-16 15:21 | disposition home or self-care (01) ==
LOC: ED 12:09
DX: H60.11 Cellulitis of right external ear (principal); M79.662 Pain in left lower leg; M79.661 Pain in right lower leg; R94.31 Abnormal electrocardiogram [ECG] [EKG]; I10 Essential (primary) hypertension; E11.9 Type 2 diabetes mellitus without complications; K21.9 Gastro-esophageal reflux disease without esophagitis
CPT/HCPCS: 36415; 71045; 80048; 82040; 85025; 93005; 93970; 99285

== ENCOUNTER 2020-07-20 15:06 | Emergency (ER) | payer MEDICARE, MEDICAID ==
[~2020-07-20] VITALS: Ht 160 cm; Wt 59.4 kg
[~2020-07-20 15:06] MED LIST changes: +ALBU18HF INH; +ATOR20TA37 PO; +CALC300T5 PO; +CELE50CA PO; +DULA1.5P SC; +ESOM40CA PO; +METF500T27 PO; +TRAM50TA2 PO; +TRAZ150T62 PO; +UMEC62.5 INH
[2020-07-20 17:01] LABS: ALBUMIN 3.5 g/dL (3.4-5.0); ANION GAP 6 mmol/L (5-15); CALCIUM 8.9 mg/dL (8.5-10.1); CHLORIDE 108 mmol/L (98-107); CREATININE 1.22 mg/dL (0.55-1.02)
[2020-07-20 17:05] LABS: BASOPHILS # (AUTO) 0.04 x10^3/uL (0-0.1); BASOPHILS % (AUTO) 0 % (0-1); EOSINOPHILS # (AUTO) 0.08 x10^3/uL (0-0.4); EOSINOPHILS % (AUTO) 1 % (1-7); LYMPHOCYTES # (AUTO) 1.81 x10^3/uL (1-3.4); LYMPHOCYTES % (AUTO) 16 % (22-44); MD NO; MEAN CORPUSCULAR HEMOGLOBIN 28.2 pg (27.0-34.8); MEAN CORPUSCULAR HGB CONC 32.4 g/dL (32.4-35.8); MEAN PLATELET VOLUME 9.3 fL (7.4-10.4); MONOCYTES # (AUTO) 0.73 x10^3/uL (0.2-0.8); MONOCYTES % (AUTO) 6 % (2-9); NEUTROPHILS # (AUTO) 8.99 x10^3/uL (1.8-6.8); NEUTROPHILS % (AUTO) 77 % (42-75); PLATELET COUNT 204 x10^3/uL (130-400); RED BLOOD COUNT 4.77 x10^6/uL (3.82-5.3); RED CELL DISTRIBUTION WIDTH 14.7 % (9.6-15.2); TROPONIN I < 0.015 ng/mL (0.000-0.045)
[2020-07-20 17:31] VITALS: BP 145/48
== END 2020-07-20 18:45 | disposition home or self-care (01) ==
LOC: ED 17:07
DX: R42 Dizziness and giddiness (principal); R53.1 Weakness; R11.0 Nausea; R94.31 Abnormal electrocardiogram [ECG] [EKG]; M54.2 Cervicalgia; M54.9 Dorsalgia, unspecified; I10 Essential (primary) hypertension; E11.65 Type 2 diabetes mellitus with hyperglycemia; E78.5 Hyperlipidemia, unspecified; K21.9 Gastro-esophageal reflux disease without esophagitis; J44.9 Chronic obstructive pulmonary disease, unspecified; Z90.49 Acquired absence of other specified parts of digestive tract; F17.210 Nicotine dependence, cigarettes, uncomplicated
CPT/HCPCS: 36415; 80048; 82040; 83605; 84484; 85025; 93005; 99284

== ENCOUNTER 2020-09-22 11:54 | Emergency (ER) | payer MEDICARE, MEDICAID ==
[~2020-09-22] VITALS: Ht 160 cm; Wt 58.0 kg
[~2020-09-22 11:54] MED LIST changes: +AMLO-211 PO; -AMLO10TA8 PO; -LATA2.5D3 EACHEYE; +LATA2.5D4 EACHEYE; -MECL12.581 PO; +MECL12.582 PO; -MONT10TA11 PO; +MONT10TA96 PO; -NICO-487 TD; +NICO-587 TD; -RISP0.5T3 PO; +RISP0.5T62 PO
--- NOTE | 2020-09-22 12:16 | NUR ---
ERMD AT BEDSIDE FOR EVALUATION.
--- NOTE | 2020-09-22 12:17 | NUR ---
PATIENT BROUGHT BACK FROM TRIAGE IN POWER WHEELCHAIR WITH CHIEF C/O GLF. PATIENT STATES YESTERDAY HER RIGHT KNEE GAVE OUT ON HER AND SHE FELL AND HIT HER LEFT SIDE. PATIENT C/O LEFT SIDED HIP AND RIB PAIN. PATIENT ALSO STATES SHE IS UNSURE IF SHE HIT HER HEAD BUT SINCE FALL HAS BEEN HAVING HEADACHES. PATIENT DENIES N/V, DENIES BLURRY VISION. NADN, VSS, SIDE RAILS UP X2, WARM BLANKET PROVIDED, CALL LIGHT WITHIN REACH. Addendum: 09/22/20 at 1225 by [email or web address] PATIENT DENIES LOC.
[2020-09-22] MEDS ORDERED: IBUPROFEN 200 MG TABLET ONE (12:27)
[2020-09-22] MEDS ORDERED: IBUPROFEN 200 MG TABLET PO ONE (12:30)
--- NOTE | 2020-09-22 12:40 | NUR ---
PATIENT TO IMAGING.
[2020-09-22 12:58] VITALS: BP 176/59
--- NOTE | 2020-09-22 13:23 | NUR ---
Lace-up wrist splint applied to patient's left wrist. Patient given discharge instructions and they have confirmed that they understand the instructions. Patient stable, walked patient to discharge desk, patient wheeled self from ED in power wheelchair.
== END 2020-09-22 13:24 | disposition home or self-care (01) ==
LOC: ED 12:55
DX: S63.522A Sprain of radiocarpal joint of left wrist, initial encounter (principal); S20.212A Contusion of left front wall of thorax, initial encounter; S30.0XXA Contusion of lower back and pelvis, initial encounter; S60.212A Contusion of left wrist, initial encounter; S90.112A Contusion of left great toe without damage to nail, initial encounter; R07.9 Chest pain, unspecified; I10 Essential (primary) hypertension; E11.9 Type 2 diabetes mellitus without complications; J44.9 Chronic obstructive pulmonary disease, unspecified; Z90.49 Acquired absence of other specified parts of digestive tract; F17.200 Nicotine dependence, unspecified, uncomplicated; W18.30XA Fall on same level, unspecified, initial encounter; Y93.89 Activity, other specified; Y92.009 Unspecified place in unspecified non-institutional (private) residence as the place of occurrence of the external cause; Y99.8 Other external cause status
CPT/HCPCS: 29125; 71045; 99284

== ENCOUNTER 2020-10-06 20:12 | Observation (INO) | payer MEDICARE, MEDICAID ==
[~2020-10-06] VITALS: Ht 160 cm; Wt 61.5 kg
[~2020-10-06 20:12] MED LIST changes: +HYDR-1067 PO; -HYDR-3240 PO; -HYDR-3246 PO; +HYDR-3248 PO; -OXYC5TAB3 PO; +OXYC5TAB98 PO
[2020-10-06] MEDS ORDERED: MAALOX/HYOSCYAMINE/LIDOCAINE 45 ML BTL PO ONE (20:30)
[2020-10-06 20:58] LABS: BASOPHILS % (AUTO) 1 % (0-1); EOSINOPHILS % (AUTO) 2 % (1-7); LYMPHOCYTES % (AUTO) 33 % (22-44); MEAN CORPUSCULAR HEMOGLOBIN 28.1 pg (27.0-34.8); MEAN CORPUSCULAR HGB CONC 32.9 g/dL (32.4-35.8); MEAN PLATELET VOLUME 8.7 fL (7.4-10.4); MONOCYTES % (AUTO) 8 % (2-9); NEUTROPHILS % (AUTO) 57 % (42-75); PLATELET COUNT 186 x10^3/uL (130-400); RED CELL DISTRIBUTION WIDTH 14.7 % (9.6-15.2)
[2020-10-06 21:02] LABS: ALANINE AMINOTRANSFERASE 19 U/L (12-78); ALBUMIN 3.5 g/dL (3.4-5.0); ANION GAP 5 mmol/L (5-15); CALCIUM 8.8 mg/dL (8.5-10.1); CHLORIDE 110 mmol/L (98-107)
[2020-10-06 21:06] LABS: MD NO
[2020-10-06 21:07] LABS: ALKALINE PHOSPHATASE 97 U/L (45-117); BILIRUBIN,TOTAL 0.6 mg/dL (0.2-1.0); CREATININE 0.94 mg/dL (0.55-1.02); TROPONIN I < 0.015 ng/mL (0.000-0.045)
[2020-10-06] MEDS ORDERED: MAALOX/HYOSCYAMINE/LIDOCAINE 45 ML BTL ONE ×2 (21:22→21:32)
--- NOTE | 2020-10-06 21:43 | NUR ---
PT RESTING WENT TO RESTROOM NO NEW COMPLAINTS GAVE GI COCKTAIL WAITING RESULTS...
--- NOTE | 2020-10-06 22:10 | NUR ---
REPORT RECEIVED FROM KORTNEY URIOSTEGUI FOR TRANSFER OF PATIENT CARE.
--- NOTE | 2020-10-06 22:15 | NUR ---
FIRST CONTACT WITH PATIENT: LAYING IN GURNEY, WATCHING TV, NADN, VSS, SIDE RAILS UP X2, CALL LIGHT WITHIN REACH.
[2020-10-06] MEDS ORDERED: ONDANSETRON 2MG/ML, 2ML ONE (23:24)
[2020-10-06] MEDS ORDERED: HYDROmorphone 2 MG/ML, 1ML ONE (23:24)
[2020-10-06] MEDS ORDERED: HYDROmorphone 2 MG/ML, 1ML IVPush ONE (23:30)
[2020-10-06] MEDS ORDERED: ONDANSETRON 2MG/ML, 2ML IVPush ONE (23:30)
[2020-10-06] MEDS ORDERED: OMNIPAQUE 350 MG/ML, 100ML BOTTLE ONE (23:45)
--- NOTE | 2020-10-07 00:06 | NUR ---
REPORT GIVEN TO KORTNEY HUNTER FOR TRANSFER OF PATIENT CARE.
--- NOTE | 2020-10-07 00:11 | NUR ---
report from gia assumed care of pt
--- NOTE | 2020-10-07 01:26 | NUR ---
PT PLACED ON HOSPITAL BED FOR COMFORT, PT IN NAD
[2020-10-07] MEDS ORDERED: POTASSIUM CHLORIDE 20 MEQ in SODIUM CHLORIDE 0.9% 250 ML IV ONE (02:30)
[2020-10-07] MEDS ORDERED: LACTATED RINGERS 1,000 ML IV SCH (02:30)
[2020-10-07] MEDS ORDERED: LABETALOL 5MG/ML, 20ML IVPush PRN (02:30)
[2020-10-07] MEDS ORDERED: ENOXAPARIN 60 MG/0.6 ML ONE (02:34)
[2020-10-07] MEDS: ENOXAPARIN 60 MG/0.6 ML SQ SCH ×2 (02:42→15:43)
[2020-10-07] MEDS ORDERED: HYDROmorphone 2 MG/ML, 1ML ONE ×2 (02:46→08:52)
[2020-10-07] MEDS: HYDROmorphone 2 MG/ML, 1ML IVPush PRN ×6 (02:49→23:49)
[2020-10-07] MEDS ORDERED: ONDANSETRON 2MG/ML, 2ML ONE (08:23)
[2020-10-07] MEDS: ONDANSETRON 2MG/ML, 2ML IVPush PRN (08:29)
--- NOTE | 2020-10-07 08:55 | NUR ---
BREAK RN: PATIENT MEDICATED PER eMAR, NG TUBE SET TO LOW INTERMITTENT SUCTION, NADN, VSS, CALL LIGHT WITHN REACH.
--- NOTE | 2020-10-07 10:24 | NUR ---
Report called to KORTNEY Sosa on 4th floor for room 464. Pt reassessed and ready for transport. Pt made aware of room number.
[2020-10-07 12:57] VITALS: BP 102/38
[2020-10-07] MEDS: METOCLOPRAMIDE 5 MG/ML, 2ML IV SCH ×2 (15:41→22:41)
[2020-10-07] MEDS ORDERED: BISACODYL 10 MG SUPP PR ONE (16:00)
[2020-10-07] MEDS ORDERED: INSULIN REGULAR 100 UNITS/ML, 3ML VIAL SQ-INSULIN SCH (16:00)
[2020-10-07] MEDS: INSULIN REGULAR 100 UNITS/ML, 3ML VIAL SQ-INSULIN SCH ×2 (16:00→22:00)
[2020-10-07 16:28] LABS: MICROSCOPIC AUTO
[2020-10-07] MEDS: D5%-LACTATED RINGERS 1,000 ML IV SCH (17:03)
[2020-10-07 18:59] VITALS: BP 119/58
[2020-10-08 01:55] VITALS: BP 124/73
[2020-10-08] MEDS ORDERED: LACTATED RINGERS 1,000 ML IV SCH (02:30)
[2020-10-08] MEDS: INSULIN REGULAR 100 UNITS/ML, 3ML VIAL SQ-INSULIN SCH ×4 (04:00→22:49)
[2020-10-08] MEDS: ENOXAPARIN 60 MG/0.6 ML SQ SCH ×2 (04:10→16:24)
[2020-10-08] MEDS: HYDROmorphone 2 MG/ML, 1ML IVPush PRN ×4 (04:11→23:26)
[2020-10-08] MEDS: METOCLOPRAMIDE 5 MG/ML, 2ML IV SCH ×4 (04:11→22:44)
[2020-10-08 06:12] LABS: ANION GAP 5 mmol/L (5-15); CALCIUM 8.7 mg/dL (8.5-10.1); CHLORIDE 109 mmol/L (98-107)
[2020-10-08 06:15] LABS: CREATININE 0.86 mg/dL (0.55-1.02)
[2020-10-08 06:21] LABS: BASOPHILS % (AUTO) 1 % (0-1); EOSINOPHILS % (AUTO) 2 % (1-7); LYMPHOCYTES % (AUTO) 38 % (22-44); MEAN CORPUSCULAR HGB CONC 32.7 g/dL (32.4-35.8); MEAN PLATELET VOLUME 10.7 fL (7.4-10.4); MONOCYTES % (AUTO) 10 % (2-9); NEUTROPHILS % (AUTO) 50 % (42-75); PLATELET COUNT 124 x10^3/uL (130-400); RED BLOOD COUNT 4.78 x10^6/uL (3.82-5.3); RED CELL DISTRIBUTION WIDTH 14.6 % (9.6-15.2)
[2020-10-08 06:42] LABS: MD SCAN
[2020-10-08] MEDS: D5%-LACTATED RINGERS 1,000 ML IV SCH (07:34)
[2020-10-08 07:48] VITALS: BP 134/78
[2020-10-08] MEDS: ONDANSETRON 2MG/ML, 2ML IVPush PRN (09:38)
[2020-10-08] MEDS ORDERED: OMNIPAQUE 350 MG/ML, 150 ML BOTTLE ONE (11:01)
[2020-10-08 13:27] VITALS: BP 147/79
[2020-10-08] MEDS ORDERED: GLUCAGON 1 MG IM PRN (14:30)
[2020-10-08] MEDS ORDERED: DEXTROSE 50%, 50ML SYRINGE IVPush PRN (14:30)
[2020-10-08] MEDS ORDERED: DEXTROSE 4 GM TAB.CHEW PO PRN (14:30)
[2020-10-08 18:55] VITALS: BP 139/59
[2020-10-08] MEDS: SODIUM CHLORIDE FLUSH 10ML SYR IVF SCH (22:44)
[2020-10-09] MEDS: D5%-LACTATED RINGERS 1,000 ML IV SCH (00:28)
[2020-10-09 01:15] VITALS: BP 140/77
[2020-10-09] MEDS: HYDROmorphone 2 MG/ML, 1ML IVPush PRN (03:25)
[2020-10-09] MEDS: ENOXAPARIN 60 MG/0.6 ML SQ SCH (04:29)
[2020-10-09] MEDS: METOCLOPRAMIDE 5 MG/ML, 2ML IV SCH (04:29)
[2020-10-09] MEDS ORDERED: FLU VACC QS2020-21(6MOS UP)/PF 60MCG/0.5 ML SYR IM ONE (04:30)
[2020-10-09] MEDS: INSULIN REGULAR 100 UNITS/ML, 3ML VIAL SQ-INSULIN SCH ×2 (04:32→10:00)
[2020-10-09 05:56] LABS: CHLORIDE 110 mmol/L (98-107)
[2020-10-09 06:03] LABS: ANION GAP 5 mmol/L (5-15); CALCIUM 8.9 mg/dL (8.5-10.1); CREATININE 0.69 mg/dL (0.55-1.02)
[2020-10-09 07:12] VITALS: BP 140/56
[2020-10-09] MEDS ORDERED: BUSPIRONE 10 MG TABLET PO SCH (09:00)
[2020-10-09] MEDS ORDERED: TRAZODONE 150MG TABLET PO SCH (09:00)
[2020-10-09] MEDS ORDERED: AMLODIPINE 5 MG TABLET PO SCH (09:00)
[2020-10-09] MEDS ORDERED: SERTRALINE 100MG TABLET PO SCH (09:00)
[2020-10-09] MEDS ORDERED: GABAPENTIN 100 MG CAPSULE PO SCH (09:00)
[2020-10-09] MEDS: SODIUM CHLORIDE FLUSH 10ML SYR IVF SCH (09:00)
[2020-10-09] MEDS ORDERED: METF10007 PO (09:11)
[2020-10-09] MEDS ORDERED: VALS40TA10 PO (09:11)
[2020-10-09] MEDS ORDERED: POLY17PO5 PO (09:13)
[2020-10-09] MEDS ORDERED: ATORVASTATIN 40 MG TABLET PO SCH (21:00)
== END 2020-10-09 11:40 | disposition home or self-care (01) ==
LOC: ED 21:05 → INTOOBSV 10-07 00:51 → EDIP 10-07 00:51 → 4NE 10-07 10:57 → DCLOUNGE 10-09 11:31
PROVIDERS: ADMIT Family Medicine; ATTEND Internal Medicine
DX: K56.609 Unspecified intestinal obstruction, unspecified as to partial versus complete obstruction (principal); I27.82 Chronic pulmonary embolism; E87.6 Hypokalemia; I82.409 Acute embolism and thrombosis of unspecified deep veins of unspecified lower extremity; R35.0 Frequency of micturition; M79.605 Pain in left leg; M79.604 Pain in right leg; R53.1 Weakness; R53.81 Other malaise; E11.9 Type 2 diabetes mellitus without complications; J44.9 Chronic obstructive pulmonary disease, unspecified; I10 Essential (primary) hypertension; E78.5 Hyperlipidemia, unspecified; K27.9 Peptic ulcer, site unspecified, unspecified as acute or chronic, without hemorrhage or perforation; G47.33 Obstructive sleep apnea (adult) (pediatric); M54.32 Sciatica, left side; M25.511 Pain in right shoulder; H40.9 Unspecified glaucoma; R33.9 Retention of urine, unspecified; F32.9 Major depressive disorder, single episode, unspecified; F17.200 Nicotine dependence, unspecified, uncomplicated; Z87.440 Personal history of urinary (tract) infections; Z86.718 Personal history of other venous thrombosis and embolism; Z79.899 Other long term (current) drug therapy; Z79.84 Long term (current) use of oral hypoglycemic drugs; Z90.710 Acquired absence of both cervix and uterus; Z23 Encounter for immunization
CPT/HCPCS: 36415; 71045; 74177; 74250; 76700; 80048; 80053; 81001; 82947; 82962; 83735; 84484; 85025; 90686; 93005; 96361; 96365; 96366; 96372; 96375; 96376; 99285; G0008; G0378; J1170; J1650; J2405; J2765; J3480; J7050; J7120; J7121; Q9967; 96374

== ENCOUNTER 2020-11-16 11:52 | Emergency (ER) | payer MEDICARE, MEDICAID ==
[~2020-11-16] VITALS: Ht 160 cm; Wt 60.9 kg
[~2020-11-16 11:52] MED LIST changes: -ASPI-515 PO; +ASPI-963 PO; -MECL12.582 PO; +MECL12.590 PO; +MONT10TA17 PO; -MONT10TA96 PO; +POLY17PO5 PO; +VALS40TA10 PO
--- NOTE | 2020-11-16 12:44 | NUR ---
U/S AT BS. PT STATES SHE WAS TOLD SHE HAS BLOOD CLOTS IN BOTH LEGS. HAS HX OF CLOTS IN LE'S BILAT W/ HOSPITALIZATION. TAKING ELIQUIS - TOOK MORNING DOSE TODAY. PEDAL PULSE STRONG & REG BILAT. ALSO C/O SWELLING TO RT FA THAT STARTED THIS AM. DENIES TRAUMA, BLOOD CLOT. RT FA SIMILAR IN SIZE TO LT FA. NO PAIN MED TAKEN TODAY.
[2020-11-16 12:53] LABS: ALANINE AMINOTRANSFERASE 19 U/L (12-78); ALBUMIN 3.2 g/dL (3.4-5.0); ANION GAP 4 mmol/L (5-15); CALCIUM 8.3 mg/dL (8.5-10.1); CHLORIDE 110 mmol/L (98-107); CREATININE 1.03 mg/dL (0.55-1.02)
[2020-11-16 12:54] LABS: PROTHROMBIN TIME 10.7 Seconds (9.6-11.5)
[2020-11-16 12:55] LABS: ALKALINE PHOSPHATASE 87 U/L (45-117); BILIRUBIN,TOTAL 0.3 mg/dL (0.2-1.0); TOTAL PROTEIN 6.3 g/dL (6.4-8.2)
[2020-11-16 13:09] LABS: BASOPHILS % (AUTO) 1 % (0-1); EOSINOPHILS % (AUTO) 3 % (1-7); LYMPHOCYTES % (AUTO) 36 % (22-44); MD NO; MEAN CORPUSCULAR HEMOGLOBIN 28.2 pg (27.0-34.8); MEAN CORPUSCULAR HGB CONC 32.9 g/dL (32.4-35.8); MEAN PLATELET VOLUME 8.8 fL (7.4-10.4); MONOCYTES % (AUTO) 10 % (2-9); NEUTROPHILS % (AUTO) 50 % (42-75); PLATELET COUNT 215 x10^3/uL (130-400); RED BLOOD COUNT 4.47 x10^6/uL (3.82-5.3); RED CELL DISTRIBUTION WIDTH 15.8 % (9.6-15.2)
--- NOTE | 2020-11-16 13:28 | NUR ---
U/S DONE. PT TO CT PER LUPE
[2020-11-16 15:10] VITALS: BP 169/47
[2020-11-16] MEDS ORDERED: HYDR-3237 PO (15:14)
== END 2020-11-16 15:36 | disposition home or self-care (01) ==
LOC: ED 14:24
DX: G89.29 Other chronic pain (principal); M79.662 Pain in left lower leg; R51.9 Headache, unspecified; I10 Essential (primary) hypertension; E11.9 Type 2 diabetes mellitus without complications; J44.9 Chronic obstructive pulmonary disease, unspecified; K21.9 Gastro-esophageal reflux disease without esophagitis; Z86.718 Personal history of other venous thrombosis and embolism
CPT/HCPCS: 36415; 70450; 71045; 80053; 85025; 85610; 85730; 93005; 93970; 99285

== ENCOUNTER 2020-12-10 09:36 | Emergency (ER) | payer MEDICARE, MEDICAID ==
[~2020-12-10] VITALS: Ht 160 cm; Wt 62.0 kg
[~2020-12-10 09:36] MED LIST changes: +HYDR-3237 PO; +MECL12.582 PO; -MECL12.590 PO
--- NOTE | 2020-12-10 10:00 | NUR ---
THIS IS A 75 YO F W/ C/O EPIGASTRIC PAIN, GENERAL ABD PAIN AND NAUSEA SINCE YESTERDAY. PT REPORTS WHEELED SELF W/ POWER CHAIR HERE TODAY. PT HAS HX OF DVT'S, CHF, DM AND COPD. PT REPORTS IS SCHEDULED TO HAVE VASCUALR SURGERY FOR DVT'S ON 12/25. PT REPORTS COMPLIANT W/ MEDS INCLUDING ELIQUIS. PT REPORTS RECEIVED 1ST COVID VACCINE X8 DAYS AGO. PT RESTING ON Droidhen W/ CALL LIGHT IN REACH AND SIDE RAILS UPX2. RESP EVEN AND UNLABORED, NADN.
--- NOTE | 2020-12-10 10:05 | NUR ---
ESTEPHANIA VILLANUEVA AT BEDSIDE.
--- NOTE | 2020-12-10 10:10 | NUR ---
PT AMBULATED TO THE BR W/A STEADY GAIT. PROVIDED URINE CUP AND EDUCATED ON CLEAN CATCH.
[2020-12-10 10:36] LABS: MICROSCOPIC AUTO
[2020-12-10 10:37] LABS: BASOPHILS % (AUTO) 1 % (0-1); EOSINOPHILS % (AUTO) 2 % (1-7); LYMPHOCYTES % (AUTO) 29 % (22-44); MEAN CORPUSCULAR HEMOGLOBIN 28.1 pg (27.0-34.8); MEAN CORPUSCULAR HGB CONC 32.8 g/dL (32.4-35.8); MEAN PLATELET VOLUME 9.1 fL (7.4-10.4); MONOCYTES % (AUTO) 8 % (2-9); NEUTROPHILS % (AUTO) 61 % (42-75); PLATELET COUNT 219 x10^3/uL (130-400); RED BLOOD COUNT 4.66 x10^6/uL (3.82-5.3); RED CELL DISTRIBUTION WIDTH 15.3 % (9.6-15.2)
[2020-12-10 10:38] LABS: MD NO
[2020-12-10] MEDS ORDERED: ONDANSETRON ODT 4 MG ONE (10:44)
[2020-12-10 10:47] LABS: ALANINE AMINOTRANSFERASE 20 U/L (12-78); ALBUMIN 3.5 g/dL (3.4-5.0); ANION GAP 7 mmol/L (5-15); CHLORIDE 107 mmol/L (98-107); CREATININE 0.95 mg/dL (0.55-1.02)
[2020-12-10 10:51] LABS: ALKALINE PHOSPHATASE 91 U/L (45-117); BILIRUBIN,TOTAL 0.4 mg/dL (0.2-1.0); TOTAL PROTEIN 6.7 g/dL (6.4-8.2); TROPONIN I < 0.015 ng/mL (0.000-0.045)
--- NOTE | 2020-12-10 10:51 | NUR ---
PT MEDICATED PER EMAR. RESTING ON GURNEY W/ CALL LIGHT IN REACH AND SIDE RAILSUPX2. RESP EVEN AND UNLABORED, ABBIE.
[2020-12-10] MEDS ORDERED: ONDANSETRON ODT 4 MG PO ONE (11:00)
--- NOTE | 2020-12-10 11:00 | NUR ---
ALL TESTS RESULTED. PT IS UP FOR RECHECK AT THIS TIME.
[2020-12-10] MEDS ORDERED: LIDOCAINE-MPF 1%, 5ML ONE (12:18)
[2020-12-10] MEDS ORDERED: CEFTRIAXONE 1,000 MG ONE (12:18)
[2020-12-10] MEDS ORDERED: ACETAMINOPHEN 500 MG TABLET ONE (12:18)
[2020-12-10 12:28] VITALS: BP 166/57
[2020-12-10] MEDS ORDERED: KETOROLAC 30 MG/1 ML IM ONE (12:30)
[2020-12-10] MEDS ORDERED: CEFTRIAXONE 1,000 MG IM ONE (12:30)
[2020-12-10] MEDS ORDERED: ACETAMINOPHEN 500 MG TABLET PO ONE (12:30)
--- NOTE | 2020-12-10 12:45 | NUR ---
PT VERABLIZED UNDERSTANDING OF DC INSTRUCTIONS. AWAKE AND ALERT, RESP EVEN AND UNLABORED, NADN. PT WHEELED SELF IN POWERCHAIR TO DC DESK.
== END 2020-12-10 12:47 | disposition home or self-care (01) ==
LOC: ED 12:40
DX: N30.00 Acute cystitis without hematuria (principal); I10 Essential (primary) hypertension; E11.65 Type 2 diabetes mellitus with hyperglycemia; J44.9 Chronic obstructive pulmonary disease, unspecified; G89.29 Other chronic pain; E78.5 Hyperlipidemia, unspecified; K21.9 Gastro-esophageal reflux disease without esophagitis; F17.210 Nicotine dependence, cigarettes, uncomplicated; Z90.49 Acquired absence of other specified parts of digestive tract; Z86.718 Personal history of other venous thrombosis and embolism
CPT/HCPCS: 36415; 71045; 80053; 81001; 84484; 85025; 87077; 87086; 87186; 93005; 96372; 99285; J0696; Q0162

== ENCOUNTER 2021-02-04 13:38 | Emergency (ER) | payer MEDICAID, MEDICARE ==
[~2021-02-04] VITALS: Ht 160 cm; Wt 62.0 kg
[~2021-02-04 13:38] MED LIST changes: -HYDR-1067 PO; +HYDR-2214 PO; -MECL12.582 PO; +MECL12.590 PO
[2021-02-04] MEDS ORDERED: ASPIRIN 81 MG TABLET CHEW PO ONE (14:00)
--- NOTE | 2021-02-04 14:18 | NUR ---
program scheduler: pt to US then to room 31
[2021-02-04] MEDS ORDERED: ASPIRIN 81 MG TABLET CHEW ONE (14:20)
--- NOTE | 2021-02-04 15:15 | NUR ---
PT TO ROOM 31 AT THIS TIME.
--- NOTE | 2021-02-04 15:25 | NUR ---
PT BIB POWER WC FOR LT LOWER LEG PAIN (TOES TO CALF) THAT SHE HAS HAD FOR THE LAST WEEK BUT GOT WORSE TODAY. PT ALSO REPORTS SHE NOTICED WORSENING SWELLING TODAY. PT HAS TRACE EDEMA IN BILAT LOWER LEGS. PT ABLE TO AMBULATE BUT USES POWER WC TO GET AROUND. PT RESTING IN GURNEY, MONITORING IN PLACE, EKG DONE IN TRIAGE, US DONE BEARING GRINDER INTO ROOM, WCTM.
[2021-02-04 15:47] LABS: BASOPHILS % (AUTO) 1 % (0-1); EOSINOPHILS % (AUTO) 4 % (1-7); LYMPHOCYTES % (AUTO) 35 % (22-44); MEAN CORPUSCULAR HEMOGLOBIN 27.9 pg (27.0-34.8); MEAN CORPUSCULAR HGB CONC 32.4 g/dL (32.4-35.8); MEAN PLATELET VOLUME 9.6 fL (7.4-10.4); MONOCYTES % (AUTO) 8 % (2-9); NEUTROPHILS % (AUTO) 53 % (42-75); PLATELET COUNT 196 x10^3/uL (130-400); RED CELL DISTRIBUTION WIDTH 14.7 % (9.6-15.2)
[2021-02-04 15:52] LABS: MD NO
[2021-02-04 15:57] LABS: ALBUMIN 3.8 g/dL (3.4-5.0); ANION GAP 6 mmol/L (5-15); CALCIUM 9.1 mg/dL (8.5-10.1); CHLORIDE 106 mmol/L (98-107)
[2021-02-04 16:07] LABS: CREATININE 0.91 mg/dL (0.55-1.02); TROPONIN I < 0.015 ng/mL (0.000-0.045)
[2021-02-04 16:46] VITALS: BP 164/52
--- NOTE | 2021-02-04 16:52 | NUR ---
Patient given discharge instructions and they have confirmed that they understand the instructions. Patient wheeled self to dc desk in home powerchair wheelchair. Resp even and unlabored, tyra.
== END 2021-02-04 16:54 | disposition home or self-care (01) ==
LOC: ED 16:45
DX: R60.0 Localized edema (principal); M25.572 Pain in left ankle and joints of left foot; I10 Essential (primary) hypertension; E11.9 Type 2 diabetes mellitus without complications; J44.9 Chronic obstructive pulmonary disease, unspecified; G89.29 Other chronic pain; K21.9 Gastro-esophageal reflux disease without esophagitis; F17.200 Nicotine dependence, unspecified, uncomplicated; E78.5 Hyperlipidemia, unspecified; Z86.718 Personal history of other venous thrombosis and embolism
CPT/HCPCS: 36415; 71045; 80048; 82040; 84484; 85025; 93005; 93970; 99285

== ENCOUNTER 2021-02-08 11:28 | Emergency (ER) | payer MEDICARE, MEDICAID ==
[~2021-02-08] VITALS: Ht 160 cm; Wt 62.0 kg
--- NOTE | 2021-02-08 12:00 | NUR ---
assumed care of pt. pt here for redness to R forearm x2 days. pt reports that she thinks that she was bitten by a spider, but did not actually see anything bite her. pt hsa a small area of redness with light scabbing over it to R arm. redness is localized and no streaking noted. no other c/o
[2021-02-08 12:26] VITALS: BP 136/52
== END 2021-02-08 12:30 | disposition home or self-care (01) ==
LOC: ED 12:17
DX: L03.113 Cellulitis of right upper limb (principal); J44.9 Chronic obstructive pulmonary disease, unspecified; G89.29 Other chronic pain; K21.9 Gastro-esophageal reflux disease without esophagitis; E78.5 Hyperlipidemia, unspecified; I10 Essential (primary) hypertension; E11.65 Type 2 diabetes mellitus with hyperglycemia; F17.210 Nicotine dependence, cigarettes, uncomplicated; Z90.49 Acquired absence of other specified parts of digestive tract; Z86.718 Personal history of other venous thrombosis and embolism
CPT/HCPCS: 99283; 99406

== ENCOUNTER 2021-03-08 13:25 | Emergency (ER) | payer MEDICARE, MEDICAID ==
[~2021-03-08] VITALS: Ht 160 cm; Wt 62.4 kg
[2021-03-08] MEDS ORDERED: NEOSPORIN OINT. PKT 1 PACKET ONE (13:43)
[2021-03-08 13:58] VITALS: BP 113/64
--- NOTE | 2021-03-08 14:13 | NUR ---
Patient given discharge instructions and they have confirmed that they understand the instructions. Patient wheeled self to dc desk in home electric scooter. Resp even and unlabored, ABBIE.
== END 2021-03-08 14:16 | disposition home or self-care (01) ==
LOC: ED 13:43
DX: T21.21XA Burn of second degree of chest wall, initial encounter (principal); K21.9 Gastro-esophageal reflux disease without esophagitis; I10 Essential (primary) hypertension; E78.5 Hyperlipidemia, unspecified; Z86.718 Personal history of other venous thrombosis and embolism; T31.0 Burns involving less than 10% of body surface; X08.8XXA Exposure to other specified smoke, fire and flames, initial encounter; Y93.89 Activity, other specified; Y92.89 Other specified places as the place of occurrence of the external cause; Y99.8 Other external cause status
CPT/HCPCS: 16020; 82962; 99282

== ENCOUNTER 2021-03-25 13:27 | Emergency (ER) | payer MEDICARE, MEDICAID ==
[~2021-03-25] VITALS: Ht 160 cm; Wt 63.0 kg
[~2021-03-25 13:27] MED LIST changes: -OMEP40CA42 PO; +OMEP40CA8 PO
--- NOTE | 2021-03-25 14:01 | NUR ---
energy specialist: Pt in wheelchair to room from lobby at this time.
[2021-03-25 14:31] VITALS: BP 138/90
[2021-03-25 14:35] LABS: BASOPHILS % (AUTO) 1 % (0-1); EOSINOPHILS % (AUTO) 3 % (1-7); LYMPHOCYTES % (AUTO) 42 % (22-44); MEAN CORPUSCULAR HEMOGLOBIN 28.4 pg (27.0-34.8); MEAN CORPUSCULAR HGB CONC 33.2 g/dL (32.4-35.8); MEAN PLATELET VOLUME 9.6 fL (7.4-10.4); MONOCYTES % (AUTO) 8 % (2-9); NEUTROPHILS % (AUTO) 46 % (42-75); PLATELET COUNT 196 x10^3/uL (130-400); RED BLOOD COUNT 4.62 x10^6/uL (3.82-5.3); RED CELL DISTRIBUTION WIDTH 15.3 % (9.6-15.2)
--- NOTE | 2021-03-25 14:38 | NUR ---
PT RESTING IN [facility]. BACK FROM X RAY. FRIEND BEDSIDE. BLANKET AND PILLOW PROVIDED
[2021-03-25 14:46] LABS: ALBUMIN 3.4 g/dL (3.4-5.0); ANION GAP 8 mmol/L (5-15); CALCIUM 8.6 mg/dL (8.5-10.1); CHLORIDE 106 mmol/L (98-107); CREATININE 0.96 mg/dL (0.55-1.02)
[2021-03-25 14:51] LABS: TROPONIN I < 0.015 ng/mL (0.000-0.045)
[2021-03-25 15:18] LABS: MICROSCOPIC NOT IND
== END 2021-03-25 16:08 | disposition home or self-care (01) ==
LOC: ED 14:02
DX: G89.11 Acute pain due to trauma (principal); M25.561 Pain in right knee; R42 Dizziness and giddiness; R53.1 Weakness; R94.31 Abnormal electrocardiogram [ECG] [EKG]; I10 Essential (primary) hypertension; E78.5 Hyperlipidemia, unspecified; K21.9 Gastro-esophageal reflux disease without esophagitis; E11.9 Type 2 diabetes mellitus without complications; J44.9 Chronic obstructive pulmonary disease, unspecified; Z86.718 Personal history of other venous thrombosis and embolism; Z90.49 Acquired absence of other specified parts of digestive tract; W18.30XA Fall on same level, unspecified, initial encounter; Y93.89 Activity, other specified; Y92.89 Other specified places as the place of occurrence of the external cause; Y99.8 Other external cause status
CPT/HCPCS: 36415; 71045; 80048; 81003; 82040; 83880; 84484; 85025; 93005; 99285

== ENCOUNTER 2021-04-19 09:29 | Emergency (ER) | payer MEDICARE, MEDICAID ==
[~2021-04-19] VITALS: Ht 160 cm; Wt 68.0 kg
--- NOTE | 2021-04-19 09:45 | NUR ---
PT TO ROOM FROM LOBBY VIA PERSONAL WC, CHANGED IN TO GOWN, MONITORS IN PLACE, PT C/O BLE SWELLING (NO WARMTH/REDNESS NOTED) & INTERMIT CP "AT NIGHT WHEN I LAY DOWN"; RESPONDS APPROP TO STAFF, NAD, COMFORT MEASURES PROVIDED, CALL LIGHT WITHIN REACH, ERP AT BS.
[2021-04-19 10:21] LABS: BASOPHILS % (AUTO) 1 % (0-1); EOSINOPHILS % (AUTO) 3 % (1-7); LYMPHOCYTES % (AUTO) 37 % (22-44); MEAN CORPUSCULAR HEMOGLOBIN 28.2 pg (27.0-34.8); MEAN CORPUSCULAR HGB CONC 32.9 g/dL (32.4-35.8); MONOCYTES % (AUTO) 8 % (2-9); NEUTROPHILS % (AUTO) 52 % (42-75); PLATELET COUNT 180 x10^3/uL (130-400); RED BLOOD COUNT 4.53 x10^6/uL (3.82-5.3); RED CELL DISTRIBUTION WIDTH 15.5 % (9.6-15.2)
[2021-04-19 10:32] LABS: ALBUMIN 3.4 g/dL (3.4-5.0); ANION GAP 7 mmol/L (5-15); CHLORIDE 109 mmol/L (98-107)
[2021-04-19 10:35] LABS: ALANINE AMINOTRANSFERASE 24 U/L (12-78); ALKALINE PHOSPHATASE 98 U/L (45-117); BILIRUBIN,TOTAL 0.3 mg/dL (0.2-1.0); CREATININE 0.96 mg/dL (0.55-1.02); TOTAL PROTEIN 6.7 g/dL (6.4-8.2); TROPONIN I < 0.015 ng/mL (0.000-0.045)
[2021-04-19 12:02] VITALS: BP 152/47
--- NOTE | 2021-04-19 12:02 | NUR ---
Patient/Caregiver given discharge instructions and Rx, they have confirmed that they understand the instructions. Patient to DC desk via personal WC. NAD, all questions answered appropriately, denies additional needs at this time. No personal belongings left in room after discharge.
== END 2021-04-19 12:32 | disposition home or self-care (01) ==
LOC: ED 11:15
DX: R60.0 Localized edema (principal); B35.4 Tinea corporis; R07.9 Chest pain, unspecified; R94.31 Abnormal electrocardiogram [ECG] [EKG]; F17.200 Nicotine dependence, unspecified, uncomplicated; I10 Essential (primary) hypertension; J44.9 Chronic obstructive pulmonary disease, unspecified; E11.9 Type 2 diabetes mellitus without complications; E78.5 Hyperlipidemia, unspecified; Z90.49 Acquired absence of other specified parts of digestive tract; Z88.1 Allergy status to other antibiotic agents; Z88.6 Allergy status to analgesic agent
CPT/HCPCS: 36415; 71045; 80053; 83880; 84484; 85025; 85379; 93005; 93970; 99285

== ENCOUNTER 2021-04-29 13:29 | Emergency (ER) | payer BC, MEDICAID ==
[~2021-04-29] VITALS: Ht 160 cm; Wt 66.0 kg
--- NOTE | 2021-04-29 14:15 | NUR ---
heel molder: Pt to room via personal wheelchair from lobby at this time.
--- NOTE | 2021-04-29 14:51 | NUR ---
WITH ASSESSMENT NO ACUTE ABNORMALITY TO LEG OR ARM. HOWEVER, PATIENT RAN OUR OF OXYCODONE 3 DAYS AGO. HAS PAIN CONTRACT WITH DR. LANDA AT [facility]. NEXT APPOINTMENT NOT UNTIL THE END OF THE MONTH REPORT TO MERLE SHEETS
--- NOTE | 2021-04-29 15:06 | NUR ---
REPORT FROM ALEKSANDRA SHEETS
[2021-04-29] MEDS ORDERED: ONDANSETRON 2MG/ML, 2ML ONE (15:25)
[2021-04-29] MEDS ORDERED: SODIUM CHLORIDE FLUSH 10ML SYR IVF ONE (15:30)
[2021-04-29] MEDS ORDERED: ONDANSETRON 2MG/ML, 2ML IVPush ONE (15:30)
[2021-04-29 15:48] LABS: ALBUMIN 3.5 g/dL (3.4-5.0); ANION GAP 6 mmol/L (5-15); CALCIUM 9.1 mg/dL (8.5-10.1); CHLORIDE 107 mmol/L (98-107)
[2021-04-29 15:54] LABS: ALANINE AMINOTRANSFERASE 24 U/L (12-78); ALKALINE PHOSPHATASE 111 U/L (45-117); BASOPHILS % (AUTO) 1 % (0-1); BILIRUBIN,TOTAL 0.4 mg/dL (0.2-1.0); CREATININE 0.91 mg/dL (0.55-1.02); EOSINOPHILS % (AUTO) 2 % (1-7); LYMPHOCYTES % (AUTO) 35 % (22-44); MEAN CORPUSCULAR HEMOGLOBIN 27.9 pg (27.0-34.8); MEAN CORPUSCULAR HGB CONC 32.7 g/dL (32.4-35.8); MEAN PLATELET VOLUME 9.7 fL (7.4-10.4); MONOCYTES % (AUTO) 8 % (2-9); NEUTROPHILS % (AUTO) 54 % (42-75); PLATELET COUNT 200 x10^3/uL (130-400); RED BLOOD COUNT 4.73 x10^6/uL (3.82-5.3); RED CELL DISTRIBUTION WIDTH 15.6 % (9.6-15.2); TOTAL PROTEIN 7.3 g/dL (6.4-8.2); TROPONIN I < 0.015 ng/mL (0.000-0.045)
[2021-04-29 16:10] LABS: MICROSCOPIC NOT IND
--- NOTE | 2021-04-29 16:27 | NUR ---
PT TO IMAGING
--- NOTE | 2021-04-29 16:36 | NUR ---
PT BACK FROM CT
[2021-04-29 20:00] VITALS: BP 122/41
--- NOTE | 2021-04-29 20:34 | NUR ---
PT DC TO HOME, IN PERSONAL WHEELCHAIR. VERBALIZES UNDERSTANDING OF DC INSTRUCTIONS.
== END 2021-04-29 20:36 | disposition home or self-care (01) ==
LOC: ED 17:09
DX: R10.84 Generalized abdominal pain (principal); M25.551 Pain in right hip; M79.602 Pain in left arm; G89.29 Other chronic pain; R11.0 Nausea; R19.7 Diarrhea, unspecified; R94.31 Abnormal electrocardiogram [ECG] [EKG]; I10 Essential (primary) hypertension; E11.9 Type 2 diabetes mellitus without complications; J44.9 Chronic obstructive pulmonary disease, unspecified; K21.9 Gastro-esophageal reflux disease without esophagitis
CPT/HCPCS: 36415; 71045; 73502; 80053; 81003; 83690; 84484; 85025; 93005; 96374; 99285; J2405

== ENCOUNTER 2021-05-16 10:20 | Emergency (ER) | payer BC, MEDICAID ==
[~2021-05-16] VITALS: Ht 160 cm; Wt 68.7 kg
[2021-05-16 10:33] VITALS: BP 158/53
[2021-05-16] MEDS ORDERED: IBUPROFEN 200 MG TABLET ONE (11:32)
[2021-05-16] MEDS ORDERED: IBUPROFEN 200 MG TABLET PO ONE (12:00)
== END 2021-05-16 12:55 | disposition home or self-care (01) ==
LOC: ED 11:35
DX: S93.491A Sprain of other ligament of right ankle, initial encounter (principal); Z76.0 Encounter for issue of repeat prescription; I10 Essential (primary) hypertension; E11.9 Type 2 diabetes mellitus without complications; K21.9 Gastro-esophageal reflux disease without esophagitis; J44.9 Chronic obstructive pulmonary disease, unspecified; X58.XXXA Exposure to other specified factors, initial encounter; Y93.89 Activity, other specified; Y92.89 Other specified places as the place of occurrence of the external cause; Y99.8 Other external cause status
CPT/HCPCS: 99284

== ENCOUNTER 2021-06-09 13:51 | Outpatient (CLI) | payer MEDICARE, MEDICAID ==
[2021-06-09] MEDS ORDERED: INSU100I34 INJ (14:58)
[2021-06-09] MEDS ORDERED: VIT1TABL34 PO (14:58)
[2021-06-09] MEDS ORDERED: MULT-717 PO (14:58)
[2021-06-09] MEDS ORDERED: OMEP-110 PO (14:58)
[2021-06-09] MEDS ORDERED: buspirone (14:58)
[2021-06-09] MEDS ORDERED: FURO20TA3 PO (14:58)
[2021-06-09 15:19] LABS: ALBUMIN 3.5 g/dL (3.4-5.0); ANION GAP 7 mmol/L (5-15); CALCIUM 9.1 mg/dL (8.5-10.1); CHLORIDE 104 mmol/L (98-107)
[2021-06-09 15:20] LABS: BASOPHILS % (AUTO) 1 % (0-1); EOSINOPHILS % (AUTO) 3 % (1-7); LYMPHOCYTES % (AUTO) 42 % (22-44); MEAN CORPUSCULAR HGB CONC 33.1 g/dL (32.4-35.8); MEAN PLATELET VOLUME 9.4 fL (7.4-10.4); MONOCYTES % (AUTO) 7 % (2-9); NEUTROPHILS % (AUTO) 47 % (42-75); PLATELET COUNT 238 x10^3/uL (130-400); RED BLOOD COUNT 5.14 x10^6/uL (3.82-5.3); RED CELL DISTRIBUTION WIDTH 15.1 % (9.6-15.2)
[2021-06-09 15:23] LABS: ALANINE AMINOTRANSFERASE 23 U/L (12-78); ALKALINE PHOSPHATASE 114 U/L (45-117); BILIRUBIN,TOTAL 0.4 mg/dL (0.2-1.0); CREATININE 0.92 mg/dL (0.55-1.02); TOTAL PROTEIN 7.6 g/dL (6.4-8.2)
[2021-06-09 15:31] LABS: INTERNATIONAL NORMALIZED RATIO 1.01 (0.93-1.1); PROTHROMBIN TIME 10.8 Seconds (9.6-11.5)
[2021-06-09 15:38] LABS: MICROSCOPIC AUTO
== END 2021-06-09 23:59 | disposition home or self-care (01) ==
LOC: STAR 13:51
PROVIDERS: ATTEND Neurological Surgery
DX: Z01.818 Encounter for other preprocedural examination (principal); M48.061 Spinal stenosis, lumbar region without neurogenic claudication; M54.16 Radiculopathy, lumbar region; I25.2 Old myocardial infarction
CPT/HCPCS: 36415; 71046; 80053; 81001; 83036; 85025; 85610; 85730; 93005

== ENCOUNTER 2021-06-24 06:37 | Outpatient (CLI) | payer MEDICARE, MEDICAID ==
[~2021-06-24 06:37] MED LIST changes: +FURO20TA3 PO; +INSU100I34 INJ; +VIT1TABL34 PO; +buspirone
[2021-07-04] MEDS ORDERED: REGADENOSON 0.4 MG/5 ML SYRINGE ONE (07:48)
== END 2021-06-24 23:59 | disposition home or self-care (01) ==
LOC: CVU 06:37
PROVIDERS: ATTEND Internal Medicine Cardiovascular Disease
DX: Z01.810 Encounter for preprocedural cardiovascular examination (principal); I08.0 Rheumatic disorders of both mitral and aortic valves; I25.10 Atherosclerotic heart disease of native coronary artery without angina pectoris; I11.9 Hypertensive heart disease without heart failure
CPT/HCPCS: 93306

== ENCOUNTER 2021-07-04 12:15 | Outpatient (CLI) | payer MEDICARE, MEDICAID ==
[2021-07-04] MEDS ORDERED: REGADENOSON 0.4 MG/5 ML SYRINGE ONE (15:58)
== END 2021-07-04 23:59 | disposition home or self-care (01) ==
LOC: CFH 12:15
PROVIDERS: ATTEND Internal Medicine Cardiovascular Disease
DX: Z01.810 Encounter for preprocedural cardiovascular examination (principal); I25.10 Atherosclerotic heart disease of native coronary artery without angina pectoris; I10 Essential (primary) hypertension; R94.31 Abnormal electrocardiogram [ECG] [EKG]
CPT/HCPCS: 78452; 93017; A9502; J2785